=== PATIENT | female | born 1940 | race Caucasian/White ===

== ENCOUNTER 2019-09-26 06:54 | Outpatient (CLI) | payer MEDICARE, SELFPAY ==
[2019-09-26 07:16] LABS: Basophils Absolute Auto 0.1 K/mm3 (0.0-0.1); Basophils Percent Auto 1.9 % (0.2-1.2); Eosinophils Absolute Auto 0.2 K/mm3 (0-0.3); Eosinophils Percent Auto 4.2 % (0-4.4); Hemoglobin 12.6 g/dL (12.0-15.0); Immature Granulocyte Absolute 0.04 K/mm3 (0.00-0.031); Immature Granulocyte Percent A 0.8 % (0-0.5); Lymphocytes Absolute Auto 1.93 K/mm3 (0.9-3.2); Lymphocytes Percent Auto 40.1 % (18.3-44.2); Mean Corpuscular HGB Conc 33.2 g/dl (32-36); Mean Corpuscular Hemoglobin 34.5 pg (26-34); Mean Corpuscular Volume 104.1 fl (80-100); Mean Platelet Volume 9.4 fl (7.4-10.4); Monocytes Absolute Auto 0.4 K/mm3 (0.1-0.6); Monocytes Percent Auto 9.1 % (2.6-8.5); Neutrophils Absolute Auto 2.1 K/mm3 (1.3-6.7); Neutrophils Percent Auto 43.9 % (45.5-73.1); Nucleated Red Blood Cells Perc 0.6 % (0.0-0.2); Platelet Count Result 306 k/mm3 (150-375); Red Blood Count 3.65 M/mm3 (4.2-5.4); Red Cell Distribution Width 13.8 % (11.5-14.5); White Blood Count 4.8 K/mm3 (4.5-10.0)
[2019-09-26 07:20] LABS: Add Urine Microscopic? YES; Appearance Urine Clear (Clear); Bacteria Urine Trace /hpf; Bilirubin Urine Negative (Negative); Blood Urine Negative (Negative); Color Urine Yellow (Yellow); Glucose Urine UA Negative (Negative); Ketones Urine Negative (Negative); Leukocyte Esterase Ur 3+ LEU/UL (NEGATIVE); Mucus Urine Rare /lpf; Nitrate Urine Negative (Negative); Protein Urine Negative (Negative); Specific Grav Ur 1.017 (1.001-1.035); Squamous Epithelial Cell Urine Moderate /hpf (Few); Urobilinogen Urine Negative mg/dL (<2.0)
[2019-09-26 07:33] LABS: Alanine Aminotransferase 28 U/L (4-35); Albumin Level 4.3 g/dL (3.5-5.1); Alkaline Phosphatase 58 U/L (38-126); Aspartate Amino Transferase 27 U/L (14-36); Bilirubin,Total 0.6 mg/dL (0.2-1.3); Blood Urea Nitrogen 13 mg/dL (7-17); Calcium 9.4 mg/dL (8.4-10.2); Carbon Dioxide 28 mmol/L (22-30); Chloride 108 mmol/L (98-107); Cholesterol 175 mg/dL (0-200); Estimated Glomerular Filt Rate > 60; Glucose 109 mg/dL (65-105); HDL Direct 45 mg/dL; Potassium 4.4 mmol/L (3.4-5.0); Sodium 141 mmol/L (137-145); Triglycerides 98 mg/dL (<150)
[2019-09-26 07:44] LABS: LDL Cholesterol Direct 110 mg/dL
[2019-09-26 08:10] LABS: Vitamin D 25 Hydroxy 50.3 ng/mL
== END 2019-09-26 06:55 | disposition home or self-care (01) ==
PROVIDERS: PCP Internal Medicine; Visit Provider Internal Medicine
DX: E78.5 Hyperlipidemia, unspecified (principal); Z79.899 Other long term (current) drug therapy; E55.9 Vitamin D deficiency, unspecified
CPT/HCPCS: 36415; 80053; 80061; 81001; 82306; 84443; 85025

== ENCOUNTER 2019-09-29 07:48 | Outpatient (CLI) | payer MEDICARE, SELFPAY ==
[2019-09-29 09:14] LABS: Hemoglobin A1C 5.8 % (<5.7)
[2019-09-29 09:49] LABS: Folic Acid > 20.0 ng/mL (2.76->20)
== END 2019-09-29 07:49 | disposition home or self-care (01) ==
PROVIDERS: PCP Internal Medicine; Visit Provider Internal Medicine
DX: R73.01 Impaired fasting glucose (principal); D53.1 Other megaloblastic anemias, not elsewhere classified
CPT/HCPCS: 36415; 82607; 82746; 83036

== ENCOUNTER 2019-10-17 16:44 | Emergency (ER) | payer MEDICARE, SELFPAY ==
--- NOTE | ~2019-10-17 | XR_ITS ---
EXAMINATION: XR shoulder RT min 2V INDICATION: Right shoulder pain TECHNIQUE: Four views of the right shoulder are submitted. COMPARISON: None FINDINGS: Normal alignment. No fracture. 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 Soft tissues are unremarkable. IMPRESSION: 1. No acute osseous abnormality. Reviewed, dictated and finalized at location A.
--- NOTE | ~2019-10-17 | XR_ITS ---
EXAMINATION: XR knee RT min 4V DATE: 10/17/2019 18:26 INDICATION: Right knee pain TECHNIQUE: Four views of the right knee were obtained. COMPARISON: 08/10/2018 FINDINGS: There are changes of total knee arthroplasty. There is no evidence of hardware failure or l oosening. Alignment is normal. No fracture or osteochondral lesion. No joint effusion/synovitis. Sof t tissues are unremarkable. IMPRESSION: 1. No acute osseous abnormality. Reviewed, dictated and finalized at location A.
--- NOTE | ~2019-10-17 | XR_ITS ---
EXAMINATION: XR knee LT min 4V DATE: 10/17/2019 18:25 INDICATION: Left knee pain TECHNIQUE: Four views of the left knee were obtained. COMPARISON: 08/10/2018 FINDINGS: There are changes of left knee arthroplasty. There is no evidence of hardware failure or lo osening. Alignment is normal. No fracture or osteochondral lesion. No joint effusion/synovitis. Soft tissues are unremarkable. IMPRESSION: 1. No acute osseous abnormality. Reviewed, dictated and finalized at location A.
[2019-10-17 16:58] VITALS: BP 135/65; PULSE 75; RESP 16; TEMP 37; O2SAT 97
[2019-10-17] MEDS: ACETAMINOPHEN 500 MG TABLET 1000 MG PO (19:03)
--- NOTE | 2019-10-17 19:12 | ED.GENADULT ---
HPI - General Adult General Chief complaint: Fall Stated complaint: fall, lt shoulder and knee pain Time Seen by Provider: 10/17/19 18:26 Source: patient Mode of arrival: ambulatory Limitations: no limitations History of Present Illness HPI narrative: Patient is a 79-year-old female who presents for evaluation of injuries related to a ground-level fall patient notes that she slipped on her [place] on the Right Shoulder and the Bilateral Knees. Patient notes moderate aching pain worse with activity and movement. Patient denies head injury syncope loss of consciousness. Patient on arrival to emergency department is resting comfortably in the room in no distress patient drove herself to the emergency department Related Data Home Medications Medication Instructions Recorded Confirmed acetaminophen 500 mg tablet 500 mg PO Q4H PRN 02/03/19 10/06/19 calcium polycarbophil 625 mg tablet 1,250 mg PO DAILY 02/23/19 vitamin B complex-folic acid 2,000 1 cap PO DAILY 02/23/19 10/06/19 mcg capsule calcium carbonate 600 mg calcium 600 mg PO DAILY 08/17/19 10/06/19 (1,500 mg) tablet Allergies Allergy/AdvReac Type Severity Reaction Status Date / Time meperidine Allergy Unknown Nausea and Verified 08/19/19 08:22 Vomiting General Anesthesia AdvReac Vomiting Uncoded 08/19/19 08:22 Review of Systems Review of Systems: All systems reviewed & are unremarkable except as noted in HPI and below PMFSH Past Medical History Medical History Arthritis of left shoulder region BMI 26.0-26.9,adult Carpal tunnel syndrome Elevated cholesterol Surgical History Surgical History History of section History of hip replacement 2018 History of knee replacement 2017 & 2016 Social History Social History Smoking status: Former smoker Tobacco type: cigarettes Smoking end date: 03/30/81 Alcohol intake: current Gender identity (if verbalized by the patient): Female Exam Narrative: Exam Narrative: GENERAL: Well-appearing, well-nourished, and in no acute distress. HEAD: Normocephalic, atraumatic. EYES: PERRLA and EOMI. ENT: Nares clear, no rhinorrhea or epistaxis. Mucous membranes moist. CHEST: Clear to auscultation. No respiratory distress. No wheezes rales or rhonchi HEART: Regular rate and rhythm. No murmur heard. Normal peripheral pulses. EXTREMITIES: Normal range of motion. No edema. Small contusions to the anterior bilateral knees. Tenderness of the right rotator cuff with minimal swelling noted no cervical spine tenderness to palpation. SKIN: Warm, dry, no rash. NEURO: No focal deficits. Alert and oriented x3. Cranial nerves II through XII grossly intact. Neurovascularly intact PSYCH: Normal mood and affect. Course Course Emergency Course: Patient in the room aware of case findings treatment plan and diagnosis agreeing to follow-up as directed with orthopedic surgeon Vital Signs Vital signs: Vital Signs Temperature 98.6 F 10/17/19 16:58 Pulse Rate 75 10/17/19 16:58 Respiratory Rate 16 10/17/19 16:58 Blood Pressure 135/65 10/17/19 16:58 Pulse Oximetry 97 10/17/19 16:58 Temperature 98.6 F 10/17/19 16:58 Pulse Rate 75 10/17/19 16:58 Respiratory Rate 16 10/17/19 16:58 Blood Pressure 135/65 10/17/19 16:58 Pulse Oximetry 97 10/17/19 16:58 Medical Decision Making MDM Narrative Medical decision making narrative: Patients injury or pain is consistent with musculoskeletal etiology. No signs of neurological or vascular compromise on exam. Compartments and tisues are soft without signs of compartment syndrome. Pain is felt appropriate for further evaluation on an outpatient basis. Vital Signs Vital Signs: Vital Signs Temperature 98.6 F 10/17/19 16:58 Pulse Rate 75 10/17/19 16:58 Respirato
[2019-10-17 19:26] VITALS: BP 128/80; PULSE 80; RESP 18; O2SAT 99
== END 2019-10-17 19:28 | disposition home or self-care (01) ==
PROVIDERS: Emergency Provider Emergency Medicine; PCP Internal Medicine
DX: S40.011A Contusion of right shoulder, initial encounter (principal); S80.01XA Contusion of right knee, initial encounter; S80.02XA Contusion of left knee, initial encounter; W01.0XXA Fall on same level from slipping, tripping and stumbling without subsequent striking against object, initial encounter
CPT/HCPCS: 73030; 73564; 99284; A9270

== ENCOUNTER 2019-11-12 09:04 | Emergency (ER) | payer MEDICARE, SELFPAY ==
[2019-11-12 09:19] VITALS: BP 138/70; PULSE 81; RESP 20; TEMP 36.4; O2SAT 98
--- NOTE | 2019-11-12 09:20 | ED.GENADULT ---
HPI - General Adult General Chief complaint: Skin/Abscess/Foreign Body Stated complaint: Rash Time Seen by Provider: 11/12/19 09:20 Source: patient Mode of arrival: ambulatory History of Present Illness HPI narrative: 79-year-old female patient presents to the [facility] with complaints of a rash to the right leg along with an itchy rash to her toes and foot area. Patient states that the rash on the leg has been there for about a week now and thought it was poison [place]. Patient states it started off slightly itchy with a slight burning pain. Patient states the pain has improved. Patient states she has been treating it like a poison [place] but states that has not dried up and has not improved at all. Patient states that she does walk around barefoot a lot and states that she noticed that she has a rash in between her second and third toe that is very itchy. Patient states she has used calamine lotion, printed, and some hydrocortisone cream. Patient states that she thought it was also possibly poison [place] to the foot area. Patient denies any fevers, nausea, vomiting or diarrhea. Related Data Home Medications Medication Instructions Recorded Confirmed vitamin B complex-folic acid 2,000 1 cap PO DAILY 02/23/19 11/12/19 mcg capsule calcium carbonate 600 mg calcium 600 mg PO DAILY 08/17/19 11/12/19 (1,500 mg) tablet Allergies Allergy/AdvReac Type Severity Reaction Status Date / Time meperidine Allergy Unknown Nausea and Verified 08/19/19 08:22 Vomiting General Anesthesia AdvReac Vomiting Uncoded 08/19/19 08:22 Review of Systems Review of Systems: Narrative: CONSTITUTIONAL: Denies fever, chills, or sweats. EYES: Denies visual changes, redness, or discharge. ENT: Denies rhinorrhea, congestion, sore throat, or otalgia. CARDIOVASCULAR: Denies chest pain, palpitations, or edema. RESPIRATORY: Denies cough or dyspnea. GASTROINTESTINAL: Denies abdominal pain, nausea, vomiting, or diarrhea. GENITOURINARY: Denies dysuria or hematuria. SKIN: Positive rash with itching to right foot. Positive rash to right lower extremity MUSCULOSKELETAL: Denies back pain, joint pain, or myalgia. NEUROLOGIC: Denies headache, numbness, or weakness. PSYCHIATRIC: Denies anxiety or depression. [facility] Past Medical History Medical History Arthritis of left shoulder region BMI 26.0-26.9,adult BMI 27.0-27.9,adult Carpal tunnel syndrome Elevated cholesterol Surgical History Surgical History History of section History of hip replacement 2018 History of knee replacement 2017 & 2016 Family History Family History Mother Acute myocardial infarction, Onset Age: 62 Other Family history of malignant neoplasm of breast Social History Social History Smoking status: Former smoker Tobacco type: cigarettes Smoking end date: 03/30/81 Alcohol intake: current Gender identity (if verbalized by the patient): Female Comments At the time of my signature I agree with nursing past medical history, surgical, social, and family history. There is no relevant family history pertinent to the presenting complaint. Exam Narrative: Exam Narrative: GENERAL: Well-appearing, well-nourished, and in no acute distress. HEAD: Normocephalic, atraumatic. EYES: PERRLA and EOMI. ENT: Nares clear, no rhinorrhea or epistaxis. Mucous membranes moist. NECK: Supple. No lymphadenopathy CHEST: Clear to auscultation. No respiratory distress. HEART: Regular rate and rhythm. No murmur heard. Normal peripheral pulses. ABDOMEN: Soft, nontender, nondistended, normal active bowel sounds. EXTREMITIES: Normal range of motion. No edema. SKIN: Patient has clustered blistery rash noted to the medial aspect of the right lower extremity. There is no open
== END 2019-11-12 09:41 | disposition home or self-care (01) ==
PROVIDERS: Emergency Provider Nurse Practitioner Family; PCP Internal Medicine
DX: B35.3 Tinea pedis (principal); B02.9 Zoster without complications; Z87.891 Personal history of nicotine dependence; E78.00 Pure hypercholesterolemia, unspecified; M19.012 Primary osteoarthritis, left shoulder; Z96.653 Presence of artificial knee joint, bilateral; Z96.641 Presence of right artificial hip joint
CPT/HCPCS: 99213; G0463

== ENCOUNTER 2019-11-24 16:02 | Outpatient (CLI) | payer MEDICARE, SELFPAY ==
[2019-11-24 17:50] LABS: Anion Gap 7 mmol/L (8-16); Blood Urea Nitrogen 22 mg/dL (7-17); Calcium 9.5 mg/dL (8.4-10.2); Carbon Dioxide 24 mmol/L (22-30); Chloride 108 mmol/L (98-107); Estimated Glomerular Filt Rate > 60; Glucose 99 mg/dL (65-105); Potassium 3.9 mmol/L (3.4-5.0); Sodium 139 mmol/L (137-145)
[2019-11-24 18:01] LABS: Parathyroid Intact 54.7 pg/mL (7.5-53.5)
[2019-11-24 18:33] LABS: Hemoglobin A1C 5.4 % (<5.7)
[2019-11-24 19:30] LABS: Vitamin D 25 Hydroxy 41.8 ng/mL
== END 2019-11-24 16:03 | disposition home or self-care (01) ==
PROVIDERS: PCP Internal Medicine; Visit Provider Internal Medicine Endocrinology, Diabetes & Metabolism
DX: M85.80 Other specified disorders of bone density and structure, unspecified site (principal); R73.03 Prediabetes
CPT/HCPCS: 36415; 80048; 82306; 83036; 83970

== ENCOUNTER 2020-01-12 06:43 | Outpatient (CLI) | payer MEDICARE, SELFPAY ==
--- NOTE | ~2020-01-12 | MR_ITS ---
EXAMINATION: MR shoulder RT wo con DATE: 01/12/2020 07:52 INDICATION: Right shoulder pain TECHNIQUE: Magnetic resonance imaging (MRI) of the right shoulder was performed without intravenous c ontrast. Sequences included axial PD-weighted FS FSE, coronal oblique PD-weighted FS FSE, coronal obl ique T2-weighted FS FSE, sagittal PD-weighted FS FSE, and sagittal T1-weighted SE. COMPARISON: None. FINDINGS: Coracoacromial arch: The acromion undersurface is curved in morphology (type II). The coracoacromial ligament is normal. M oderate acromioclavicular osteoarthritis. Rotator cuff: Mild to moderate supraspinatus tendinopathy and severe infraspinatus tendinopathy with complete full- thickness tear along the greater tuberosity footplate of both tendons. The tear margin is retracted a pproximately 4 cm medial to the level of the rim of the glenoid. There is a small amount of residual torn tendon material along the middle facet footplate and minimal amount along the anterior aspect of the supraspinatus footplate. The teres minor tendon is normal. The tear extends anteriorly across th e rotator cuff interval to involve the entire tendinous insertion of the subscapularis tendon to the lesser tuberosity footplate. The bursal sided portion of the tendon remains intact and tethered by th e contiguous fibers extending across the transverse humeral ligament. The more caudal muscular attach ment of the subscapularis along the inferior margin of the lesser tuberosity also appears to remain i ntact. There is a split tear between these 2 intact portions of the subscapularis tendon which is med ially subluxed the long head of the biceps tendon which extends craniocaudally at the level of the gl enohumeral joint line. There is medial retraction and mild fatty muscular atrophy of the supraspinatu s, infraspinatus and subscapularis muscle bellies. There is prominent edema within and surrounding ea ch of these muscle bellies most prominently in the infraspinatus muscle belly. Both findings suggesti ng either subacute or acute on chronic tears. Biceps tendon, glenoid labrum and glenohumeral cartilage: Thickening and increased signal consistent with tendinopathy of the long head biceps tendon, moderate severity at the intra-articular portion of the tendon and mild at the extra-articular portion of the tendon where longitudinal split tear is evident with partial-thickness high signal intensity cleft a long the posterior margin of the tendon below level of the intertubercular groove. Degenerative teari ng of the superior glenoid labrum extending from the 3:00 position anteriorly to the 10:00 position p osteriorly. Chondral swelling and shallow fissuring at the inferior aspect of the glenoid. Partial-th ickness cartilage loss and fissuring along the posterior superior rim of the glenoid. Deeper partial- thickness cartilage loss with chondral surface regularity along the cephalad aspect of the humeral he ad. Small marginal osteophytes along the humeral head. Fluid: Small glenohumeral joint effusion with small amount of debris and/or synovitis in the recesses of the joint space. No discrete loose osteochondral bodies. There is extension of fluid through the full-th ickness rotator cuff tear into the subacromial/subdeltoid and deep subscapular bursae. Bones: Normal marrow signal with no edema, fracture or pathologic marrow replacing process. IMPRESSION: 1. Large rotator cuff tear involving the entire and full-thickness of the supraspinatus and infraspin atus tendons and the entire tendinous lesser tuberosity footplate of the subscapularis tendon. 2. Medial subluxation of the long head biceps tendon across the subscapularis tendon tear defect with moderate tendinopathy and longitudinal split tearing of the long head biceps tendon. 3. Mild glenohumeral osteoarthritis with degenerative tearing of the superior glenoid labrum. 4
== END 2020-01-12 06:44 | disposition home or self-care (01) ==
LOC: ANHIMG 06:48
PROVIDERS: PCP Internal Medicine; Visit Provider Orthopaedic Surgery
DX: M19.011 Primary osteoarthritis, right shoulder (principal); M75.101 Unspecified rotator cuff tear or rupture of right shoulder, not specified as traumatic
CPT/HCPCS: 73221

== ENCOUNTER 2020-01-12 14:00 | Outpatient (RCR) | payer MEDICARE, SELFPAY ==
--- NOTE | 2019-10-18 13:56 | PTOPEVAL ---
Thank you for referring Brenda Maher to [facility]. Please review, sign, date and return this plan of care MOE. Pt referred to therapy due to dario shoulder pain. She requires additional skilled therapy to address UE impairments of limited range, weakness and pain. Cont PT 2x/wk x 5 wk. I agree with and certify that the following plan of care is medically necessary. Referring Physician Date Admitting Provider: Attending Provider: Sidney Alva MD *PT Outpatient Evaluation Start: 10/18/19 12:38 Freq: Status: Active Protocol: Document 10/18/19 12:37 CAP (Rec: 10/18/19 13:15 CAP [email or web address]) Therapy Assessment Status Assessment Status Assessment Status Evaluation Outpatient Past Medical History Past Medical History Source of Past Medical History Patient,Recalled from Previous Visit, Confirmed with Patient /Family Respiratory History Hx Sleep Apnea Yes: CPAP Musculoskeletal History Hx Back Pain Yes Hx Joint Replacement Yes: dario TKR, right THR 2018 Hx Other Musculoskeletal Disorders Yes: ankle fracture ' Reproductive History Hx Post Menopausal Yes Evaluation Information Problem Diagnosis dario shoulder pain Onset 1-2 months ago Cause fall for right, unknown cause on left Additional Evaluation Detail She tries to walk 10,000 steps a day. She performs housework and yardwork, but stops after 30' due to back pain. Subjective Information Reports left shoulder and UE Query Text:As Reported By Patient/ pain that is greater at night. Family She sleeps on her stomach. Reports she had a fall yesterday, when she slipped on a mess on the floor landing on right shoulder. X-rays were taken, nothing broken. She has no pain with dario UE rest, but increased pain with right UE reaching or overhead movement. She reports limitation with right shoulder motion due to pain. Diagnostic Tests X-Rays For This Problem Yes: no fracture of right Gh joint, OA changes of left GH Pain Assessment Timing of Pain Assessment Timing of Pain Assessment Assessment Pain Scale Pain Scale Used Numeric (1 - 10) Self Report Pain Assessment Left Shoulder(s) Reported Pain Level 0 Pain Description
[2019-11-17 08:07] VITALS: BP_SYST 180
--- NOTE | 2019-11-17 09:17 | PTOPEVAL ---
Thank you for referring Brenda Maher to [facility] [place].? The patient is scheduled to be seen for therapy? 2 x/week for 4 weeks. Please review, sign, date and return this plan of care MOE. I agree with and certify that the following plan of care is medically necessary. Referring Physician Date Admitting Provider: Attending Provider: Sidney Alva MD Physical Therapy progress note *PT Outpatient Evaluation Start: 10/18/19 12:38 Freq: Status: Active Protocol: Document 11/17/19 08:07 ELVIN (Rec: 11/17/19 09:04 ELVIN [email or web address]) Therapy Assessment Status Assessment Status Assessment Status Re-evaluation Outpatient Past Medical History Past Medical History Source of Past Medical History Patient,Recalled from Previous Visit, Confirmed with Patient /Family Cardiovascular History Hx Hypercholesterolemia Yes Respiratory History Hx Sleep Apnea Yes: CPAP Musculoskeletal History Hx Back Pain Yes Hx Joint Replacement Yes: dario TKR, right THR 2018 Hx Other Musculoskeletal Disorders Yes: ankle fracture ' Reproductive History Hx Post Menopausal Yes Evaluation Information Problem Diagnosis daroi shoulder pain Onset 1-2 months ago Cause fall for right, unknown cause on left Additional Evaluation Detail She tries to walk 10,000 steps a day. She performs housework and yardwork, but stops after 30' due to back pain. Subjective Information She reports she is able to Query Text:As Reported By Patient/ move the right UE more than Family she was initially. She is able to lift a cup of coffee, but has difficulty. She requires 2 hands to get the plates from the cabinets. She cont to have pain with reaching overhead, ADL's and carrying objects. She reports no problems with her exercise. She continues to favor the right UE with the range exercise. Reports her left shoulder pain is not waking her at night nor is not as painful in the morning. Pain Assessment Timing of Pain Assessment Timing of Pain Assessment Re-assessment Pain Scale Pain Scale Used Numeric (1 - 10) Self Report Pain Assessment Left Shoulder(s) Reported Pain Level
--- NOTE | 2019-12-15 09:17 | PTOPEVAL ---
Thank you for referring Brenda Maher to [facility].? The patient is scheduled to be seen for therapy? 2 x/week for 4 weeks to address shoulder strength. Please review, sign, date and return this plan of care MOE. I agree with and certify that the following plan of care is medically necessary. Referring Physician Date Admitting Provider: Attending Provider: Sidney Alva MD *PT Outpatient Evaluation Start: 10/18/19 12:38 Freq: Status: Active Protocol: Document 12/15/19 08:02 ELVIN (Rec: 12/15/19 08:57 CAP [id number]) Therapy Assessment Status Assessment Status Assessment Status Re-evaluation Evaluation Information Problem Diagnosis dario shoulder pain Onset 1-2 months ago Cause fall for right, unknown cause on left Additional Evaluation Detail She tries to walk 10,000 steps a day. She performs housework and yardwork, but stops after 30' due to back pain. Subjective Information She reports increased soreness Query Text:As Reported By Patient/ and pain after last treatment Family . She is able to reach better with her right UE. She is able to lift a cup of coffee better with the right UE. She cont requires 2 hands to get the plates from the cabinets. She cont to have pain with ADL/IADL's of reaching overhead, donning/doffing clothes and carrying objects. Denies problems with reaching behind her back. She is able to manage the seatbelt and stearing wheel better since therapy. She spent a 1 1/2 hour of cleaning [place] off the garage on Thursday with use of her right UE doing the primary work. Reports her left shoulder pain is not waking her at night nor is not as painful in the morning. Pain Assessment Timing of Pain Assessment Timing of Pain Assessment Re-assessment Pain Scale Pain Scale Used Numeric (1 - 10) Self Report Pain Assessment Left Shoulder(s) Reported Pain Level 0 Pain Frequency Continuous Right Shoulder(s)
[2020-01-12 13:59] VITALS: BP_SYST 175
--- NOTE | 2020-01-12 14:55 | PTOPEVAL ---
Thank you for referring Brenda Maher to [facility].? Pt has received 23 therapy visits to address dario shoulder impairments. She has reached maximal potential with skilled therapy services at this time. DC skilled PT services with pt to cont with her HEP. Please review, sign, date and return this plan of care MOE. I agree with and certify that the following plan of care is medically necessary. Referring Physician Date Attending Provider: Sidney Alva MD *PT Outpatient Evaluation Start: 10/18/19 12:38 Freq: Status: Active Protocol: Document 01/12/20 13:59 CAP (Rec: 01/12/20 14:35 CAP [email or web address]) Therapy Assessment Status Assessment Status Assessment Status Re-evaluation/Discharge Note Outpatient Past Medical History Past Medical History Source of Past Medical History Patient,Recalled from Previous Visit, Confirmed with Patient /Family Cardiovascular History Hx Hypercholesterolemia Yes Respiratory History Hx Sleep Apnea Yes: CPAP Musculoskeletal History Hx Back Pain Yes Hx Joint Replacement Yes: dario TKR, right THR 2017 Hx Other Musculoskeletal Disorders Yes: ankle fracture Reproductive History Hx Post Menopausal Yes Evaluation Information Problem Diagnosis dario shoulder pain Onset 1-2 months ago Cause fall for right, unknown cause on left Additional Evaluation Detail She tries to walk 10,000 steps a day. She performs housework and yardwork, but stops after 30' due to back pain. Subjective Information She reports she had a MRI Query Text:As Reported By Patient/ today. She reports cont Family difficulty lifting objectis with her right UE. States she will have sharp pain when attempting to lift something. She has pain and limitation with reaching and lifting motion of right right. She is limited with ADL's. Reports her left arm is better without any increased pain or limitations. Pain Assessment Timing of Pain Assessment Timing of Pain Assessment Re-assessment Pain Scale Pain Scale Used Numeric (1 - 10) Self Report Pain Assessment Left Shoulder(s) Reported Pain Level 0 Right Shoulder(s) Reported Pain Level 0 Pain Description Sharp Pain Frequency Intermittent G
== END 2020-01-13 10:52 | disposition home or self-care (01) ==
LOC: ANHPT 14:00
PROVIDERS: PCP Internal Medicine; Visit Provider Orthopaedic Surgery
DX: M25.511 Pain in right shoulder (principal); M25.512 Pain in left shoulder
CPT/HCPCS: 97110; 97112; 97140; 97162; 97530

== ENCOUNTER 2020-02-20 11:24 | Outpatient (CLI) | payer MEDICARE, SELFPAY ==
[2020-02-20 12:32] LABS: Hemoglobin A1C 5.1 % (<5.7)
== END 2020-02-20 11:25 | disposition home or self-care (01) ==
PROVIDERS: PCP Internal Medicine; Visit Provider Internal Medicine
DX: R73.01 Impaired fasting glucose (principal)
CPT/HCPCS: 36415; 83036

== ENCOUNTER 2020-04-17 07:32 | Outpatient (CLI) | payer MEDICARE, SELFPAY ==
--- NOTE | ~2020-04-17 | MM_ITS ---
EXAMINATION: MM screening heather BI w yancy HISTORY: Screening mammogram TECHNIQUE: Craniocaudal and mediolateral oblique 3-D tomosynthesis images were obtained and synthetic 2-D images were generated. CAD analysis was submitted and interpreted. COMPARISON: 03/03/2019, 03/16/2017, 02/26/2016 bilateral digital screening mammogram examinations BREAST PARENCHYMAL COMPOSITION: There are scattered areas of fibroglandular density. FINDINGS: There is no evidence of suspicious mass, calcification, or architectural distortion to sugg est malignancy in either breast. There has been no suspicious interval change. IMPRESSION: 1. No mammographic evidence of malignancy. 2. Recommend routine screening mammography in one year. BI-RADS Category 1: Negative Reviewed, dictated and finalized at location A. [employer]
== END 2020-04-17 07:33 | disposition home or self-care (01) ==
LOC: ANHIMG 07:36
PROVIDERS: PCP Internal Medicine; Visit Provider Obstetrics & Gynecology
DX: Z12.31 Encounter for screening mammogram for malignant neoplasm of breast (principal)
CPT/HCPCS: 77063; 77067

== ENCOUNTER 2020-08-14 07:12 | Outpatient (CLI) | payer MEDICARE, SELFPAY ==
[2020-08-14 07:57] LABS: Basophils Absolute Auto 0.1 K/mm3 (0.0-0.1); Basophils Percent Auto 1.7 % (0.2-1.2); Eosinophils Absolute Auto 0.2 K/mm3 (0-0.3); Eosinophils Percent Auto 4.5 % (0-4.4); Hematocrit 35.9 % (37.0-47.0); Hemoglobin 11.8 g/dL (12.0-15.0); Immature Granulocyte Absolute 0.02 K/mm3 (0.00-0.031); Immature Granulocyte Percent A 0.4 % (0-0.5); Lymphocytes Absolute Auto 1.75 K/mm3 (0.9-3.2); Lymphocytes Percent Auto 37.4 % (18.3-44.2); Mean Corpuscular HGB Conc 32.9 g/dl (32-36); Mean Corpuscular Hemoglobin 34.5 pg (26-34); Mean Platelet Volume 9.4 fl (7.4-10.4); Monocytes Absolute Auto 0.4 K/mm3 (0.1-0.6); Monocytes Percent Auto 9.4 % (2.6-8.5); Neutrophils Absolute Auto 2.2 K/mm3 (1.3-6.7); Neutrophils Percent Auto 46.6 % (45.5-73.1); Nucleated Red Blood Cells Perc 0.4 % (0.0-0.2); Platelet Count Result 297 k/mm3 (150-375); Red Blood Count 3.42 M/mm3 (4.2-5.4); Red Cell Distribution Width 15.1 % (11.5-14.5); White Blood Count 4.7 K/mm3 (4.5-10.0)
[2020-08-14 08:09] LABS: Alanine Aminotransferase 30 U/L (4-35); Albumin Level 4.1 g/dL (3.5-5.1); Alkaline Phosphatase 57 U/L (38-126); Anion Gap 2 mmol/L (8-16); Aspartate Amino Transferase 33 U/L (14-36); Bilirubin,Total 0.6 mg/dL (0.2-1.3); Blood Urea Nitrogen 13 mg/dL (7-17); Calcium 9.8 mg/dL (8.4-10.2); Carbon Dioxide 32 mmol/L (22-30); Chloride 107 mmol/L (98-107); Cholesterol 154 mg/dL (0-200); Estimated Glomerular Filt Rate > 60; Glucose 95 mg/dL (65-105); HDL Direct 60 mg/dL; Potassium 4.2 mmol/L (3.4-5.0); Sodium 141 mmol/L (137-145); Triglycerides 59 mg/dL (<150)
[2020-08-14 08:26] LABS: Hemoglobin A1C 5.2 % (<5.7)
[2020-08-14 08:34] LABS: LDL Cholesterol Direct 84 mg/dL
[2020-08-14 09:34] LABS: Creatinine Urine 78.9 mg/dL
[2020-08-14 09:43] LABS: MALB Creatinine Ratio < 7.6 mg/g (0-30); Microalbumin Urine Random < 6.0 mg/L (0-16.7)
[2020-08-14 09:50] LABS: Vitamin D 25 Hydroxy 40.3 ng/mL
== END 2020-08-14 07:13 | disposition home or self-care (01) ==
LOC: ANHLAB 07:19
PROVIDERS: PCP Internal Medicine; Visit Provider Internal Medicine
DX: E55.9 Vitamin D deficiency, unspecified (principal); M85.80 Other specified disorders of bone density and structure, unspecified site; R73.01 Impaired fasting glucose; Z79.899 Other long term (current) drug therapy; E78.2 Mixed hyperlipidemia
CPT/HCPCS: 36415; 80053; 80061; 82043; 82306; 83036; 84443; 85025

== ENCOUNTER 2020-08-25 06:52 | Outpatient (CLI) | payer MEDICARE, SELFPAY ==
[2020-08-25 07:17] LABS: Hematocrit 35.3 % (37.0-47.0); Hemoglobin 11.7 g/dL (12.0-15.0); Mean Corpuscular HGB Conc 33.1 g/dl (32-36); Mean Corpuscular Hemoglobin 34.3 pg (26-34); Mean Corpuscular Volume 103.5 fl (80-100); Mean Platelet Volume 9.4 fl (7.4-10.4); Platelet Count Result 293 k/mm3 (150-375); Red Blood Count 3.41 M/mm3 (4.2-5.4); Red Cell Distribution Width 14.7 % (11.5-14.5); White Blood Count 5.2 K/mm3 (4.5-10.0)
== END 2020-08-25 06:53 | disposition home or self-care (01) ==
PROVIDERS: PCP Internal Medicine; Visit Provider Internal Medicine
DX: D53.1 Other megaloblastic anemias, not elsewhere classified (principal)
CPT/HCPCS: 36415; 85027

== ENCOUNTER 2020-08-29 15:17 | Outpatient (CLI) | payer MEDICARE, SELFPAY ==
--- NOTE | ~2020-08-29 | CT_ITS ---
EXAMINATION: CT brain wo con DATE: 08/29/2020 15:44 INDICATION: Unsteady gait. TECHNIQUE: Computed tomography (CT) of the head was performed without intravenous contrast. The mA wa s adjusted according to patient size. Iterative reconstruction technique was employed. The dose-lengt h product was 605.33 mGy-cm. COMPARISON: None FINDINGS: There is no intracranial hemorrhage, acute infarction, or abnormal intracranial mass lesion . The ventricles are normal in size. There are likely changes of ocular lens replacement surgeries. T he paranasal sinuses are clear. The mastoid air cells are normal. IMPRESSION: 1. Normal brain. Reviewed, dictated and finalized at location A. IMPRESSION: 1. Normal brain.
== END 2020-08-29 15:18 | disposition home or self-care (01) ==
PROVIDERS: PCP Internal Medicine; Visit Provider Internal Medicine
DX: R26.81 Unsteadiness on feet (principal)
CPT/HCPCS: 70450

== ENCOUNTER 2020-09-26 08:00 | Outpatient (RCR) | payer MEDICARE, SELFPAY ==
--- NOTE | 2020-07-13 10:08 | PTOPEVAL ---
PHYSICAL THERAPY EVALUATION AND PLAN OF CARE 07-13-20 Thank you for referring Brenda Maher to [facility], for the diagnosis of s/p R reverse total shoulder replacement.? She is scheduled to be seen for therapy? 2 x/week for 3 weeks. Please review, sign, date and return this plan of care MOE. I agree with and certify that the following plan of care is medically necessary. Referring Physician Date Referring Provider: Scout Lea MD *PT Outpatient Evaluation Document 07/13/20 09:00 SOHEILA (Rec: 07/13/20 09:57 SOHEILA [id number]) Outpatient Past Medical History Past Medical History Source of Past Medical History Recalled from Previous Visit, Confirmed with Patient/Family Neurological History Hx Neurological Disorders No Significant History Cardiovascular History Hx Hypercholesterolemia Yes Respiratory History Hx Sleep Apnea Yes: use oral appliance Musculoskeletal History Hx Arthritis Yes: arthritis all over body Hx Back Pain Yes: chronic, arthritis; scoliosis Hx Joint Replacement Yes: B TKR, R THR 2018 Hx Other Musculoskeletal Disorders Yes: R ankle fracture- casted ' Endocrine History Hx Endocrine Disorders No Significant History Reproductive History Hx Post Menopausal Yes Evaluation Information Problem Diagnosis R reverse total shoulder replacement Onset June 19, 2020 Subjective Information since surgery, wearing sling Query Text:As Reported By Patient/ all time; per pt- dr said to Family use the sling for one more week, to for PT and did not have any other [facility] get some exercises for arm, but only really using sqeeze ball and using R arm to brush teeth and few light tasks Prior Level of Function Activity Level (Last 3 Months) Occupation retired Hand Dominance Right Activity of Daily Living Ability Independent Indoor/Home Mobility Independent Community Mobility Independent Stairs Ability Independent Functional Cognition (Planning, Shopping Independent , Taking Medications) Cooking Yes Cleaning Yes Laundry Yes Shopping Yes Driving Yes Home Setting Home Type House Living Situation Alone Mobility Assistive Devices (Used Last 3 None
--- NOTE | 2020-08-01 09:53 | PTOPEVAL ---
PHYSICAL THERAPY RE-EVALUATION AND UPDATED PLAN OF CARE 08-01-20 Refer to the clinical summary below, for her status with today's reeval to the initial evaluation. Thank you for referring Brenda Maher to [facility].? She is scheduled to continue therapy? 2 x/week for 3 weeks. Please review, sign, date and return this updated plan of care MOE. I agree with and certify that the following plan of care is medically necessary. Referring Physician Date Referring Provider: Scout Lea MD Document 08/01/20 09:10 SOHEILA (Rec: 08/01/20 09:53 SOHEILA [id number]) Assessment Status Re-evaluation Subjective Information Brenda reports: shoulder is Query Text:As Reported By Patient/ better- moving it more and not Family hurt as much; with sleeping, awaken due to shoulder pain 2x/week; have trouble reaching back for things; last used sling about one week ago- had spasms in shoulder; doing more at home- able to mop the kitchen floor; problems getting food out of microwave due to it is higher on cabinet; Pain Assessment Timing of Pain Assessment Timing of Pain Assessment Assessment Pain Scale Pain Scale Used Numeric (1 - 10) Self Report Pain Assessment Right Shoulder(s) Reported Pain Level 0 Pain Description Aching,Dull Pain Frequency Chronic Other Pain Description lateral and anterior humerus Lowest Pain Intensity 0 Greatest Pain Intensity 2 Pain Aggravating Factors Exercise/Activity Other Pain Aggravating Factors reaching out to the side and behind body Pain Score Pain Score 0: Self Report Additional Pain Score Comments when walking for fitness, about 45 minutes, shoulder feels better when tuck thumb into shirt with button for support; Quick DASH score of 30% limitation Interventions Used Interventions Used By Clinicians Exercise Pain Relief Interventions Used By Ice,Inactivity/Rest Patient Other Alleviating Interventions use ice after exercises; Upper Extremity Range of Motion Scapular/ Shoulder Range of Motion Right Shoulder Flexion - Active 120 Shoulder Flexion - Passive 145 Shoulder Lateral Rotation - Active reach palm to back of head Query Text:Reach Behind the Head Scapular/Shoulder Range of Motion scaption 105'active/ 115' Comments passive ; no pain with R
--- NOTE | 2020-08-22 08:37 | PTOPEVAL ---
PHYSICAL THERAPY RE-EVALUATION AND UPDATED PLAN OF CARE 08-22-20 Refer to the clinical summary below, for her status with today's reevaluation with the last reeval. She has made improvements and additional PT is indicated to continue 1-2 x/wk for 4 weeks, to increase R shoulder strength with progression of her home exercises. Thank you for referring Brenda Maher to [facility].? Please review, sign, date and return this plan of care MOE. I agree with and certify that the following plan of care is medically necessary. Referring Physician Date Referring Provider: Scout Lea MD Document 08/22/20 08:00 SOHEILA (Rec: 08/22/20 08:37 SOHEILA [id number]) Assessment Status Re-evaluation Subjective Information Brenda reports: still having Query Text:As Reported By Patient/ problems reaching behind back Family to hook bra; reaching out to the side and lifting still hurts; can reach out and turn on radio beside her bed without hurting now; Pain Assessment Timing of Pain Assessment Timing of Pain Assessment Assessment Pain Scale Pain Scale Used Numeric (1 - 10) Self Report Pain Assessment Right Shoulder(s) Reported Pain Level 0 Pain Description Sharp Pain Frequency Chronic,Intermittent Other Pain Description sharp pain in anterior shoulder and anterior-upper humerus Lowest Pain Intensity 0 Greatest Pain Intensity 3 Pain Aggravating Factors Exercise/Activity,Lifting Other Pain Aggravating Factors cutting food, hooking bra, hang up clothes in closet Pain Behaviors Grimacing,Guarding Pain Score Pain Score 0: Self Report Additional Pain Score Comments reports is not waking up from sleeping due to her shoulder pain Interventions Used Interventions Used By Clinicians Exercise Pain Relief Interventions Used By Inactivity/Rest Patient Other Alleviating Interventions not using ice very much- reminded PRN use; hot shower feels good; Upper Extremity Range of Motion Scapular/ Shoulder Range of Motion Right Shoulder Flexion - Active 130 Shoulder Abduction - Active 130 Shoulder Medial Rotation - Active fingers to bra strap Query Text:Reach Behind the Back Shoulder Lateral Rotation - Active palm to back of head Query Text:Reach Behind the Head Scapular/Shoulder Range of Motion - warm up on pullys- shoulder Comments flexion and scaption Upper Extremity Muscle Strength Testing General Upper Extremity Strength Gross U
--- NOTE | 2020-08-30 11:03 | PTOPEVAL ---
PHYSICAL THERAPY EVALUATION AND PLAN OF CARE 08-30-20 Thank you for referring Brenda Maher to [facility], for the diagnosis of gait issues/imbalance.? Mrs. Maher is currently receiving PT here s/p R shoulder surgery, with orders from Dr. Lea. The gait imbalance was added to her shoulder plan of care. She is scheduled to be seen for therapy? for her balance/gait, 1-2 x/wk, for 3 weeks. Please review, sign, date and return this plan of care MOE. I agree with and certify that the following plan of care is medically necessary. Referring Physician Date Referring Provider: Dr. Alva *PT Outpatient Evaluation Document 08/30/20 10:05 SOHEILA (Rec: 08/30/20 11:03 SOHEILA [id number]) Past Medical History Source of Past Medical History Recalled from Previous Visit, Confirmed with Patient/Family Neurological History Hx Neurological Disorders No Significant History Cardiovascular History Hx Hypercholesterolemia Yes Respiratory History Hx Sleep Apnea Yes: use oral appliance Musculoskeletal History Hx Arthritis Yes: arthritis all over body Hx Back Pain Yes: chronic, arthritis; scoliosis Hx Joint Replacement Yes: B TKR, R THR 2017 Hx Other Musculoskeletal Disorders Yes: R ankle fracture- casted ' Endocrine History Hx Endocrine Disorders No Significant History Reproductive History Hx Post Menopausal Yes Evaluation Information Problem Diagnosis balance issues/ gait abnormalities, core and LE strengthening Onset Mar 2020 Subjective Information about 6 months ago, some Query Text:As Reported By Patient/ balance problems noticed; did Family have few times of R knee buckling when going down stairs; has not had any falls; when first get up in the morning or after sitting too long, walk with wobble- not able to walk a straight line; Previous Treatments Previous Treatments For This Problem no PT treatment for balance or gait Prior Level of Function Comments Additional Prior Level of Function activity level: 10,000 steps Comments per day; is not doing any leg exercises at home, other than walking; active with home tasks, yard work for about 30 minutes, then have back pain and need to stop and rest, use heat, then can return to
--- NOTE | 2020-09-26 08:57 | PTOPEVAL ---
PHYSICAL THERAPY DISCHARGE 09-26-20 Refer to the clinical summary for her status at today's discharge, compared to the last reevaluation. The goals were achieved for her LE strength and balance. And partially achieved for her R shoulder. She will be discharged from PT services at this time, and to continue with her home exercises and activity level progression as tolerataed. Thank you for referring Brenda Maher to [facility].? Please review, sign, date and return this Discharge MOE. I agree with and certify that the following plan of care is medically necessary. Referring Physician Date Referring Provider: Dr. Scout Lea-- for R shoulder Referring Provider: Dr. Sidney Alva-- for gait/balance and leg strengthening Document 09/26/20 08:00 SOHEILA (Rec: 09/26/20 08:57 SOHEILA [id number]) Assessment Status Discharge Subjective Information Brenda reports: shoulder hurts Query Text:As Reported By Patient/ when reaching forward and to Family the side some, point where it grabs and then is OK; still have annoying pain in shoulder during sleeping; able to use R arm for more--reach up into microwave to get something out , cooking; cannot reach bra in back yet and clicking seat belt hurts; have not crashed into anything when walking lately; after sitting too long and go to stand and start walking, cannot walk a straight line; going to see neurologist in about 3 weeks; Pain Assessment Timing of Pain Assessment Timing of Pain Assessment Assessment Pain Scale Pain Scale Used Numeric (1 - 10) Self Report Pain Assessment Right Shoulder(s) Reported Pain Level 0 Pain Frequency Chronic,Intermittent Other Pain Description annoying pain; lateral upper humerus; Lowest Pain Intensity 0 Greatest Pain Intensity 2 Pain Aggravating Factors Exercise/Activity Other Pain Aggravating Factors end of day, when sleeping; Pain Score Pain Score 0: Self Report Interventions Used Interventions Used By Clinicians Education Pain Relief Interventions Used By Ice,Inactivity/Rest Patient Other Alleviating Interventions hand massager Upper Extremity Range of Motion Scapular/ Shoulder Range of Motion Right Shoulder Flexion - Active 125 Shoulder Abduction - Active 110 Lower Extremity Muscle Strength Testing General Lower Extremity Strength Gross Lower Extremity Strength supine SLR with 4# ankle wt:
--- NOTE | 2020-09-26 09:30 | PCPTNOTE ---
pt requested that her PT eval and d/c note about her gait/balance be forwarded to the neurologist that she will be seeing for consult. She signed consent for this and will call with the neurologist name and fax #-- did not have at the time of her PT appt today;
== END 2020-09-28 07:57 | disposition home or self-care (01) ==
LOC: ANHPT 08:00
PROVIDERS: PCP Internal Medicine
DX: Z47.1 Aftercare following joint replacement surgery (principal); Z96.611 Presence of right artificial shoulder joint
CPT/HCPCS: 97014; 97110; 97140; 97161; G0283

== ENCOUNTER 2021-03-07 06:59 | Outpatient (CLI) | payer MEDICARE, SELFPAY ==
[2021-03-07 07:27] LABS: Basophils Absolute Auto 0.1 K/mm3 (0.0-0.1); Eosinophils Absolute Auto 0.3 K/mm3 (0-0.3); Eosinophils Percent Auto 5.4 % (0-4.4); Hematocrit 33.8 % (37.0-47.0); Hemoglobin 11.3 g/dL (12.0-15.0); Immature Granulocyte Absolute 0.04 K/mm3 (0.00-0.031); Immature Granulocyte Percent A 0.7 % (0-0.5); Lymphocytes Absolute Auto 2.63 K/mm3 (0.9-3.2); Mean Corpuscular HGB Conc 33.4 g/dl (32-36); Mean Corpuscular Hemoglobin 36.2 pg (26-34); Mean Corpuscular Volume 108.3 fl (80-100); Mean Platelet Volume 9.5 fl (7.4-10.4); Monocytes Absolute Auto 0.6 K/mm3 (0.1-0.6); Monocytes Percent Auto 9.8 % (2.6-8.5); Neutrophils Percent Auto 35.1 % (45.5-73.1); Nucleated Red Blood Cells Absolute Auto 0.1 K/mm3 (0.0-0.012); Nucleated Red Blood Cells Perc 0.9 % (0.0-0.2); Platelet Count Result 266 k/mm3 (150-375); Red Blood Count 3.12 M/mm3 (4.2-5.4); Red Cell Distribution Width 13.9 % (11.5-14.5); White Blood Count 5.6 K/mm3 (4.5-10.0)
== END 2021-03-07 07:00 | disposition home or self-care (01) ==
PROVIDERS: PCP Internal Medicine; Visit Provider Internal Medicine
DX: D61.818 Other pancytopenia (principal); D53.1 Other megaloblastic anemias, not elsewhere classified
CPT/HCPCS: 36415; 85025

== ENCOUNTER 2021-03-13 07:06 | Outpatient (CLI) | payer MEDICARE, SELFPAY ==
[2021-03-13 10:14] LABS: Iron 178 ug/dL (37-170)
[2021-03-13 10:27] LABS: Percent Iron Saturation 55 % (20-50)
== END 2021-03-13 07:07 | disposition home or self-care (01) ==
PROVIDERS: PCP Internal Medicine; Visit Provider Internal Medicine
DX: D64.9 Anemia, unspecified (principal)
CPT/HCPCS: 36415; 82728; 83540; 83550

== ENCOUNTER 2021-03-20 06:52 | Outpatient (CLI) | payer MEDICARE, SELFPAY ==
[2021-03-20 08:52] LABS: Folic Acid > 20.0 ng/mL (2.76->20); Vitamin B12 > 1000.0 pg/mL (239-931)
== END 2021-03-20 06:53 | disposition home or self-care (01) ==
PROVIDERS: PCP Internal Medicine; Visit Provider Internal Medicine
DX: D64.9 Anemia, unspecified (principal)
CPT/HCPCS: 36415; 82607; 82746

== ENCOUNTER 2021-04-12 12:33 | Outpatient (CLI) | payer MEDICARE, SELFPAY ==
[2021-04-12 13:00] LABS: Basophils Absolute Auto 0.1 K/mm3 (0.0-0.1); Basophils Percent Auto 1.3 % (0.2-1.2); Eosinophils Absolute Auto 0.3 K/mm3 (0-0.3); Eosinophils Percent Auto 3.5 % (0-4.4); Hematocrit 34.8 % (37.0-47.0); Hemoglobin 11.6 g/dL (12.0-15.0); Immature Granulocyte Absolute 0.03 K/mm3 (0.00-0.031); Immature Granulocyte Percent A 0.4 % (0-0.5); Lymphocytes Absolute Auto 2.67 K/mm3 (0.9-3.2); Lymphocytes Percent Auto 37.6 % (18.3-44.2); Mean Corpuscular HGB Conc 33.3 g/dl (32-36); Mean Corpuscular Hemoglobin 35.2 pg (26-34); Mean Corpuscular Volume 105.5 fl (80-100); Mean Platelet Volume 8.9 fl (7.4-10.4); Monocytes Absolute Auto 0.6 K/mm3 (0.1-0.6); Neutrophils Absolute Auto 3.5 K/mm3 (1.3-6.7); Neutrophils Percent Auto 49.2 % (45.5-73.1); Nucleated Red Blood Cells Absolute Auto 0.1 K/mm3 (0.0-0.012); Nucleated Red Blood Cells Perc 0.8 % (0.0-0.2); Platelet Count Result 321 k/mm3 (150-375); Red Cell Distribution Width 13.4 % (11.5-14.5); White Blood Count 7.1 K/mm3 (4.5-10.0)
[2021-04-12 13:09] LABS: Alanine Aminotransferase 22 U/L (4-35); Albumin Level 4.3 g/dL (3.5-5.1); Alkaline Phosphatase 61 U/L (38-126); Anion Gap 6 mmol/L (8-16); Aspartate Amino Transferase 27 U/L (14-36); Bilirubin,Total 0.3 mg/dL (0.2-1.3); Blood Urea Nitrogen 15 mg/dL (7-17); Calcium 9.6 mg/dL (8.4-10.2); Carbon Dioxide 30 mmol/L (22-30); Chloride 105 mmol/L (98-107); Estimated Glomerular Filt Rate > 60; Glucose 128 mg/dL (65-110); Sodium 141 mmol/L (137-145)
[2021-04-12 13:21] LABS: Transferrin 233 mg/dL (206-381)
[2021-04-12 13:33] LABS: Iron 91 ug/dL (37-170)
[2021-04-12 13:44] LABS: Percent Iron Saturation 28 % (20-50)
[2021-04-12 15:05] LABS: Folic Acid > 20.0 ng/mL (2.76->20); Vitamin B12 > 1000.0 pg/mL (239-931)
== END 2021-04-12 12:34 | disposition home or self-care (01) ==
PROVIDERS: PCP Internal Medicine; Visit Provider Internal Medicine Hematology & Oncology
DX: D53.9 Nutritional anemia, unspecified (principal)
CPT/HCPCS: 36415; 80053; 82607; 82728; 82746; 83540; 83550; 84443; 84466; 85025

== ENCOUNTER 2021-06-06 08:54 | Outpatient (CLI) | payer MEDICARE, SELFPAY ==
--- NOTE | ~2021-06-06 | MM_ITS ---
EXAMINATION: MM screening [facility] BI w yancy HISTORY: Screening TECHNIQUE: Craniocaudal and mediolateral oblique 3-D tomosynthesis images were obtained and synthetic 2-D images were generated. CAD analysis was submitted and interpreted. COMPARISON: Comparison to multiple prior studies sequentially, with oldest reviewed study dated 12/28. BREAST PARENCHYMAL COMPOSITION: There are scattered areas of fibroglandular density. FINDINGS: There is no evidence of suspicious mass, calcification, or architectural distortion to sugg est malignancy in either breast. There has been no suspicious interval change. IMPRESSION: 1. No mammographic evidence of malignancy. 2. Recommend routine screening mammography in one year. BI-RADS Category 1: Negative Reviewed, dictated and finalized at location A. E OPENER
== END 2021-06-06 08:55 | disposition home or self-care (01) ==
PROVIDERS: PCP Internal Medicine; Visit Provider Obstetrics & Gynecology
DX: Z12.31 Encounter for screening mammogram for malignant neoplasm of breast (principal)
CPT/HCPCS: 77063; 77067

== ENCOUNTER 2021-08-19 12:55 | Outpatient (CLI) | payer MEDICARE, SELFPAY ==
--- NOTE | ~2021-08-19 | DEXA_ITS ---
Bone Density Report Name: KWAME FUNEZ Age: 81 Sex: Female Ethnicity: White Date of : 1940 Indication: osteopenia; height loss; postmenopausal Referring Provider: MONIE ADAMSON Study: Bone densitometry was performed. 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 These spine BMD and T score and Z score measurements are not reflective of the patient's true general bone mineral density. Bone Density: Region BMD T-score Z-score Classification AP Spine(L1, L3) 1.346 3.0 5.6 Normal Femoral Neck (Left) 0.621 -2.1 0.2 Osteopenia Total Hip (Left) 0.756 -1.5 0.5 Osteopenia World Health Organization criteria for BMD impression classify patients as: Normal (T-score at or above -1.0), Osteopenia (T-score between -1.0 and -2.5), or Osteoporosis (T-score at or below -2.5). 10-year Fracture Risk(1): Major Osteoporotic Fracture 16% Hip Fracture 4.5% Reported Risk Factors: [place] (), Neck BMD=0.621, BMI=28.2 (1) FRAX(R) Version 3.08. Fracture probability calculated for an untreated patient. Fracture probability may be lower if the patient has received treatment. Previous Exams: Region Exam Age BMD T-score BMD Change BMD Change Date g/cm2 vs Baseline vs Previous Total Hip(Left) 08/19/2021 81 0.756 -1.5 -0.116 (-13.3% -0.039 (-4.9%) 03/03/2019 79 0.795 -1.2 -0.078 (-8.9%) -0.078 (-8.9%) 03/16/2017 77 0.873 -0.6 *Denotes significance at 95% confidence level, LSC for Total Hip = 0.027 g/cm2 Clinical Information Provided by Patient: Patient maximum height was 62 Drinks caffeinated beverages Onset of menses at age 15 Number of children 1 Impression: The patient has low bone mass, based on the Left Femoral Neck T-score. The patient has an estimated ten-year risk of hip fracture of 4.5% and an estimated ten-year risk of major fracture of 16%, based on the WHO FRAX algorithm. The BMD for the Total Hip(Left) decreased, changing by -4.9% since the last DXA exam. 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 These spine BMD and T score and Z score measurements are not reflective of the patient's true general bone mineral density. Discussion: BONE DENSITY IS LOW AT ONE OR MORE SKELETAL SITES. THE PATIENT'S BMD AND CLINICAL RISK FACTORS CONTRIBUTE TO THIS PATIENT'S INCREASED RISK OF FRACTURE. This patient's
== END 2021-08-19 12:56 | disposition home or self-care (01) ==
PROVIDERS: PCP Internal Medicine; Visit Provider Obstetrics & Gynecology
DX: Z78.0 Asymptomatic menopausal state (principal); M85.852 Other specified disorders of bone density and structure, left thigh
CPT/HCPCS: 77080

== ENCOUNTER 2021-09-03 07:04 | Outpatient (CLI) | payer MEDICARE, SELFPAY ==
[2021-09-03 07:50] LABS: Basophils Absolute Auto 0.1 K/mm3 (0.0-0.1); Basophils Percent Auto 1.7 % (0.2-1.2); Eosinophils Absolute Auto 0.2 K/mm3 (0-0.3); Eosinophils Percent Auto 3.4 % (0-4.4); Hematocrit 34.9 % (37.0-47.0); Hemoglobin 11.8 g/dL (12.0-15.0); Immature Granulocyte Absolute 0.03 K/mm3 (0.00-0.031); Immature Granulocyte Percent A 0.5 % (0-0.5); Lymphocytes Absolute Auto 2.28 K/mm3 (0.9-3.2); Lymphocytes Percent Auto 38.9 % (18.3-44.2); Mean Corpuscular HGB Conc 33.8 g/dl (32-36); Mean Corpuscular Hemoglobin 35.1 pg (26-34); Mean Corpuscular Volume 103.9 fl (80-100); Mean Platelet Volume 9.6 fl (7.4-10.4); Monocytes Absolute Auto 0.7 K/mm3 (0.1-0.6); Monocytes Percent Auto 11.4 % (2.6-8.5); Neutrophils Absolute Auto 2.6 K/mm3 (1.3-6.7); Neutrophils Percent Auto 44.1 % (45.5-73.1); Nucleated Red Blood Cells Perc 0.7 % (0.0-0.2); Platelet Count Result 299 k/mm3 (150-375); Red Blood Count 3.36 M/mm3 (4.2-5.4); Red Cell Distribution Width 14.7 % (11.5-14.5); White Blood Count 5.9 K/mm3 (4.5-10.0)
[2021-09-03 08:05] LABS: Anion Gap 3 mmol/L (8-16); Blood Urea Nitrogen 12 mg/dL (7-17); Calcium 9.3 mg/dL (8.4-10.2); Carbon Dioxide 30 mmol/L (22-30); Chloride 107 mmol/L (98-107); Cholesterol 162 mg/dL (0-200); Estimated Glomerular Filt Rate > 60; Glucose 88 mg/dL (65-110); HDL Direct 55 mg/dL; Potassium 4.1 mmol/L (3.4-5.0); Sodium 140 mmol/L (137-145); Triglycerides 73 mg/dL (<150)
[2021-09-03 08:06] LABS: Hemoglobin A1C 5.5 % (<5.7)
[2021-09-03 08:15] LABS: LDL Cholesterol Direct 80 mg/dL
[2021-09-03 09:18] LABS: Creatinine Urine 42.2 mg/dL
[2021-09-03 09:45] LABS: MALB Creatinine Ratio < 14.2 mg/g (0-30); Microalbumin Urine Random < 6.0 mg/L (0-16.7)
== END 2021-09-03 07:05 | disposition home or self-care (01) ==
LOC: ANHLAB 07:06
PROVIDERS: PCP Internal Medicine; Visit Provider Internal Medicine
DX: D64.9 Anemia, unspecified (principal); E55.9 Vitamin D deficiency, unspecified; R73.01 Impaired fasting glucose; E78.2 Mixed hyperlipidemia
CPT/HCPCS: 36415; 80048; 80061; 82043; 82306; 83036; 85025

== ENCOUNTER 2022-03-12 06:54 | Outpatient (CLI) | payer MEDICARE, SELFPAY ==
[2022-03-12 07:34] LABS: Basophils Absolute Auto 0.1 K/mm3 (0.0-0.1); Basophils Percent Auto 1.7 % (0.2-1.2); Eosinophils Absolute Auto 0.2 K/mm3 (0-0.3); Eosinophils Percent Auto 3.6 % (0-4.4); Hematocrit 36.3 % (37.0-47.0); Hemoglobin 12.1 g/dL (12.0-15.0); Immature Granulocyte Absolute 0.04 K/mm3 (0.00-0.031); Immature Granulocyte Percent A 0.7 % (0-0.5); Lymphocytes Percent Auto 39.8 % (18.3-44.2); Mean Corpuscular HGB Conc 33.3 g/dl (32-36); Mean Corpuscular Hemoglobin 35.2 pg (26-34); Mean Corpuscular Volume 105.5 fl (80-100); Mean Platelet Volume 9.5 fl (7.4-10.4); Monocytes Absolute Auto 0.6 K/mm3 (0.1-0.6); Neutrophils Absolute Auto 2.7 K/mm3 (1.3-6.7); Neutrophils Percent Auto 44.2 % (45.5-73.1); Nucleated Red Blood Cells Absolute Auto 0.1 K/mm3 (0.0-0.012); Nucleated Red Blood Cells Perc 0.8 % (0.0-0.2); Platelet Count Result 329 k/mm3 (150-375); Red Blood Count 3.44 M/mm3 (4.2-5.4); Red Cell Distribution Width 14.6 % (11.5-14.5)
[2022-03-12 07:43] LABS: Alanine Aminotransferase 27 U/L (6-35); Albumin Level 4.4 g/dL (3.5-5.1); Alkaline Phosphatase 64 U/L (38-126); Anion Gap 6 mmol/L (8-16); Aspartate Amino Transferase 28 U/L (14-36); Bilirubin,Total 0.7 mg/dL (0.2-1.3); Blood Urea Nitrogen 17 mg/dL (7-17); Calcium 9.3 mg/dL (8.4-10.2); Carbon Dioxide 28 mmol/L (22-30); Chloride 107 mmol/L (98-107); Cholesterol 174 mg/dL (0-200); Estimated Glomerular Filt Rate > 60; Glucose 104 mg/dL (65-110); HDL Direct 56 mg/dL; Potassium 4.1 mmol/L (3.4-5.0); Sodium 141 mmol/L (137-145); Triglycerides 64 mg/dL (<150)
[2022-03-12 07:54] LABS: LDL Cholesterol Direct 87 mg/dL
[2022-03-12 08:18] LABS: Hemoglobin A1C 5.7 % (<5.7)
[2022-03-12 08:50] LABS: Folic Acid > 20.0 ng/mL (2.76->20)
[2022-03-12 08:58] LABS: Iron 180 ug/dL (37-170)
[2022-03-12 09:08] LABS: Percent Iron Saturation 51 % (20-50)
[2022-03-16] LABS: Vitamin D 1,25 (OH)2 Total 55 pg/mL (18-72); Vitamin D2 1,25 (OH)2 <8 pg/mL; Vitamin D3 1,25 (OH)2 55 pg/mL
== END 2022-03-12 06:55 | disposition home or self-care (01) ==
LOC: ANHLAB 06:57
PROVIDERS: PCP Family Medicine; Visit Provider Family Medicine
DX: D64.9 Anemia, unspecified (principal); E78.2 Mixed hyperlipidemia; E55.9 Vitamin D deficiency, unspecified; R73.01 Impaired fasting glucose
CPT/HCPCS: 36415; 80048; 80061; 80076; 82607; 82652; 82728; 82746; 83036; 83540; 83550; 84443; 85025

== ENCOUNTER 2022-04-18 06:50 | Outpatient (CLI) | payer MEDICARE, SELFPAY ==
[2022-04-18 07:47] LABS: Basophils Absolute Auto 0.1 K/mm3 (0.0-0.1); Basophils Percent Auto 1.5 % (0.2-1.2); Eosinophils Absolute Auto 0.2 K/mm3 (0-0.3); Eosinophils Percent Auto 3.3 % (0-4.4); Hematocrit 36.1 % (37.0-47.0); Hemoglobin 11.9 g/dL (12.0-15.0); Immature Granulocyte Absolute 0.03 K/mm3 (0.00-0.031); Immature Granulocyte Percent A 0.5 % (0-0.5); Lymphocytes Absolute Auto 2.39 K/mm3 (0.9-3.2); Lymphocytes Percent Auto 43.4 % (18.3-44.2); Mean Corpuscular Hemoglobin 35.4 pg (26-34); Mean Corpuscular Volume 107.4 fl (80-100); Mean Platelet Volume 9.4 fl (7.4-10.4); Monocytes Absolute Auto 0.6 K/mm3 (0.1-0.6); Monocytes Percent Auto 11.1 % (2.6-8.5); Neutrophils Absolute Auto 2.2 K/mm3 (1.3-6.7); Neutrophils Percent Auto 40.2 % (45.5-73.1); Nucleated Red Blood Cells Perc 0.5 % (0.0-0.2); Platelet Count Result 316 k/mm3 (150-375); Red Blood Count 3.36 M/mm3 (4.2-5.4); Red Cell Distribution Width 14.6 % (11.5-14.5); White Blood Count 5.5 K/mm3 (4.5-10.0)
[2022-04-18 08:00] LABS: Alanine Aminotransferase 23 U/L (6-35); Albumin Level 4.2 g/dL (3.5-5.1); Alkaline Phosphatase 55 U/L (38-126); Anion Gap 3 mmol/L (8-16); Aspartate Amino Transferase 26 U/L (14-36); Bilirubin,Total 0.6 mg/dL (0.2-1.3); Blood Urea Nitrogen 14 mg/dL (7-17); Calcium 9.2 mg/dL (8.4-10.2); Carbon Dioxide 30 mmol/L (22-30); Chloride 104 mmol/L (98-107); Estimated Glomerular Filt Rate > 60; Glucose 103 mg/dL (65-110); Potassium 4.1 mmol/L (3.4-5.0); Sodium 137 mmol/L (137-145)
== END 2022-04-18 06:51 | disposition home or self-care (01) ==
PROVIDERS: PCP Family Medicine; Visit Provider Internal Medicine Hematology & Oncology
DX: D53.9 Nutritional anemia, unspecified (principal)
CPT/HCPCS: 36415; 80053; 85025

== ENCOUNTER 2022-08-11 09:50 | Outpatient (CLI) | payer MEDICARE, SELFPAY ==
--- NOTE | ~2022-08-11 | MM_ITS ---
EXAMINATION: MM screening [facility] BI w yancy HISTORY: Screening mammogram TECHNIQUE: Craniocaudal and mediolateral oblique 3-D tomosynthesis images were obtained and synthetic 2-D images were generated. CAD analysis was submitted and interpreted. COMPARISON: 06/06/2021, 04/17/2020, 03/03/2019 BREAST PARENCHYMAL COMPOSITION: There are scattered areas of fibroglandular density. FINDINGS: No suspicious mass, calcification, or architectural distortion are identified in either josselin ast to suggest malignancy. There has been no suspicious interval change. IMPRESSION: 1. No mammographic evidence of malignancy. 2. Recommend routine screening mammography while the patient remains in good health. BI-RADS Category 1: Negative Reviewed, dictated and finalized at location A. IMPRESSION: 1. No mammographic evidence of malignancy. 2. Recommend routine screening mammography while the patient remains in good he alth. BI-RADS Category 1: Negative
== END 2022-08-11 09:51 | disposition home or self-care (01) ==
LOC: ANHIMG 09:53
PROVIDERS: PCP Family Medicine; Visit Provider Obstetrics & Gynecology
DX: Z12.31 Encounter for screening mammogram for malignant neoplasm of breast (principal)
CPT/HCPCS: 77063; 77067

== ENCOUNTER 2022-09-05 06:40 | Outpatient (CLI) | payer MEDICARE, SELFPAY ==
[2022-09-05 07:23] LABS: Basophils Absolute Auto 0.1 K/mm3 (0.0-0.1); Basophils Percent Auto 2.2 % (0.2-1.2); Eosinophils Absolute Auto 0.2 K/mm3 (0-0.3); Hemoglobin 11.4 g/dL (12.0-15.0); Immature Granulocyte Absolute 0.03 K/mm3 (0.00-0.031); Immature Granulocyte Percent A 0.6 % (0-0.5); Lymphocytes Percent Auto 34.3 % (18.3-44.2); Mean Corpuscular HGB Conc 32.6 g/dl (32-36); Mean Corpuscular Hemoglobin 34.8 pg (26-34); Mean Corpuscular Volume 106.7 fl (80-100); Mean Platelet Volume 9.6 fl (7.4-10.4); Monocytes Absolute Auto 0.5 K/mm3 (0.1-0.6); Monocytes Percent Auto 10.3 % (2.6-8.5); Neutrophils Absolute Auto 2.5 K/mm3 (1.3-6.7); Neutrophils Percent Auto 49.6 % (45.5-73.1); Nucleated Red Blood Cells Absolute Auto 0.1 K/mm3 (0.0-0.012); Platelet Count Result 323 k/mm3 (150-375); Red Blood Count 3.28 M/mm3 (4.2-5.4); Red Cell Distribution Width 14.9 % (11.5-14.5)
[2022-09-05 07:38] LABS: Alanine Aminotransferase 23 U/L (6-35); Albumin Level 4.3 g/dL (3.5-5.1); Alkaline Phosphatase 60 U/L (38-126); Anion Gap 5 mmol/L (8-16); Aspartate Amino Transferase 27 U/L (14-36); Bilirubin,Total 0.8 mg/dL (0.2-1.3); Blood Urea Nitrogen 12 mg/dL (7-17); Carbon Dioxide 30 mmol/L (22-30); Chloride 103 mmol/L (98-107); Cholesterol 146 mg/dL (0-200); Estimated Glomerular Filt Rate > 60; Glucose 99 mg/dL (65-110); HDL Direct 51 mg/dL; Sodium 138 mmol/L (137-145); Triglycerides 68 mg/dL (<150)
[2022-09-05 07:45] LABS: Iron 159 ug/dL (37-170)
[2022-09-05 07:49] LABS: LDL Cholesterol Direct 77 mg/dL
[2022-09-05 07:55] LABS: Percent Iron Saturation 50 % (20-50)
[2022-09-05 08:52] LABS: Folic Acid > 20.0 ng/mL (2.76->20)
== END 2022-09-05 06:41 | disposition home or self-care (01) ==
PROVIDERS: PCP Family Medicine; Visit Provider Nurse Practitioner Family
DX: D64.9 Anemia, unspecified (principal); E78.2 Mixed hyperlipidemia; R73.01 Impaired fasting glucose
CPT/HCPCS: 36415; 80048; 80061; 80076; 82607; 82728; 82746; 83540; 83550; 85025

== ENCOUNTER 2023-03-04 11:32 | Outpatient (CLI) | payer MEDICARE, SELFPAY ==
--- NOTE | ~2023-03-04 | XR_ITS ---
AP view of the pelvis and AP and lateral views of the left hip Clinical history: Pain Findings: No acute fracture or dislocation is seen. Osseous alignment is anatomic. Right hip arthropl asty in place. There is mild degenerative change of the left hip joint. 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 Soft tissues are unremarkable. Impression: Mild degenerative change of the left hip joint. Right hip arthroplasty. Reviewed, dictated and finalized at location M. AT ENGINEER Impression: Mild degenerative change of the left hip joint. Right hip arthroplasty.
== END 2023-03-04 11:33 | disposition home or self-care (01) ==
PROVIDERS: PCP Family Medicine; Visit Provider Orthopaedic Surgery
DX: M25.552 Pain in left hip (principal)
CPT/HCPCS: 73502

== ENCOUNTER 2023-03-12 14:19 | Outpatient (CLI) | payer MEDICARE, SELFPAY ==
[2023-03-12 15:00] LABS: Appearance Urine Cloudy (Clear); Bilirubin Urine Negative (Negative); Blood Urine 1+ (Negative); Color Urine Yellow (Yellow); Glucose Urine UA Negative (Negative); Ketones Urine Negative (Negative); Leukocyte Esterase Ur 2+ LEU/UL (Negative); Nitrate Urine Negative (Negative); Protein Urine Trace mg/dL (Negative); Specific Grav Ur 1.021 (1.001-1.035); Squamous Epithelial Cell Urine None seen /hpf (Few); WBC Urine >100 /hpf
[2023-03-12 15:01] LABS: Bacteria Urine 4+ /hpf; Non Pathogenic Casts 0-2
[2023-03-12 15:21] LABS: Add Urine Microscopic? YES
== END 2023-03-12 14:20 | disposition home or self-care (01) ==
LOC: ANHLAB 14:22
PROVIDERS: PCP Family Medicine; Visit Provider Nurse Practitioner Family
DX: R30.0 Dysuria (principal)
CPT/HCPCS: 81001; 87077; 87086; 87186

== ENCOUNTER 2023-04-15 07:43 | Outpatient (CLI) | payer MEDICARE, SELFPAY ==
[2023-04-15 08:09] LABS: Basophils Absolute Auto 0.1 K/mm3 (0.0-0.1); Basophils Percent Auto 1.7 % (0.2-1.2); Eosinophils Absolute Auto 0.2 K/mm3 (0-0.3); Eosinophils Percent Auto 3.3 % (0-4.4); Hematocrit 35.3 % (37.0-47.0); Hemoglobin 11.3 g/dL (12.0-15.0); Immature Granulocyte Absolute 0.06 K/mm3 (0.00-0.031); Lymphocytes Absolute Auto 2.22 K/mm3 (0.9-3.2); Lymphocytes Percent Auto 38.2 % (18.3-44.2); Mean Corpuscular Hemoglobin 34.2 pg (26-34); Monocytes Absolute Auto 0.6 K/mm3 (0.1-0.6); Monocytes Percent Auto 10.7 % (2.6-8.5); Neutrophils Absolute Auto 2.6 K/mm3 (1.3-6.7); Neutrophils Percent Auto 45.1 % (45.5-73.1); Nucleated Red Blood Cells Absolute Auto 0.1 K/mm3 (0.0-0.012); Nucleated Red Blood Cells Perc 1.9 % (0.0-0.2); Platelet Count Result 410 k/mm3 (150-375); Red Cell Distribution Width 14.4 % (11.5-14.5); White Blood Count 5.8 K/mm3 (4.5-10.0)
[2023-04-15 08:26] LABS: Alanine Aminotransferase 29 U/L (6-35); Albumin Level 3.9 g/dL (3.5-5.1); Alkaline Phosphatase 56 U/L (38-126); Anion Gap 8 mmol/L (8-16); Aspartate Amino Transferase 32 U/L (14-36); Bilirubin,Total 0.4 mg/dL (0.2-1.3); Blood Urea Nitrogen 15 mg/dL (7-17); Calcium 9.6 mg/dL (8.4-10.2); Carbon Dioxide 28 mmol/L (22-30); Chloride 103 mmol/L (98-107); Estimated Glomerular Filt Rate > 60; Glucose 103 mg/dL (65-110); Potassium 4.5 mmol/L (3.4-5.0); Sodium 139 mmol/L (137-145)
[2023-04-15 08:32] LABS: Macrocytosis 1+ (NORMAL); Platelet Estimate Adequate (Adequate); Schistocytes None Seen (NORMAL)
== END 2023-04-15 07:44 | disposition home or self-care (01) ==
LOC: ANHLAB 07:46
PROVIDERS: PCP Family Medicine; Visit Provider Internal Medicine Hematology & Oncology
DX: D53.9 Nutritional anemia, unspecified (principal)
CPT/HCPCS: 36415; 80053; 85025

== ENCOUNTER 2023-06-03 12:55 | Outpatient (CLI) | payer MEDICARE, SELFPAY | END 2023-06-03 12:56 | disposition home or self-care (01) | LOC: ANHAUDASC 12:57 | PROVIDERS: PCP Family Medicine; Visit Provider Otolaryngology | DX: H90.3 Sensorineural hearing loss, bilateral (principal) | CPT/HCPCS: 92557; 92567 ==

== ENCOUNTER 2023-07-13 15:00 | Outpatient (RCR) | payer MEDICARE, SELFPAY | END 2023-09-13 23:59 | disposition home or self-care (01) | LOC: ANHAUDASC 15:00 | PROVIDERS: PCP Family Medicine; Visit Provider Otolaryngology | DX: Z46.1 Encounter for fitting and adjustment of hearing aid (principal) | CPT/HCPCS: 99199; V5261 ==

== ENCOUNTER 2023-08-12 13:55 | Outpatient (CLI) | payer MEDICARE, SELFPAY ==
[2023-08-12 15:42] LABS: Basophils Absolute Auto 0.1 K/mm3 (0.0-0.1); Basophils Percent Auto 1.4 % (0.2-1.2); Eosinophils Absolute Auto 0.3 K/mm3 (0-0.3); Eosinophils Percent Auto 3.8 % (0-4.4); Hematocrit 33.9 % (37.0-47.0); Hemoglobin 11.1 g/dL (12.0-15.0); Immature Granulocyte Absolute 0.04 K/mm3 (0.00-0.031); Immature Granulocyte Percent A 0.5 % (0-0.5); Lymphocytes Absolute Auto 3.06 K/mm3 (0.9-3.2); Lymphocytes Percent Auto 39.7 % (18.3-44.2); Mean Corpuscular HGB Conc 32.7 g/dl (32-36); Mean Corpuscular Hemoglobin 35.5 pg (26-34); Mean Corpuscular Volume 108.3 fl (80-100); Mean Platelet Volume 9.4 fl (7.4-10.4); Monocytes Absolute Auto 0.7 K/mm3 (0.1-0.6); Monocytes Percent Auto 9.5 % (2.6-8.5); Neutrophils Absolute Auto 3.5 K/mm3 (1.3-6.7); Neutrophils Percent Auto 45.1 % (45.5-73.1); Platelet Count Result 330 k/mm3 (150-375); Red Blood Count 3.13 M/mm3 (4.2-5.4); Red Cell Distribution Width 15.3 % (11.5-14.5); White Blood Count 7.7 K/mm3 (4.5-10.0)
[2023-08-12 15:54] LABS: Albumin Level 4.2 g/dL (3.5-5.1); Anion Gap 4 mmol/L (4-12); Blood Urea Nitrogen 19 mg/dL (7-17); Calcium 9.8 mg/dL (8.4-10.2); Carbon Dioxide 29 mmol/L (22-30); Chloride 107 mmol/L (98-107); Estimated Glomerular Filt Rate > 60; Glucose 106 mg/dL (65-110); Potassium 3.7 mmol/L (3.4-5.0); Sodium 140 mmol/L (137-145)
[2023-08-12 16:08] LABS: Anisocytosis 1+; Macrocytosis 1+ (NORMAL); Platelet Estimate Adequate (Adequate); Schistocytes None Seen
[2023-08-12 17:47] LABS: Urine Cotinine NEGATIVE
[2023-08-12 18:17] LABS: Hemoglobin A1C 5.5 % (<5.7)
== END 2023-08-12 13:56 | disposition home or self-care (01) ==
LOC: ANHSURGERY 14:01
PROVIDERS: PCP Family Medicine; Visit Provider Orthopaedic Surgery
DX: M16.12 Unilateral primary osteoarthritis, left hip (principal); Z01.818 Encounter for other preprocedural examination
CPT/HCPCS: 80048; 80307; 82040; 83036; 85025; 87081

== ENCOUNTER 2023-08-27 15:22 | Outpatient (CLI) | payer MEDICARE, SELFPAY ==
--- NOTE | ~2023-08-27 | MM_ITS ---
EXAMINATION: MM screening [facility] BI w yancy HISTORY: Screening TECHNIQUE: Craniocaudal and mediolateral oblique 3-D tomosynthesis images were obtained and synthetic 2-D images were generated. CAD analysis was submitted and interpreted. COMPARISON: Comparison to multiple prior studies sequentially, with oldest reviewed study dated 01/29. BREAST PARENCHYMAL COMPOSITION: Not dense: There are scattered areas of fibroglandular density. FINDINGS: There is no evidence of suspicious mass, calcification, or architectural distortion to sugg est malignancy in either breast. There has been no suspicious interval change. IMPRESSION: 1. No mammographic evidence of malignancy. 2. Recommend routine screening mammography in one year. BI-RADS Category 1: Negative Reviewed, dictated and finalized at location B.
== END 2023-08-27 15:23 | disposition home or self-care (01) ==
PROVIDERS: PCP Family Medicine; Visit Provider Obstetrics & Gynecology
DX: Z12.31 Encounter for screening mammogram for malignant neoplasm of breast (principal)
CPT/HCPCS: 77063; 77067

== ENCOUNTER 2023-08-28 10:29 | Outpatient (CLI) | payer MEDICARE, SELFPAY ==
[2023-08-28 10:47] LABS: Hematocrit 31.7 % (37.0-47.0); Hemoglobin 10.4 g/dL (12.0-15.0); Mean Corpuscular HGB Conc 32.8 g/dl (32-36); Mean Corpuscular Hemoglobin 35.1 pg (26-34); Mean Corpuscular Volume 107.1 fl (80-100); Mean Platelet Volume 9.1 fl (7.4-10.4); Platelet Count Result 335 k/mm3 (150-375); Red Blood Count 2.96 M/mm3 (4.2-5.4); White Blood Count 6.8 K/mm3 (4.5-10.0)
[2023-08-28 10:57] LABS: Band Neutrophils Percent 9 % (0-6); Eosinophils Absolute Manual 0.06 K/mm3 (0.02-0.50); Eosinophils Percent Manual 1 % (0-4); Lymphocytes Absolute Manual 3.12 K/mm3 (1.1-4.5); Monocytes Absolute Manual 0.74 K/mm3 (0.1-0.90); Monocytes Percent Manual 11 % (3-9); Neutrophils Absolute Manual 2.85 K/mm3 (1.7-7.2); Neutrophils Percent Manual 33 % (46-73); Nucleated Red Blood Cells 2 %; Total Cells Counted 100
[2023-08-28 10:58] LABS: Anisocytosis 1+; Giant Platelets Present; Macrocytosis 1+ (NORMAL); Platelet Estimate Adequate (Adequate); Schistocytes None Seen
== END 2023-08-28 10:30 | disposition home or self-care (01) ==
PROVIDERS: PCP Family Medicine; Visit Provider Internal Medicine Hematology & Oncology
DX: D64.9 Anemia, unspecified (principal)
CPT/HCPCS: 36415; 85025

== ENCOUNTER 2023-09-01 08:30 | Outpatient (CLI) | payer MEDICARE, SELFPAY ==
[2023-09-01 09:15] LABS: Basophils Absolute Auto 0.1 K/mm3 (0.0-0.1); Basophils Percent Auto 1.8 % (0.2-1.2); Eosinophils Absolute Auto 0.2 K/mm3 (0-0.3); Eosinophils Percent Auto 3.3 % (0-4.4); Hematocrit 31.9 % (37.0-47.0); Hemoglobin 10.8 g/dL (12.0-15.0); Immature Granulocyte Absolute 0.03 K/mm3 (0.00-0.031); Immature Granulocyte Percent A 0.5 % (0-0.5); Lymphocytes Absolute Auto 2.28 K/mm3 (0.9-3.2); Lymphocytes Percent Auto 41.4 % (18.3-44.2); Mean Corpuscular HGB Conc 33.9 g/dl (32-36); Mean Corpuscular Hemoglobin 35.9 pg (26-34); Mean Platelet Volume 9.6 fl (7.4-10.4); Monocytes Absolute Auto 0.7 K/mm3 (0.1-0.6); Monocytes Percent Auto 12.3 % (2.6-8.5); Neutrophils Absolute Auto 2.2 K/mm3 (1.3-6.7); Neutrophils Percent Auto 40.7 % (45.5-73.1); Nucleated Red Blood Cells Perc 1.3 % (0.0-0.2); Platelet Count Result 338 k/mm3 (150-375); Red Blood Count 3.01 M/mm3 (4.2-5.4); Red Cell Distribution Width 15.1 % (11.5-14.5); White Blood Count 5.5 K/mm3 (4.5-10.0)
== END 2023-09-01 08:31 | disposition home or self-care (01) ==
LOC: ANHLAB 08:32
PROVIDERS: PCP Family Medicine; Visit Provider Internal Medicine Hematology & Oncology
DX: D64.9 Anemia, unspecified (principal)
CPT/HCPCS: 36415; 85025

== ENCOUNTER 2023-09-04 01:49 | Day surgery (SDC) | payer MEDICARE, SELFPAY ==
[2023-08-12 14:06] VITALS: BMI 28.3
[2023-08-12 14:34] VITALS: BP 123/57; PULSE 80; RESP 18; TEMP 37; O2SAT 97
--- NOTE | 2023-08-12 14:36 | PC.NURSE ---
Report to the Outpatient Waiting Room, entrance under the green pavilion located off [facility], at time __6:00 AM on date __09/01/23 . Planned Procedure Time: __7:30 AM . Time changes happen often and if your time is changed the preop area will call you the afternoon before. - You and your visitor will be asked to self-screen and do not enter if you have any COVID symptoms. - A mask is optional within the hospital at this time. Patients may have clear liquids (water, carbonated beverages, clear teas, apple juice) until 3 hours prior to surgery( 4:30 AM) with a maximum of 20 ounces. - No food from midnight until time of surgery - Infants may have breast milk until 4 hours before surgery, infant formula 6 hours prior to surgery. - Children will be allowed to drink immediately following surgery. If applicable, please bring a bottle or sippy cup to assist with drinking. Juice, water, soda, and popsicles are readily available. For infants on formula, please bring formula the day of surgery. Pacifiers are allowed. Take the following medications with a SIP of water the morning of surgery: ___NONE DO NOT STOP ANY OF YOUR OTHER PRESCRIPTION MEDICATIONS PRIOR TO SURGERY ?EXCEPT THE FOLLOWING Medications to discontinue per physician ___HOLD VITAMINS AND SUPPLEMENTS 3 DAYS PRE OP .LAST DOSE 08/28/23 Please no make-up, nail kazakh, hairspray, perfume, deodorant, or body powder the day of surgery. No jewelry (including any body piercings) or valuables the day of surgery, leave them at home. Please take a shower or bath the night before, or the morning of, surgery with an antibacterial soap. Wear comfortable, loose fitting clothing. Children are encouraged to wear pajamas. - Jewelry must be removed prior to entering the operating room. Rings and piercings that are not removed may be cut off. - The hospital will not accept responsibility for valuables. - Please leave all valuables, including medications, at home the day of surgery. If you are going home after surgery, a licensed dump truck driver must drive you home. - NO public transportation without another adult if you receive anesthesia. - We recommend that an adult stay with you for 24 hours following discharge. - We also recommend that you do not drive, make important decision, drink alcoholic beverages, or take any drugs that were not prescribed by your health care provider for at least 24 hours after your discharge time. Follow any additional instructions given to you from your surgeon. If you or anyone in your household have experienced Covid symptoms in the past week, please notify your surgeon or the nurse liaison at the phone number below for possible testing. VERBAL AND WRITTEN instructions given to __PATIENT and asked if any additional questions and then verbalized understanding. Patient advised to call surgeon office or pre surgery nurse liaison [phone] if any additional questions.
--- NOTE | 2023-09-01 12:47 | PC.NURSE ---
Report to the Outpatient Waiting Room, entrance under the green pavilion located off [facility], at time ____1000___ on date __09/04/23 . Planned Procedure Time: ___1200 . Time changes happen often and if your time is changed the preop area will call you the afternoon before. - You and your visitor will be asked to self-screen and do not enter if you have any COVID symptoms. - A mask is optional within the hospital at this time. Patients may have clear liquids (water, carbonated beverages, clear teas, apple juice) until 3 hours prior to surgery (0900 AM) with a maximum of 20 ounces. - No food from midnight until time of surgery - Infants may have breast milk until 4 hours before surgery, infant formula 6 hours prior to surgery. - Children will be allowed to drink immediately following surgery. If applicable, please bring a bottle or sippy cup to assist with drinking. Juice, water, soda, and popsicles are readily available. For infants on formula, please bring formula the day of surgery. Pacifiers are allowed. Take the following medications with a SIP of water the morning of surgery: NONE DO NOT STOP ANY OF YOUR OTHER PRESCRIPTION MEDICATIONS PRIOR TO SURGERY ?EXCEPT THE FOLLOWING Medications to discontinue per ANESTHESIA - _VITAMINS/SUPPLEMENTS - PT STATES LAST DOSE 08/28/23 & HAS NOT STARTED THEM BACK UP Date to take last dose Please no make-up, nail namibian, hairspray, perfume, deodorant, or body powder the day of surgery. No jewelry (including any body piercings) or valuables the day of surgery, leave them at home. Please take a shower or bath the night before, or the morning of, surgery with an antibacterial soap. Wear comfortable, loose fitting clothing. Children are encouraged to wear pajamas. - Jewelry must be removed prior to entering the operating room. Rings and piercings that are not removed may be cut off. - The hospital will not accept responsibility for valuables. - Please leave all valuables, including medications, at home the day of surgery. If you are going home after surgery, a licensed rear load truck driver must drive you home. - NO public transportation without another adult if you receive anesthesia. - We recommend that an adult stay with you for 24 hours following discharge. - We also recommend that you do not drive, make important decision, drink alcoholic beverages, or take any drugs that were not prescribed by your health care provider for at least 24 hours after your discharge time. For Pediatric surgeries, we recommend two adults accompany the child home. Follow any additional instructions given to you from your surgeon. If you or anyone in your household have experienced Covid symptoms in the past week, please notify your surgeon or the nurse liaison at the phone number below for possible testing. Telephone instructions given to __PT and asked if any additional questions and then verbalized understanding. Patient advised to call surgeon office or pre surgery nurse liaison [phone] if any additional questions.
--- NOTE | 2023-09-01 12:49 | PC.NURSE ---
PT CONTACTED STATES NO CHANGE IN HEALTH HX/MEDICATIONS - NEW DATE/TIME OF SURGERY GIVEN, UNDERSTANDING VOICED
--- NOTE | 2023-09-02 08:53 | PM.IMHP ---
H&P: HPI History of Present Illness Date/Time: 09/02/23 08:53 Chief Complaint: Left hip DJD Narrative: 83-year-old female presents a for left anterior total hip arthroplasty. She has been having progressively worsening symptoms in her left hip. 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 She is having symptoms on a regular basis. She has been using a cane full-time for over 6 months due to the pain in the hip. She avoids anti-inflammatories because she states she is any easy bleeder. She has had her right hip replaced in the past and it is doing well she has also had both of her knees replaced in the past. She is a very active 83-year-old and feels that she would like to proceed with total hip arthroplasty on the left at this point. Review of Systems Review of Systems: All systems reviewed & are unremarkable except as noted in HPI and below PMFSH Past Medical History Medical History (Updated 08/27/23 @ 17:24 by Gordo Huntley MD) Acquired hallux valgus of left foot Anemia Arthritis of left hip Arthritis of left shoulder region Arthritis of right shoulder region Arthritis, lumbar spine At moderate risk for fall BMI 26.0-26.9,adult BMI 27.0-27.9,adult Carpal tunnel syndrome Cataract Chronic low back pain with right-sided sciatica Colon cancer screening colonoscopy with Dr. Perez on 05/29/2016 unremarkable except for diverticulosis. Cyst of ear canal Dyslipidemia Dysuria Ear canal mass Ear itching Ear itching Elevated cholesterol Elevated fasting glucose glucose 99 with hemoglobin A1c 5.7. Fasting glucose 103 on 04/15/2023. nonfasting glucose 106 with hemoglobin A1c 5.5 on 08/12/2023. GERD (gastroesophageal reflux disease) Hallux valgus (acquired), right foot Headache, migraine Hearing loss Lower back pain Lymphocytosis Mixed hyperlipidemia Total cholesterol 174, triglycerides 64, HDL 56, LDL 87 on 03/12/2022. VINICIUS (obstructive sleep apnea) Osteopenia after menopause DEXA bone density study on 08/19/2021 with T-score normal at the spine at 1.346 with -2.1 at the left hip with osteopenia Osteoporosis Other specified personal risk factors, not elsewhere classified Overweight (BMI 25.0-29.9) (~02/09/23) Peripheral neuropathy history of peripheral neuropathy in the feet causing problems with balance Post-menopause Prediabetes Primary osteoarthritis involving multiple joints Right hip pain Screening mammogram, encounter for normal mammogram 08/11/2022. normal mammogram 08/27/2023. Sleep apnea Trigger finger, right ring finger UTI (urinary tract infection) Vaccine counseling Surgical History Surgical History H/O arthroscopy of knee H/O carpal tunnel repair H/O cataract extraction H/O lumpectomy History of section History of hip replacement Right hip 2018 History of knee replacement 2017 & 2016 History of shoulder replacement reverse right shoulder 2020 Dr. Lea Family History Family History Mother Acute myocardial infarction, Onset Age: 62 Cancer Other Alcoholism Arthritis CHF (congestive heart failure), NYHA class I Family history of malignant neoplasm of breast Hearing loss Heart disease Hypertension Ulcer Social History Social History (Updated 07/01/23 @ 14:42 by Brit Devlin [facility]) Smoking packs per day: 1 Smoking cigarettes per day: 20.0 Years smoked: 18 Smoking pack-years: 18.00 Smoking status: Former smoker Tobacco type: cigarettes Second hand tobacco smoke exposure: No Smoking end date: 03/30/81 Additional smoking assessment comments: DENIES ANY FORM OF TOBACCO USE Alcohol intake: current Drinks per week: 2 Alcohol use details: rarely- beer, gin, bengali whiskey Substance use: never Substance use type: does not use Current Housing: Decline to Answer Concerned About Future Housing: De
[2023-09-04] VITALS (12 sets, daily range): BP systolic 93–140; BP diastolic 34–59; PULSE 73–91; RESP 10–20; TEMP 36–37.1; O2SAT 0–100
--- NOTE | ~2023-09-04 | XR_ITS ---
EXAMINATION: XR hip LT 1V w AP pelvis DATE: 09/04/2023 15:00 INDICATION: Left hip arthroplasty TECHNIQUE: Portable view of the left hip FINDINGS: There is a left total hip arthroplasty in expected position. Subcutaneous gas with soft ti ssue swelling are consistent with recent surgery. IMPRESSION: 1. Recent total hip arthroplasty. Reviewed, dictated and finalized at location B.
--- NOTE | ~2023-09-04 | XR_ITS ---
EXAMINATION: XR surgery orthopedic DATE: 09/04/2023 14:47 INDICATION: Total left hip arthroplasty, anterior approach. TECHNIQUE: 2 intraoperative fluoroscopic views of left hip were obtained. I was not present. Fluorosc opy exposure time was 46 seconds. COMPARISON: Left hip radiographs 04/24/2023 FINDINGS: The first image demonstrates resection of head of left femur. The second image demonstrates a total left hip arthroplasty in near-anatomic alignment. IMPRESSION: 1. Total left hip arthroplasty in near-anatomic alignment. Reviewed, dictated and finalized at location E.
[2023-09-04] MEDS: ceFAZolin SODIUM 1 GM VIAL 3 GM (08:52)
[2023-09-04] MEDS: TRANEXAMIC ACID 1,000MG/ISO100 1,000 MG/100 ML BAG 200 MG IVPB (11:00)
[2023-09-04] MEDS: ACETAMINOPHEN 500 MG TABLET 1000 MG PO (11:00)
[2023-09-04] MEDS: VANCOMYCIN 1,000 MG/NS 250 ML 1,000 MG/250 ML BAG 250 MG IVPB ×2 (11:00→22:31)
--- NOTE | 2023-09-04 11:32 | WPDANESEPPF ---
Anes - Initial Pre Proc Eval Procedure: Operation Date: 09/04/23 12:00 Proposed Procedures p Left Total Hip Arthroplasty, Anterior Approach - Deuce Minaya MD Date/Time: 09/04/23 11:32 Surgeon: Deuce Minaya MD Pre Op Diagnosis: OA left hip Patient Data Age: 83 Gender: F Height: 1.52 m Weight: 64.5 kg Last Vital Signs Temp 36.3 C L 09/04/23 11:15 Pulse 73 09/04/23 11:15 Resp 14 09/04/23 11:15 BP 140/59 L 09/04/23 11:15 Pulse Ox 0 L 09/04/23 11:15 O2 Del Method Room Air 08/12/23 14:34 Allergies Allergy/AdvReac Type Severity Reaction Status Date / Time diphenhydramine Allergy Intermediate Hallucinati Verified 09/04/23 11:31 [From Shani] ng Inhaled Anesthetics (Halogen AdvReac Severe Nausea and Verified 09/04/23 11:31 Based) Vomiting meperidine AdvReac Intermediate Nausea and Verified 09/04/23 11:31 Vomiting Home Medications Medication Instructions Recorded Confirmed Type AlgaeCal 1 tab-cap BYMOUTH DAILY 08/01/20 08/12/23 History acetaminophen 650 mg 650 mg PO Q8H PRN pain 03/06/22 08/12/23 History tablet,extended release (Tylenol Arthritis Pain) famotidine-Ca carb-mag hydrox 10 1 tablet PO BID PRN indigestion 03/06/22 08/12/23 History mg-800 mg-165 mg chewable tablet (Pepcid Complete) fluocinolone acetonide oil 0.01 % 5 drp EACH EAR .COMPLEX #20 mL 05/18/23 08/12/23 Rx ear drops mecobalamin (vitamin B12) 500 mcg 500 mcg PO DAILY 05/18/23 08/12/23 History chewable tablet atorvastatin 10 mg tablet 10 mg PO . q.h.s. #90 tabs 08/14/23 Rx Patient hx anesthesia problems: post op nausea/vomiting Family hx anesthesia problems: none Results Review: All pre-operative results and documents have been reviewed as part of the pre-operative evaluation. [facility] Past Medical History Medical History Acquired hallux valgus of left foot Anemia Arthritis of left hip Arthritis of left shoulder region Arthritis of right shoulder region Arthritis, lumbar spine At moderate risk for fall BMI 26.0-26.9,adult BMI 27.0-27.9,adult Carpal tunnel syndrome Cataract Chronic low back pain with right-sided sciatica Colon cancer screening colonoscopy with Dr. Perez on 05/29/2016 unremarkable except for diverticulosis. Cyst of ear canal Dyslipidemia Dysuria Ear canal mass Ear itching Ear itching Elevated cholesterol Elevated fasting glucose glucose 99 with hemoglobin A1c 5.7. Fasting glucose 103 on 04/15/2023. nonfasting glucose 106 with hemoglobin A1c 5.5 on 08/12/2023. GERD (gastroesophageal reflux disease) Hallux valgus (acquired), right foot Headache, migraine Hearing loss Lower back pain Lymphocytosis Mixed hyperlipidemia Total cholesterol 174, triglycerides 64, HDL 56, LDL 87 on 03/12/2022. VINICIUS (obstructive sleep apnea) Osteopenia after menopause DEXA bone density study on 08/19/2021 with T-score normal at the spine at 1.346 with -2.1 at the left hip with osteopenia Osteoporosis Other specified personal risk factors, not elsewhere classified Overweight (BMI 25.0-29.9) (~02/09/23) Peripheral neuropathy history of peripheral neuropathy in the feet causing problems with balance Post-menopause Prediabetes Primary osteoarthritis involving multiple joints Right hip pain Screening mammogram, encounter for normal mammogram 08/11/2022. normal mammogram 08/27/2023. Sleep apnea Trigger finger, right ring finger UTI (urinary tract infection) Vaccine counseling Surgical History Surgical History H/O arthroscopy of knee H/O carpal tunnel repair H/O cataract extraction H/O lumpectomy History of section History of hip replacement Right hip 2018 History of knee replacement 2017 & 2016 History of shoulder replacement reverse right shoulder 2020 Dr. Lea Family History Family History (Reviewed 09/04/23 @ 11:33 by Kyrie
--- NOTE | 2023-09-04 11:34 | WPDHPUPDATE1 ---
History and Physical Update Update Date/Time: 09/04/23 11:34 History and Physical has been reviewed, including an updated exam of the patient. There are NO changes in the patient's condition. Risks, benefits, and alternatives have been discussed and questions answered. Patient agrees to proceed with procedure.
--- NOTE | 2023-09-04 11:38 | WPDHPUPDATE1 ---
History and Physical Update Update Date/Time: 09/04/23 11:38 History and Physical has been reviewed, including an updated exam of the patient. There are NO changes in the patient's condition. Risks, benefits, and alternatives have been discussed and questions answered. Patient agrees to proceed with procedure.
[2023-09-04] MEDS: ceFAZolin 2 GM/D5W 50 ML 2 GM/50 ML BAG IVPB (11:45)
[2023-09-04] MEDS: SODIUM CHLORIDE 0.9% IV 37.7 ML, MORPHINE SULFATE INJ (*CRX) 2 MG, ROPivacaine HCL 1% 2... INFILTRATE (12:18)
[2023-09-04] MEDS: ceFAZolin SODIUM 1 GM VIAL 2 GM IV PUSH (14:26)
[2023-09-04] MEDS: TRANEXAMIC ACID 1,000 MG/10 ML AMPUL 1000 MG IV PUSH (14:26)
--- NOTE | 2023-09-04 14:47 | W.PM.PROC2 ---
Procedure Note - Detailed Date of Procedure 09/04/23 Pre-op Diagnosis OA left hip Post-op Diagnosis Same Procedure Performed Left total hip replacement direct anterior approach Surgeon Deuce Minaya MD Durable Medical Equipment Repairer Dayana MIRANDA Anesthesia General Description of Procedure Patient was brought to the operating room and general anesthesia was administered. She received 2 g of Ancef weight based vancomycin 1 g of TXA preoperatively. The feet were padded boots applied and the patient transferred to the OSI [place] table and left hip prepped draped usual fashion. A 10 cm longitudinal incision was made starting about 2.5 cm lateral to the ASIS. Fascia over the tensor fascia alexsandra was exposed and longitudinally incised and elevated off the anterior 50% of the tensor fascia alexsandra muscle. The main trunk of vessels from the ascending lateral femoral circumflex vessels were isolated and ligated with suture divided. A retractor placed anteromedial to the capsule and the gluteus minimus elevated off the lateral capsule and inverted T capsulotomy was performed. Femoral neck osteotomy was made according to preoperative template. Femoral head was removed without difficulty measured 42 mm in diameter. Labrum was excised. The proximal femur continue to bleed significantly more than average from the intramedullary canal. She was hypertensive and required hydralazine to control her blood pressure satisfactorily and even with this there was more bleeding than desirable therefore we packed the proximal end of the femur with 1 package of sterile bone wax which did a nice job of stopping blood loss completely. The the acetabulum was exposed and a markedly degenerative bulky the labrum excised. Of note she had a large effusion of clear fluid. The leg was externally rotated and elevated and interval between conjoined tendon and piriformis tendon was incised. This gave us adequate exposure of the femur. Leg was brought back in the horizontal position acetabulum prepared medialized to the medial wall with a 42 Reamer and we reamed up to the 45 which is almost to the very periphery and 46 Reamer was fully seated and the 46 trial and a tight fit. We chose the 46 emphasis cup which was impacted at 40? of anteversion the anterior edge of the shell just under the anterior rim of the acetabulum which left posterior rim flush with the posterior edge of the acetabulum. An excellent Press-Fit was achieved as her bone was quite dense. The single screw was placed in the ilium. Some of to the femur, acetabular bone bleeding was still significant until we impacted the 32 inner diameter liner which. The acetabular bleeding per nicely. The leg was then externally rotated and extended with the table hook in place and the previously placed bone wax in the femoral canal was completely removed. We broached up to a size 4 which gave complete torsional stability and trialed and we found that the standard neck +5 gave equal leg lengths under fluoro equal offset and appropriate soft tissue tension with excellent stability. The femoral neck calcar planing was completed. We confirmed torsional stability the broach and placed the size 4 Actis standard offset stem which seated fully. Her femoral neck cortical bone was surprisingly thick and mtz. There were no cracks. We trialed 1 more time with the +5 and appropriate soft tissue tension was again noted. The real +5 stainless steel head was impacted on the clean and dried trunnion. The wound was irrigated with antibiotic solution and hip reduced stability reconfirmed. Final intraoperative x-ray obtained. Superior capsular incision repaired with 2. Vicryl. Local anesthetic cocktail injected into the periarticular soft tissues. Fascia was repaired with running 1. Vicryl a drain placed deep in the subcu skin closed with 2 subcutaneous Vicryl and glue. EBL was estimated at 350 cc. At time of wound closure the wound was quite dry. 2 g of Ancef were given time
[2023-09-04] MEDS: LACTATED RINGERS 1,000 ML 30 ML IV CONT ×2 (15:02)
[2023-09-04] MEDS: fentaNYL CITRATE INJ (*CRX) 100 MCG/2 ML VIAL 25 MCG IV PUSH ×3 (15:35→16:14)
--- NOTE | 2023-09-04 16:32 | ADMGEN ---
This patient, Brenda Maher, was admitted to Medical Room 243-01. Patient/family oriented to hospital policies and general routines including ID bracelet, bed and alarms, visiting hours, pain management, procedures, bathroom and other care routines, personal items, smoking policy, room service/diet, and visiting hours. Information on how to activate the Rapid Response Team has been discussed. Patient/Family are encouraged to report perceived risks to care and to ask questions if they do not understand what they are told or what they should do.
[2023-09-04] MEDS: SODIUM CHLORIDE 0.9% IV 1,000 ML 125 ML IV CONT (16:46)
[2023-09-04] MEDS: ONDANSETRON INJ 4 MG/2 ML VIAL IV PUSH (16:46)
[2023-09-04] MEDS: ACETAMINOPHEN 500 MG TABLET PO ×2 (18:18→22:32)
--- NOTE | 2023-09-04 18:19 | PC.NURSE ---
pt having some slight nausea post-op, does not want 1700 dose of oxy, agreed to tylenol
[2023-09-04 19:04] LABS: Hematocrit 28.5 % (37.0-47.0); Hemoglobin 9.3 g/dL (12.0-15.0)
[2023-09-04] MEDS: FAMOTIDINE 20 MG TABLET PO (21:20)
--- NOTE | 2023-09-04 23:18 | PM.IMCN ---
Assessment and Plan Assessment and plan (1) Osteoarthritis of left hip: Qualifiers: Osteoarthritis type: primary Qualified Code(s): M16.12 - Unilateral primary osteoarthritis, left hip Code(s): M16.12 - Unilateral primary osteoarthritis, left hip Status: Acute (2) Peripheral neuropathy: Qualifiers: Peripheral neuropathy type: polyneuropathy, unspecified Qualified Code(s): G62.9 - Polyneuropathy, unspecified Code(s): G62.9 - Polyneuropathy, unspecified Status: Acute (3) Ear itching: Code(s): L29.9 - Pruritus, unspecified Status: Acute (4) Hearing loss, bilateral: Qualifiers: Hearing loss type: unspecified Qualified Code(s): H91.93 - Unspecified hearing loss, bilateral Code(s): H91.93 - Unspecified hearing loss, bilateral Status: Acute (5) Arthritis of left hip: Code(s): M16.12 - Unilateral primary osteoarthritis, left hip Status: Chronic (6) Arthritis, lumbar spine: Code(s): M47.816 - Spondylosis without myelopathy or radiculopathy, lumbar region Status: Acute (7) Lumbar radicular pain: Code(s): M54.16 - Radiculopathy, lumbar region Status: Acute (8) Osteopenia after menopause: Code(s): M85.80 - Other specified disorders of bone density and structure, unspecified site; Z78.0 - Asymptomatic menopausal state Status: Acute (9) Chronic low back pain with right-sided sciatica: Qualifiers: Back pain laterality: bilateral Qualified Code(s): M54.41 - Lumbago with sciatica, right side; G89.29 - Other chronic pain Code(s): M54.41 - Lumbago with sciatica, right side; G89.29 - Other chronic pain Status: Acute (10) GERD (gastroesophageal reflux disease): Qualifiers: Esophagitis presence: without esophagitis Qualified Code(s): K21.9 - Gastro-esophageal reflux disease without esophagitis Code(s): K21.9 - Gastro-esophageal reflux disease without esophagitis Status: Acute (11) Mixed hyperlipidemia: Code(s): E78.2 - Mixed hyperlipidemia Status: Acute (12) Overweight (BMI 25.0-29.9): Onset Date: ~02/09/23 Code(s): E66.3 - Overweight Status: Acute (13) History of hip replacement: Qualifiers: Laterality: right Qualified Code(s): Z96.641 - Presence of right artificial hip joint Code(s): Z96.649 - Presence of unspecified artificial hip joint Status: Resolved (14) Megaloblastic anemia: Code(s): D53.1 - Other megaloblastic anemias, not elsewhere classified Status: Acute (15) Hypovitaminosis D: Code(s): E55.9 - Vitamin D deficiency, unspecified Status: Acute (16) VINICIUS (obstructive sleep apnea): Code(s): G47.33 - Obstructive sleep apnea (adult) (pediatric) Status: Acute (17) Actinic keratosis: Code(s): L57.0 - Actinic keratosis Status: Acute Plan Patient admitted in [facility] under Orthopedics service Patient successfully underwent total hip replacement on 09/04/2023 Postop patient is doing well and her pain is under control Postop ordered by Orthopedic as Eliquis 2.5 mg p.o. q.12 hours for 35 days Postop antibiotics as per Orthopedics Gentle IV hydration ordered with normal saline at 75 cc/hour for 1000cc Strict input and output monitoring Monitor renal functions closely Anemia workup ordered with vitamin B12, folic acid, iron profile and ferritin levels Patient's hemoglobin A1c is 5.5 % from 3 weeks ago which is within normal limits Ordered fasting lipid profile in am Home meds reviewed and started in the hospital Thank you, Dr. Minaya, for involving us in the care of this wonderful patient. We will follow up closely with you while the patient is admitted on the floor. Please feel free to contact [facility] Hospitalist Team if you have any questions. ? Patient seen and examined at bedside during my morning rounds ? Collaborated with payton
[2023-09-05] MEDS: SODIUM CHLORIDE 0.9% IV 1,000 ML 75 ML IV CONT (01:04)
[2023-09-05 02:00] VITALS: BP 105/38; PULSE 74; RESP 14; TEMP 36.6; O2SAT 97
[2023-09-05 05:30] LABS: Basophils Percent Auto 0.3 % (0.2-1.2); Hematocrit 27.1 % (37.0-47.0); Hemoglobin 8.7 g/dL (12.0-15.0); Immature Granulocyte Absolute 0.12 K/mm3 (0.00-0.031); Lymphocytes Absolute Auto 0.97 K/mm3 (0.9-3.2); Lymphocytes Percent Auto 7.7 % (18.3-44.2); Mean Corpuscular HGB Conc 32.1 g/dl (32-36); Mean Corpuscular Hemoglobin 35.4 pg (26-34); Mean Corpuscular Volume 110.2 fl (80-100); Mean Platelet Volume 9.7 fl (7.4-10.4); Monocytes Absolute Auto 1.1 K/mm3 (0.1-0.6); Monocytes Percent Auto 8.4 % (2.6-8.5); Neutrophils Absolute Auto 10.4 K/mm3 (1.3-6.7); Neutrophils Percent Auto 82.6 % (45.5-73.1); Nucleated Red Blood Cells Perc 0.6 % (0.0-0.2); Platelet Count Result 279 k/mm3 (150-375); Red Blood Count 2.46 M/mm3 (4.2-5.4); Red Cell Distribution Width 15.2 % (11.5-14.5); White Blood Count 12.6 K/mm3 (4.5-10.0)
[2023-09-05] MEDS: ACETAMINOPHEN 500 MG TABLET PO ×2 (05:31→11:38)
[2023-09-05] MEDS: oxyCODONE HCL (*CRX) 2.5 MG TAB IR PO (05:32)
[2023-09-05 05:41] LABS: Iron 38 ug/dL (37-170)
[2023-09-05 05:42] LABS: Anion Gap 4 mmol/L (4-12); Blood Urea Nitrogen 13 mg/dL (7-17); Calcium 8.7 mg/dL (8.4-10.2); Carbon Dioxide 22 mmol/L (22-30); Chloride 111 mmol/L (98-107); Estimated CRCL calculation 62 ml/min; Estimated Glomerular Filt Rate > 60; Glucose 106 mg/dL (65-110); Magnesium 1.9 mg/dL (1.6-2.3); Phosphorus 3.6 mg/dL (2.5-4.5); Potassium 3.8 mmol/L (3.4-5.0); Sodium 137 mmol/L (137-145)
[2023-09-05 05:50] LABS: Percent Iron Saturation 14 % (20-50)
[2023-09-05 05:51] LABS: Anisocytosis 1+; Macrocytosis 1+ (NORMAL); Platelet Estimate Adequate (Adequate)
[2023-09-05 05:52] LABS: Ovalocytes 1+; Schistocytes None Seen
[2023-09-05 05:59] LABS: Vitamin D 25 Hydroxy 44.4 ng/mL
[2023-09-05 06:00] VITALS: BP 109/44; PULSE 81; RESP 14; TEMP 36.4; O2SAT 95
[2023-09-05 06:49] LABS: Folic Acid 18.7 ng/mL (2.76->20); Vitamin B12 > 1000.0 pg/mL (239-931)
--- NOTE | 2023-09-05 08:24 | WPDANESPN ---
Anes - Prog Note Post-Op Date/Time: 09/05/23 08:24 Cardiovascular status: normal Respiratory status: normal Airway patency: baseline Mental status: baseline Post-Op hydration status: normal Vital Signs: Last Vital Signs Temp 36.4 C L 09/05/23 06:00 Pulse 81 09/05/23 06:00 Resp 14 09/05/23 06:00 BP 109/44 L 09/05/23 06:00 Pulse Ox 95 09/05/23 06:00 O2 Del Method Room Air 09/04/23 21:00 O2 Flow Rate 2 09/04/23 17:42 Pain Score (VAS): 07/07 I/O: Intake & Output 09/04/23 09/05/23 09/05/23 23:59 07:59 15:59 Intake Total 1749.2 470 Output Total 20 Balance 1749.2 450 Laboratory Tests 09/05/23 04:45 09/05/23 04:45 09/04/23 09/04/23 09/05/23 10:47 18:58 04:45 WBC 12.6 H RBC 2.46 L Hgb 9.3 L 8.7 L Hct 28.5 L 27.1 L MCV 110.2 H MCH 35.4 H MCHC 32.1 RDW 15.2 H Plt Count 279 MPV 9.7 Immature Gran % (Auto) 1.0 H Neut % (Auto) 82.6 H Lymph % (Auto) 7.7 L Runnels % (Auto) 8.4 Eos % (Auto) 0.0 Baso % (Auto) 0.3 Lymph # (Auto) 0.97 Runnels # (Auto) 1.1 H Eos # (Auto) 0.0 Baso # (Auto) 0.0 Abs Immat Gran (auto) 0.12 H Absolute Neuts (auto) 10.4 H Absolute Nucleated RBC 0.080 H Nucleated RBC % 0.6 H Platelet Estimate Adequate Anisocytosis 1+ Macrocytosis 1+ Ovalocytes 1+ Schistocytes None seen Sodium 137 Potassium 3.8 Chloride 111 H Carbon Dioxide 22 Anion Gap 4 BUN 13 D Creatinine 0.50 L Estim Creat Clear Calc 62 Estimated GFR > 60 Glucose 106 Calcium 8.7 Phosphorus 3.6 Magnesium 1.9 Iron 38 TIBC 271 % Saturation 14 L Ferritin 616.00 H Vitamin B12 > 1000.0 H Vitamin D 25-Hydroxy 44.4 Folate 18.7 Blood Type A Positive Antibody Screen Negative Post-procedural complaints: nausea (patient reports PONV with every procedure. resolved) Patient Feedback: Patient satisfied with anesthetic care.
[2023-09-05 08:30] VITALS: BP 118/45; PULSE 79
[2023-09-05] MEDS: APIXABAN 2.5 MG TABLET PO (08:35)
[2023-09-05] MEDS: CYANOCOBALAMIN 500 MCG TABLET PO (08:35)
[2023-09-05] MEDS: polyethylene glycoL 3350 17 GM POWD.PACK PO (08:36)
[2023-09-05] MEDS: CELECOXIB 100 MG CAPSULE PO (08:36)
[2023-09-05] MEDS: SENNA/DOCUSATE SODIUM TABLET 2 TAB PO (08:36)
[2023-09-05] MEDS: FAMOTIDINE 20 MG TABLET PO (08:36)
--- NOTE | 2023-09-05 11:09 | PM.IMPN ---
Subjective Date/time seen: 09/05/23 11:09 Objective Data Vital Signs Vital Signs: Vital Signs - 24 hr 09/04/23 11:15 09/04/23 15:02 09/04/23 15:15 Temperature 36.3 C L 37.1 C Pulse Rate 73 91 82 Respiratory Rate 14 10 L 14 Blood Pressure 140/59 L 119/49 L 114/50 L Pulse Oximetry 0 L 100 100 Oxygen Delivery Simple Face Mask Simple Face Mask Oxygen Flow Rate 8 8 09/04/23 15:30 09/04/23 15:45 09/04/23 16:00 Temperature Pulse Rate 82 82 80 Respiratory Rate 14 12 12 Blood Pressure 112/51 L 103/44 L 95/50 L Pulse Oximetry 100 98 98 Oxygen Delivery Simple Face Mask Nasal Cannula Nasal Cannula Oxygen Flow Rate 8 2 2 09/04/23 16:08 09/04/23 16:35 09/04/23 17:00 Temperature 36.0 C L 36.6 C Pulse Rate 79 76 76 Respiratory Rate 12 16 14 Blood Pressure 99/45 L 93/36 L 94/34 L Pulse Oximetry 98 96 96 Oxygen Delivery Nasal Cannula Oxygen Flow Rate 2 09/04/23 17:00 09/04/23 17:42 09/04/23 18:00 Temperature 36.7 C Pulse Rate 76 78 73 Respiratory Rate 16 20 18 Blood Pressure 99/39 L Pulse Oximetry 96 97 100 Oxygen Delivery Nasal Cannula Nasal Cannula Oxygen Flow Rate 2 2 09/04/23 22:00 09/05/23 02:00 09/04/23 21:00 Temperature 36.6 C 36.6 C Pulse Rate 81 74 Respiratory Rate 14 14 Blood Pressure 103/40 L 105/38 L Pulse Oximetry 97 97 Oxygen Delivery Room Air Oxygen Flow Rate 09/05/23 06:00 09/05/23 08:30 09/05/23 09:21 Temperature 36.4 C L Pulse Rate 81 79 Respiratory Rate 14 Blood Pressure 109/44 L 118/45 L Pulse Oximetry 95 Oxygen Delivery Room Air Oxygen Flow Rate 09/05/23 08:41 09/05/23 08:35 Temperature Pulse Rate Respiratory Rate Blood Pressure Pulse Oximetry Oxygen Delivery Room Air Room Air Oxygen Flow Rate Intake/Output Intake/Output: Intake & Output 09/02/23 09/03/23 09/04/23 09/05/23 23:59 23:59 23:59 23:59 Intake Total 1799.2 470 Output Total 20 Balance 1799.2 450 Meds/Results Medications: Active Medications Generic Name Dose Route Start Last Admin Trade Name Mehran PRN Reason Stop Dose Admin Acetaminophen 500 mg 09/04/23 17:00 09/05/23 05:31 Acetaminophen 500 Mg Tablet PO 500 mg Q6H MAGGIE Administration Acetaminophen 650 mg 09/04/23 23:20 Acetaminophen 325 Mg Tablet PO Q8H PRN pain 1-3 Apixaban 2.5 mg 09/05/23 09:00 09/05/23 08:35 Apixaban 2.5 Mg Tablet PO 10/09/23 21:01 2.5 mg Q12HR MAGGIE Administration Atorvastatin Calcium 10 mg 09/05/23 21:00 Atorvastatin 10 Mg Tablet PO HS MAGGIE Cefdinir 300 mg 09/05/23 21:00 Cefdinir 300 Mg Capsule PO Q12HR MAGGIE Celecoxib 100 mg 09/05/23 09:00 09/05/23 08:36 Celecoxib 100 Mg Capsule PO 100 mg DAILY MAGGIE Administration Cyanocobalamin 500 mcg 09/05/23 09:00 09/05/23 08:35 Cyanocobalamin 500 Mcg Tablet PO 10/05/23 08:59 500 mcg DAILY MAGGIE Administration Famotidine 20 mg 09/04/23 21:00 09/05/23 08:36 Famotidine 20 Mg Tablet PO 20 mg Q12HR MAGGIE Administration Sodium Chloride 1,000 mls @ 75 mls/hr 09/04/23 16:15 09/05/23 01:04 Normal Saline Iv IV CONT 75 mls/hr .[id number] MAGGIE Administration Vancomycin HCl 1,000 mg in 250 mls @ 250 mls/hr 09/04/23 23:00 09/04/23 23:31 Vancomycin 1,000 Mg/Ns 250 Ml IVPB 09/05/23 11:59 Infused Q12H MAGGIE Infusion Miscellaneous Information 0 each 09/04/23 00:01 Fluocinolone Solution Nonform Can Pt Bring From Home? Or Hold While Here XX 10/04/23 00:00 CLARIFY MAGGIE Naloxone HCl 0.1 mg 09/04/23 16:15 Naloxone Hcl 0.4 Mg/Ml Vial IV PUSH Q2M PRN Opiate Reversal Non-Formulary Medication 1 tab-cap 09/05/23 09:00 Algaecal PO 10/05/23 08:59 DAILY MAGGIE Non-Formulary Medication 5 drop 09/04/23 23:30 Fluocinolone Acetonide Oil EACH EAR 10/04/23 23:29 .COMPLEX MAGGIE Ondansetron HCl 4 mg 09/04/23 16:15 09/04/23 16:46 Ondansetron Inj 4 Mg/2 Ml Vial IV PUSH 4 mg Q4H PRN Ad
--- NOTE | 2023-09-05 11:22 | PM.DS ---
DS: Admitting Diagnosis Discharge Date 09/05/2023 Admitting Diagnosis Osteoarthritis left hip DS: Discharge Diagnosis Discharge Diagnosis (1) Status post left hip replacement: Code(s): Z96.642 - Presence of left artificial hip joint Status: Acute DS: Summary Hospital Course Hospital Course: Patient came into the hospital on 09/04/2023 for total hip arthroplasty. She has done well without postoperative complication. Her hemoglobin this morning is 8.7 and her vital signs are stable. Her hemoglobin last week was 10.4 and 10.8 on 2 different checks. She has long-standing megaloblastic anemia. She has been asymptomatic with her anemia. Today she walked 150 ft down the halls this morning and she has very little discomfort on the Tylenol and 2.5 mg oxycodone pain regimen. Her wound looks fine and she is neurologically intact in left leg. She would like to go home this afternoon. Her son will be with her over the weekend and then she will have friends stain with her next week. I would like to check CBC on Thursday in 2 days and we will ask the palliative care nurse to arrange a home health nurse to go to her house and check her vitals and check a CBC on that day and call that to me. If she has any problems or difficulty she will call. Time Spent with Patient Time attestation: Total time spent providing and/or coordinating discharge services: DS: Data Data Completed and Pending Labs on day of discharge: Labs from last 24 hours 09/05/23 09/04/23 09/04/23 04:45 18:58 10:47 WBC 12.6 H RBC 2.46 L Hgb 8.7 L 9.3 L Hct 27.1 L 28.5 L MCV 110.2 H MCH 35.4 H MCHC 32.1 RDW 15.2 H Plt Count 279 MPV 9.7 Immature Gran % (Auto) 1.0 H Neut % (Auto) 82.6 H Lymph % (Auto) 7.7 L [place] % (Auto) 8.4 Eos % (Auto) 0.0 Baso % (Auto) 0.3 Lymph # (Auto) 0.97 [place] # (Auto) 1.1 H Eos # (Auto) 0.0 Baso # (Auto) 0.0 Abs Immat Gran (auto) 0.12 H Absolute Neuts (auto) 10.4 H Absolute Nucleated RBC 0.080 H Nucleated RBC % 0.6 H Platelet Estimate Adequate Anisocytosis 1+ Macrocytosis 1+ Ovalocytes 1+ Schistocytes None seen Sodium 137 Potassium 3.8 Chloride 111 H Carbon Dioxide 22 Anion Gap 4 BUN 13 D Creatinine 0.50 L Estim Creat Clear Calc 62 Estimated GFR > 60 Glucose 106 Calcium 8.7 Phosphorus 3.6 Magnesium 1.9 Iron 38 TIBC 271 % Saturation 14 L Ferritin 616.00 H Vitamin B12 > 1000.0 H Vitamin D 25-Hydroxy 44.4 Folate 18.7 Blood Type A Positive Antibody Screen Negative Discharge Plan Discharge Patient Disposition: Home, Self-Care Discharge Instructions: SOWMYA LANGFORD M.D [facility] [address] [address] [address] [place] [address] POST-OPERATIVE DISCHARGE INSTRUCTIONS ANTERIOR TOTAL HIP ARTHROPLASTY 1. Move toes/feet up and down every hour while awake. 2. Be up walking every hour while awake. 3. Use walker pipelines manager if instructed to use walker pipelines manager.When you are allowed to use the cane, use the cane in the opposite hand. 4. When resting, do not rest in the chair. Rather, lie on your back, with back flat, and the leg elevated above heart to minimize swelling. You may put a pillow under your head. Do not rest in a chair. Resting in the chair results in swelling in the leg. Significant swelling could indicate a blood clot and if this occurs, call the office (or go to the ER) to have a venous ultrasound performed. Its ok to sit in the chair to eat and use the toilet and to receive a guest but sitting in a chair will cause your leg to swell. so try to minimize sitting in a chair. 5. Wound Care: Apply a folded 4x4 sponge to incision and hold with crossing strips of 1 inch Transpore tape. 6. Follow weight bearing status as instructed: 7. May shower. Remove dressing before shower and reapply dressing after s
[2023-09-05] MEDS: VANCOMYCIN 1,000 MG/NS 250 ML 1,000 MG/250 ML BAG 250 MG IVPB (11:38)
== END 2023-09-05 14:40 | disposition home or self-care (01) ==
LOC: ANHSURGERY 10:01 → ANH2MED 16:18
PROVIDERS: Family Medicine; Physician Assistant Surgical; PCP Family Medicine; Visit Provider Orthopaedic Surgery
PROC: (CPT 27130; principal; 2023-09-04 12:00)
DX: M16.12 Unilateral primary osteoarthritis, left hip (principal); E78.00 Pure hypercholesterolemia, unspecified; G47.33 Obstructive sleep apnea (adult) (pediatric); M81.0 Age-related osteoporosis without current pathological fracture; G62.9 Polyneuropathy, unspecified; K21.9 Gastro-esophageal reflux disease without esophagitis; D53.1 Other megaloblastic anemias, not elsewhere classified; L29.9 Pruritus, unspecified; H91.93 Unspecified hearing loss, bilateral; M47.816 Spondylosis without myelopathy or radiculopathy, lumbar region; M85.80 Other specified disorders of bone density and structure, unspecified site; Z78.0 Asymptomatic menopausal state; M54.41 Lumbago with sciatica, right side; G89.29 Other chronic pain; L57.0 Actinic keratosis; E55.9 Vitamin D deficiency, unspecified; Z87.891 Personal history of nicotine dependence
CPT/HCPCS: 27130; 36415; 73501; 80048; 80307; 82040; 82306; 82607; 82728; 82746; 83036; 83540; 83550; 83735; 84100; 85014; 85018; 85025; 86850; 86900; 86901; 87081; 97110; 97116; 97161; 97165; 97530; 97535; 99199; A9270; C1776; J0171; J0360; J0690; J1100; J1170; J1885; J2270; J2371; J2405; J2704; J2795; J3010; J3370; J7030; J7120

== ENCOUNTER 2023-09-06 06:54 | Emergency (ER) | payer MEDICARE, SELFPAY ==
[2023-09-06] VITALS (14 sets, daily range): BP systolic 140–162; BP diastolic 58–72; PULSE 81–98; RESP 12–17; TEMP 37.2; O2SAT 94–100
[2023-09-06 07:35] LABS: Basophils Absolute Auto 0.1 K/mm3 (0.0-0.1); Basophils Percent Auto 0.9 % (0.2-1.2); Eosinophils Absolute Auto 0.1 K/mm3 (0-0.3); Eosinophils Percent Auto 0.9 % (0-4.4); Hematocrit 24.7 % (37.0-47.0); Hemoglobin 8.1 g/dL (12.0-15.0); Lymphocytes Absolute Auto 1.34 K/mm3 (0.9-3.2); Mean Corpuscular HGB Conc 32.8 g/dl (32-36); Mean Corpuscular Volume 109.8 fl (80-100); Mean Platelet Volume 9.6 fl (7.4-10.4); Monocytes Percent Auto 10.4 % (2.6-8.5); Neutrophils Percent Auto 72.8 % (45.5-73.1); Nucleated Red Blood Cells Perc 0.6 % (0.0-0.2); Platelet Count Result 229 k/mm3 (150-375); Red Blood Count 2.25 M/mm3 (4.2-5.4); Red Cell Distribution Width 15.7 % (11.5-14.5); White Blood Count 9.6 K/mm3 (4.5-10.0)
[2023-09-06 07:46] LABS: INR 1.2; Prothrombin Time 15.7 Seconds (11.1-14.7)
[2023-09-06 07:47] LABS: Partial Thromboplastin Time 33.8 Seconds (22.3-36.8)
[2023-09-06 07:48] LABS: Alanine Aminotransferase 25 U/L (6-35); Albumin Level 3.2 g/dL (3.5-5.1); Alkaline Phosphatase 49 U/L (38-126); Anion Gap 3 mmol/L (4-12); Aspartate Amino Transferase 47 U/L (14-36); Blood Urea Nitrogen 11 mg/dL (7-17); Calcium 8.8 mg/dL (8.4-10.2); Carbon Dioxide 26 mmol/L (22-30); Chloride 109 mmol/L (98-107); Estimated CRCL calculation 58 ml/min; Estimated Glomerular Filt Rate > 60; Glucose 120 mg/dL (65-110); Potassium 3.7 mmol/L (3.4-5.0); Sodium 138 mmol/L (137-145)
[2023-09-06 07:55] LABS: Anisocytosis 1+; Hypochromasia 1+; Platelet Estimate Adequate (Adequate); Schistocytes None Seen
--- NOTE | 2023-09-06 08:15 | ED.EXTPRO ---
HPI - Extremity Problem General Chief complaint: Extremity Problem,Nontraumatic Stated complaint: left hip pain, replacement 2 days ago, warm Time Seen by Provider: 09/06/23 06:58 History of Present Illness HPI Narrative: Patient is an 83-year-old female who presents ER with concerns for infection to her left hip. Patient recently underwent left total hip arthroplasty by Dr. Minaya. She was discharged from the hospital yesterday. She reports increased warmth to the incision area and has had to take her oxycodone which is atypical for her. No fevers or chills or sweats. No wound dehiscence. No drainage. She is supposed to have an outpatient CBC performed tomorrow. Related Data Home Medications Medication Instructions Recorded Confirmed AlgaeCal 1 tab-cap BYMOUTH DAILY 08/01/20 08/12/23 famotidine-Ca carb-mag hydrox 10 1 tablet PO BID PRN indigestion 03/06/22 08/12/23 mg-800 mg-165 mg chewable tablet (Pepcid Complete) mecobalamin (vitamin B12) 500 mcg 500 mcg PO DAILY 05/18/23 08/12/23 chewable tablet atorvastatin 10 mg tablet 10 mg PO HS 09/04/23 09/04/23 Allergies Allergy/AdvReac Type Severity Reaction Status Date / Time diphenhydramine Allergy Intermediate Hallucinati Verified 09/04/23 18:07 [From Benadryl] ng Inhaled Anesthetics (Halogen AdvReac Severe Nausea and Verified 09/04/23 18:07 Based) Vomiting meperidine AdvReac Intermediate Nausea and Verified 09/04/23 18:07 Vomiting Review of Systems Review of Systems: All systems reviewed & are unremarkable except as noted in HPI and below Constitutional: Constitutional: Reports no additional constitutional complaints Cardiovascular: Cardiovascular: Reports no additional cardiovascular complaints Respiratory: Respiratory: Reports no additional respiratory complaints Musculoskeletal: Musculoskeletal: Reports no additional musculoskeletal complaints Integumentary/Breasts: Skin/Breast: Denies erythema and Denies rash Comments: Warmth of incision site PMFSH Past Medical History Medical History Acquired hallux valgus of left foot Anemia Arthritis of left hip Arthritis of left shoulder region Arthritis of right shoulder region Arthritis, lumbar spine At moderate risk for fall BMI 26.0-26.9,adult BMI 27.0-27.9,adult Carpal tunnel syndrome Cataract Chronic low back pain with right-sided sciatica Colon cancer screening colonoscopy with Dr. Perez on 05/29/2016 unremarkable except for diverticulosis. Cyst of ear canal Dyslipidemia Dysuria Ear canal mass Ear itching Ear itching Elevated cholesterol Elevated fasting glucose glucose 99 with hemoglobin A1c 5.7. Fasting glucose 103 on 04/15/2023. nonfasting glucose 106 with hemoglobin A1c 5.5 on 08/12/2023. GERD (gastroesophageal reflux disease) Hallux valgus (acquired), right foot Headache, migraine Hearing loss Lower back pain Lymphocytosis Mixed hyperlipidemia Total cholesterol 174, triglycerides 64, HDL 56, LDL 87 on 03/12/2022. VINICIUS (obstructive sleep apnea) Osteopenia after menopause DEXA bone density study on 08/19/2021 with T-score normal at the spine at 1.346 with -2.1 at the left hip with osteopenia Osteoporosis Other specified personal risk factors, not elsewhere classified Overweight (BMI 25.0-29.9) (~02/09/23) Peripheral neuropathy history of peripheral neuropathy in the feet causing problems with balance Post-menopause Prediabetes Primary osteoarthritis involving multiple joints Right hip pain Screening mammogram, encounter for normal mammogram 08/11/2022. normal mammogram 08/27/2023. Sleep apnea Trigger finger, right ring finger UTI (urinary tract infection) Vaccine counseling Surgical History Surgical History H/O arthroscopy of knee H/O carpal tunnel repair H/O cataract extraction H/O lumpectomy History of section History of hip replacement Kevin
== END 2023-09-06 10:22 | disposition home or self-care (01) ==
PROVIDERS: Emergency Provider Emergency Medicine; PCP Family Medicine
DX: Z47.1 Aftercare following joint replacement surgery (principal); E78.2 Mixed hyperlipidemia; D64.9 Anemia, unspecified; K21.9 Gastro-esophageal reflux disease without esophagitis; G47.30 Sleep apnea, unspecified; G62.9 Polyneuropathy, unspecified; M16.12 Unilateral primary osteoarthritis, left hip; M19.012 Primary osteoarthritis, left shoulder; M19.011 Primary osteoarthritis, right shoulder; M81.0 Age-related osteoporosis without current pathological fracture; E66.3 Overweight; Z68.26 Body mass index [BMI] 26.0-26.9, adult; R73.03 Prediabetes; Z96.643 Presence of artificial hip joint, bilateral; Z96.659 Presence of unspecified artificial knee joint; Z96.611 Presence of right artificial shoulder joint; Z87.440 Personal history of urinary (tract) infections; Z87.891 Personal history of nicotine dependence; Z98.49 Cataract extraction status, unspecified eye; Z79.01 Long term (current) use of anticoagulants; Z79.899 Other long term (current) drug therapy
CPT/HCPCS: 36415; 80053; 85025; 85610; 85730; 99283

== ENCOUNTER 2023-10-16 08:31 | Outpatient (CLI) | payer MEDICARE, SELFPAY ==
[2023-10-16 09:28] LABS: Basophils Absolute Auto 0.1 K/mm3 (0.0-0.1); Basophils Percent Auto 1.4 % (0.2-1.2); Eosinophils Absolute Auto 0.2 K/mm3 (0-0.3); Eosinophils Percent Auto 4.1 % (0-4.4); Hematocrit 33.8 % (37.0-47.0); Hemoglobin 10.9 g/dL (12.0-15.0); Immature Granulocyte Absolute 0.02 K/mm3 (0.00-0.031); Immature Granulocyte Percent A 0.4 % (0-0.5); Lymphocytes Absolute Auto 1.91 K/mm3 (0.9-3.2); Lymphocytes Percent Auto 39.1 % (18.3-44.2); Mean Corpuscular HGB Conc 32.2 g/dl (32-36); Mean Corpuscular Hemoglobin 35.2 pg (26-34); Mean Platelet Volume 9.4 fl (7.4-10.4); Monocytes Absolute Auto 0.4 K/mm3 (0.1-0.6); Monocytes Percent Auto 8.6 % (2.6-8.5); Neutrophils Absolute Auto 2.3 K/mm3 (1.3-6.7); Neutrophils Percent Auto 46.4 % (45.5-73.1); Platelet Count Result 358 k/mm3 (150-375); White Blood Count 4.9 K/mm3 (4.5-10.0)
[2023-10-16 13:30] LABS: Iron 168 ug/dL (37-170)
[2023-10-16 13:31] LABS: Anion Gap 9 mmol/L (4-12); Blood Urea Nitrogen 10 mg/dL (7-17); Calcium 9.7 mg/dL (8.4-10.2); Carbon Dioxide 28 mmol/L (22-30); Chloride 102 mmol/L (98-107); Estimated Glomerular Filt Rate > 60; Glucose 97 mg/dL (65-110); Potassium 4.2 mmol/L (3.4-5.0); Sodium 139 mmol/L (137-145)
[2023-10-16 13:40] LABS: Percent Iron Saturation 52 % (20-50)
[2023-10-16 14:39] LABS: Folic Acid 15.9 ng/mL (2.76->20); Vitamin B12 > 1000.0 pg/mL (239-931)
[2023-10-20 08:09] LABS: Methylmalonic Acid 89 nmol/L (85-423)
[2023-10-24 16:38] LABS: Soluble Transferrin Receptor 1.97 mg/L (0.76-1.76)
== END 2023-10-16 08:32 | disposition home or self-care (01) ==
PROVIDERS: PCP Family Medicine; Visit Provider Internal Medicine Hematology & Oncology
DX: D64.9 Anemia, unspecified (principal)
CPT/HCPCS: 36415; 80048; 82607; 82728; 82746; 83540; 83550; 83921; 84238; 85025

== ENCOUNTER 2024-02-18 07:04 | Outpatient (CLI) | payer MEDICARE, SELFPAY ==
[2024-02-18 07:59] LABS: Basophils Absolute Auto 0.1 K/mm3 (0.0-0.1); Basophils Percent Auto 1.6 % (0.2-1.2); Eosinophils Absolute Auto 0.2 K/mm3 (0-0.3); Eosinophils Percent Auto 3.4 % (0-4.4); Hematocrit 33.1 % (37.0-47.0); Hemoglobin 10.8 g/dL (12.0-15.0); Immature Granulocyte Absolute 0.03 K/mm3 (0.00-0.031); Immature Granulocyte Percent A 0.5 % (0-0.5); Lymphocytes Absolute Auto 2.25 K/mm3 (0.9-3.2); Lymphocytes Percent Auto 40.5 % (18.3-44.2); Mean Corpuscular HGB Conc 32.6 g/dl (32-36); Mean Corpuscular Hemoglobin 35.3 pg (26-34); Mean Corpuscular Volume 108.2 fl (80-100); Mean Platelet Volume 9.6 fl (7.4-10.4); Monocytes Absolute Auto 0.5 K/mm3 (0.1-0.6); Monocytes Percent Auto 9.7 % (2.6-8.5); Neutrophils Absolute Auto 2.5 K/mm3 (1.3-6.7); Neutrophils Percent Auto 44.3 % (45.5-73.1); Platelet Count Result 355 k/mm3 (150-375); Red Blood Count 3.06 M/mm3 (4.2-5.4); Red Cell Distribution Width 16.2 % (11.5-14.5); White Blood Count 5.6 K/mm3 (4.5-10.0)
[2024-02-18 08:34] LABS: Platelet Estimate Adequate (Adequate)
[2024-02-18 08:35] LABS: Ovalocytes 1+
[2024-02-18 08:39] LABS: Macrocytosis 1+ (NORMAL); Schistocytes None Seen
[2024-02-18 09:53] LABS: Anion Gap 5 mmol/L (4-12); Blood Urea Nitrogen 12 mg/dL (7-17); Calcium 9.6 mg/dL (8.4-10.2); Carbon Dioxide 29 mmol/L (22-30); Chloride 104 mmol/L (98-107); Estimated Glomerular Filt Rate > 60; Glucose 96 mg/dL (65-110); Potassium 4.1 mmol/L (3.4-5.0); Sodium 138 mmol/L (137-145)
[2024-02-18 10:52] LABS: Iron 169 ug/dL (37-170)
[2024-02-18 10:58] LABS: Folic Acid 17.7 ng/mL (2.76->20); Vitamin B12 > 1000.0 pg/mL (239-931)
[2024-02-18 11:02] LABS: Percent Iron Saturation 53 % (20-50)
== END 2024-02-18 07:05 | disposition home or self-care (01) ==
PROVIDERS: PCP Family Medicine; Visit Provider Internal Medicine Hematology & Oncology
DX: D64.9 Anemia, unspecified (principal)
CPT/HCPCS: 36415; 80048; 82607; 82746; 83540; 83550; 85025

== ENCOUNTER 2024-03-11 08:20 | Emergency (ER) | payer MEDICARE, SELFPAY ==
--- NOTE | ~2024-03-11 | XR_ITS ---
EXAMINATION: XR chest 2V 03/11/2024 09:01 INDICATION: Cough PROCEDURE: 2 view chest COMPARISON: 04/14/2018 FINDINGS: Bibasilar subsegmental atelectasis. No focal pneumonia, edema, significant effusion or pneu mothorax. The cardiomediastinal silhouette is within normal limits. There are no pleural effusions. There is no pneumothorax suspected. There is a right shoulder arthroplasty. There is scoliosis of t he lumbar spine partially visualized with severe lumbar spondylosis. IMPRESSION: 1: Bibasilar atelectasis. Reviewed, dictated and finalized at location B. BALLER IMPRESSION: 1: Bibasilar atelectasis.
[2024-03-11 08:33] VITALS: BP 119/71; PULSE 89; RESP 18; TEMP 36.3; O2SAT 100
--- NOTE | 2024-03-11 08:45 | ED_ITS ---
HPI - URI/Sore Throat General Chief Complaint: Upper Respiratory Infection Stated Complaint: Cough Time Seen by Provider: 03/11/24 08:45 Source: patient Mode of arrival: ambulatory Limitations: no limitations History of Present Illness HPI Narrative: 84 y/o female presented for c/o cough x3 days, last night it became 'deep.' Cough is nonproductive. Denies nasal congestion, sob, wheezing, n/v/d/f/c. Taking robitussin. Related Data Home Medications ?Medication ?Instructions ?Recorded ?Confirmed ?Last Taken ?Type famotidine-Ca carb-mag hydrox 10 1 tablet PO BID PRN indigestion 03/06/22 12/30/23 Unknown History mg-800 mg-165 mg chewable tablet (Pepcid Complete) atorvastatin 10 mg tablet 10 mg PO HS 09/04/23 12/30/23 Unknown History mecobalamin (vitamin B12) 500 mcg 500 mcg PO . every other day 12/30/23 12/30/23 Unknown History chewable tablet Allergies Allergy/AdvReac Type Severity Reaction Status Date / Time diphenhydramine (From Allergy Intermediate Hallucinati Verified 03/11/24 08:41 Benadryl) ng Inhaled Anesthetics (Halogen AdvReac Severe Nausea and Verified 03/11/24 08:41 Based) Vomiting meperidine AdvReac Intermediate Nausea and Verified 03/11/24 08:41 Vomiting Review of Systems Review of Systems: CONSTITUTIONAL: Denies body aches, fever, chills, or sweats. EYES: Denies visual changes, redness, or discharge. ENT: Denies rhinorrhea, congestion, sore throat, or otalgia. CARDIOVASCULAR: Denies chest pain, palpitations, or edema. RESPIRATORY: Reports cough, denies sob, wheezing. GASTROINTESTINAL: Denies abdominal pain, nausea, vomiting, or diarrhea. NEUROLOGIC: reports headache All systems reviewed & are unremarkable except as noted in HPI and below PMFSH Past Medical History Medical History Osteoarthritis of left hip Elevated fasting glucose Fasting glucose 104 with hemoglobin A1c 5.7 on 03/12/2022. glucose 99 with hemoglobin A1c 5.7. Fasting glucose 103 on 04/15/2023. nonfasting glucose 106 with hemoglobin A1c 5.5 on 08/12/2023. Glucose 97 on 10/16/2023. Peripheral neuropathy history of peripheral neuropathy in the feet causing problems with balance Colon cancer screening colonoscopy with Dr. Perez on 05/29/2016 unremarkable except for diverticulosis. Ear itching Arthritis of left hip UTI (urinary tract infection) Dysuria Trigger finger, right ring finger Arthritis, lumbar spine At moderate risk for fall Osteopenia after menopause DEXA bone density study on 08/19/2021 with T-score normal at the spine at 1.346 with -2.1 at the left hip with osteopenia Chronic low back pain with right-sided sciatica GERD (gastroesophageal reflux disease) Mixed hyperlipidemia Total cholesterol 174, triglycerides 64, HDL 56, LDL 87 on 03/12/2022. Overweight (BMI 25.0-29.9) (~02/09/23) Hallux valgus (acquired), right foot Acquired hallux valgus of left foot VINICIUS (obstructive sleep apnea) Osteoporosis Lower back pain Screening mammogram, encounter for normal mammogram 08/11/2022. normal mammogram 08/27/2023. Primary osteoarthritis involving multiple joints Post-menopause Dyslipidemia Anemia Lymphocytosis Cyst of ear canal Ear canal mass Vaccine counseling Other specified personal risk factors, not elsewhere classified COVID-19 vaccine series completed Unsteady gait IFG (impaired fasting glucose) Fasting glucose 104 with hemoglobin A1c 5.7 on 03/12/2022. Arthritis of right shoulder region Prediabetes Right hip pain Sleep apnea Headache, migraine Hearing loss Cataract BMI 27.0-27.9,adult Arthritis of left shoulder region BMI 26.0-26.9,adult Elevated cholesterol Carpal tunnel syndrome Surgical History Surgical History History of left hip replacement 09/01/23 History of shoulder replacement reverse right shoulder 2020 Dr. Lea H/O cataract extraction H/O arthroscopy of knee H/O lumpectomy H/O carpal tunnel repair History of section History of hip replacement Right hip 2018 History of knee replacement 2017 & 2016 Family History Family History Mother Acute myocardial infarction, Onset Age: 62 Cancer Father , 42 Bleeding ulcer No problems noted. Other Alcoholism Arthritis CHF (congestive heart failure), NYHA class I Family history of malignant neoplasm of breast Hearing loss Heart disease Hypertension Ulcer Social History Social History Smoking packs per day: 1 Smoking cigarettes per day: 20.0 Years smoked: 18 Smoking pack-years: 18.00 Smoking status: Former smoker Tobacco type: cigarettes Second hand tobacco smoke exposure: No Smoking end date: 03/30/81 Additional smoking assessment comments: DENIES ANY FORM OF TOBACCO USE Alcohol intake: current Drinks per week: 1 Alcohol use details: rarely- beer, gin, divehi whiskey Substance use: never Substance use type: does not use Do You Feel Safe in your Home?: Yes Lack of Transportation: No Lack of Food: Never True Current Housing: I Have Housing Concerned About Future Housing: No Difficulty Paying Gas/Electric Bills: No Difficulty Paying for Meds: No Currently Unemployed: No Education: Master's Degree or Higher Difficulty w/ Childcare or Family Care: No Living arrangements: alone Occupation/Education: retired 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 Please see nursing chart for further information. There is no relevant family history pertinent to the presenting complaint Exam Narrative: GENERAL: Well-appearing, in no acute distress. EYES: EOMI. No redness or drainage. Conjunctivae normal. ENT: Mucous membranes pink and moist. No rhinorrhea. TMs normal bilaterally. Throat normal. Uvula midline. NECK: Normal AROM. Supple. CHEST: No respiratory distress. Lungs clear to all lewis. HEART: Regular rate and rhythm. No murmur appreciated. ABDOMEN: Soft, nontender, nondistended, normal active bowel sounds. EXTREMITIES: Normal range of motion. No edema. SKIN: Warm, dry, no rash. Capillary refill normal. Normal skin turgor. NEURO: Alert and oriented x3. Gait steady. Course Course Emergency Course: Patient is aware of diagnosis, understands and agrees to treatment plan. Anticipatory guidance given. Patient agrees to follow-up as directed and is aware of reasons to seek care at the emergency department. Portions of this record may have been created with voice recognition software Level of Care: Express Care Visit Vital Signs Vital signs: Vital Signs Temperature 97.3 F L 03/11/24 08:33 Pulse Rate 89 03/11/24 08:33 Respiratory Rate 18 03/11/24 08:33 Blood Pressure 119/71 03/11/24 08:33 Pulse Oximetry 100 03/11/24 08:33 Oxygen Delivery Room Air 03/11/24 08:33 Temperature 97.3 F L 03/11/24 08:33 Pulse Rate 89 03/11/24 08:33 Respiratory Rate 18 03/11/24 08:33 Blood Pressure 119/71 03/11/24 08:33 Pulse Oximetry 100 03/11/24 08:33 Oxygen Delivery Room Air 03/11/24 08:33 MDM - URI/Sore Throat MDM Narrative Medical decision making narrative: Discussed physical exam findings and CXR, reviewed Rx. Advised supportive measures and signs/symptoms to go to the ER. Pt is appropriate for outpt treatment and f/u. Differential Diagnosis Differential diagnosis: Likely upper respiratory infection, sinusitis, viral infection, bronchitis and influenza Imaging Data Radiologist's impression: Patient: Brenda Maher : 1940 MR#: [id number] Age: 84 Acct:[id number] Loc: [id number] ADM Date: 03/11/24Attending Dr: Ordering Physician: Laura Castanon APRN Date of Service: 03/11/24 Procedure(s): XR chest 2V Accession Number(s): [id number] cc: Laura Castanon APRN; Gordo Huntley MD~ EXAMINATION: XR chest 2V 03/11/2024 09:01 INDICATION: Cough PROCEDURE: 2 view chest COMPARISON: 04/14/2018 FINDINGS: Bibasilar subsegmental atelectasis. No focal pneumonia, edema, significant effusion or pneumothorax. The cardiomediastinal silhouette is within normal limits. There are no pleural effusions. There is no pneumothorax suspected. There is a right shoulder arthroplasty. There is scoliosis of the lumbar spine partially visualized with severe lumbar spondylosis. IMPRESSION: 1: Bibasilar atelectasis Discharge Plan Discharge Clinical Impression: Acute lower respiratory infection Patient Disposition: Home, Self-Care Condition: Stable Instructions: Antibiotic Form, Pneumonia (ED), Atelectasis (ED) Additional Instructions: Pneumonia is a lung infection that can cause a fever, cough, and trouble breathing. How it spreads: When someone with bacterial pneumonia coughs, sneezes, or talks, they release respiratory droplets into the air that can be inhaled by others.?You can also get pneumonia by touching a contaminated surface or object and then touching your mouth or nose. You're generally contagious for around 48 hours after starting antibiotics and your fever goes away.? To prevent the spread of pneumonia, you can:? ? Get vaccinated? ? Wash your hands often with soap and water for 20 seconds? ? Cover your mouth with a tissue when you cough or sneeze? ? Avoid people who are already sick with pneumonia? ? Stay home when you have pneumonia Take antibiotics as directed until complete. eat small frequent meals. Get lots of rest and drink fluids. Alternate Tylenol and ibuprofen for pain/fever [id number] cough medication can cause drowsiness, take according to package directions If you have nasal congestion, you can take Zyrtec, Claritin along with Flonase spray Call your Primary Care Doctor and make a follow-up appointment in 3 days. Go to the ER for worsening symptoms or concerns Patient Language: Czech Prescriptions: New codeine-guaifenesin [Guaifenesin AC] 10-100 mg/5 mL liquid 10 ml PO Q8H PRN (Reason: cough) Qty: 120 0RF azithromycin [Zithromax Z-Joaquin] 250 mg tablet See Rx Instructions .ROUTE .COMPLEX Qty: 6 0RF Rx Instructions: For 250 mg dose pack: take 500 mg today (day 1), then 250 mg for 4 days (days 2-5) No Action Pepcid Complete 10-800-165 mg tablet,chewable 1 tablet PO BID PRN (Reason: indigestion) mecobalamin (vitamin B12) 500 mcg tablet,chewable 500 mcg PO . every other day atorvastatin 10 mg Tablet 10 mg PO HS acetaminophen [Tylenol Extra Strength] 500 mg tablet 500 mg PO Q4H Qty: 100 0RF Follow-up/Referrals: Gordo Huntley MD [Primary Care Provider] -
== END 2024-03-11 09:37 | disposition home or self-care (01) ==
PROVIDERS: Emergency Provider Nurse Practitioner Family; PCP Family Medicine
DX: R05.9 Cough, unspecified (principal); J22 Unspecified acute lower respiratory infection; Z87.891 Personal history of nicotine dependence; M16.12 Unilateral primary osteoarthritis, left hip; G62.9 Polyneuropathy, unspecified; M47.816 Spondylosis without myelopathy or radiculopathy, lumbar region; M85.80 Other specified disorders of bone density and structure, unspecified site; K21.9 Gastro-esophageal reflux disease without esophagitis; E78.2 Mixed hyperlipidemia; Z81.0 Family history of intellectual disabilities; E78.5 Hyperlipidemia, unspecified; R73.01 Impaired fasting glucose; M19.012 Primary osteoarthritis, left shoulder; E78.00 Pure hypercholesterolemia, unspecified; Z96.643 Presence of artificial hip joint, bilateral
CPT/HCPCS: 71046; 99213; G0463

== ENCOUNTER 2024-07-22 07:17 | Outpatient (CLI) | payer MEDICARE, SELFPAY ==
--- OUTSIDE RECORDS SUMMARY | 2024-07-22 07:20 | XMS_ITS | Continuity of Care Document ---
Author Organization [facility] Address [address] [place] [address] Phone Care Team Providers Care Tank Builder Name Role Phone Scout Lea MD Unavailable Unavailable Allergies, Adverse Reactions, Alerts Substance Reaction Status Criticality No Known Allergies Active No Inform ation Medications Medication Instructions Dosage Effective Dates (start - stop) Status Comments amoxicillin 500 mg tablet - Active methylprednisolone 4 mg tablets in a dose pack - Active Shingrix (PF) 50 mcg/0.5 mL intramuscular suspension, kit - Active cyanocobalamin (vit B-12) 1,000 mcg tablet - Active atorvastatin 10 mg tablet take 1 tablet by oral route every day 10 MG - Active diclofenac sodium 75 mg tablet,delayed release take 1 tablet by oral route 2 times every day 75 MG - Active Procedures Procedure Date X-ray exam shoulder complete, minimum 2 views Office/outpatient visit,est low 2021 Office/outpatient visit,est, mod 2020 Global/Postop followup visit X-ray exam shoulder complete, minimum 2 views Global/Postop followup visit X-ray exam shoulder minimum 2 views Office/outpatient visit,new, mod 2020 Advance Directives Directive Yes / No Effective Date File Name No Information Encounters Encounter Description Practice Location Reason(s) For Visit Diagnoses Date Provider Providers Copied on Encounter Office/outpa tient visit,est, low [facility], [address] [address], [place], [place], [id number], [place] tel:[phone] [facility] Right shoulder (chief complaint) Presence of right artificial shoulder joint 2 Leonora Butterfield. [address] [facility] [address], [place], [place], [id number] , [place]. tel: [phone] Referring Provider: Scout Reilly, [address] [facility] [address] [facility], [place], [address] . tel:[phone] [facility], [address] [address], [place], [place], [id number], [place] [phone] [facility] Presence of right artificial shoulder joint 1 Leonora Butterfield. [address] [facility], [address] [address], [place], [place], [id number] , [place]. tel: [phone] [facility], [address] [address], [place], [place], [id number], [place] tel:[phone] [facility] Presence of right artificial shoulder joint 1 Leonora Butterfield. [address], [address] [address], [place], [place], [id number] , [place]. tel: [phone] Office/outpa tient visit,est, mod [facility], [address] [address], [place], [place], [id number], [place] [phone] [facility] Right shoulder (chief complaint) Presence of right artificial shoulder joint 1 Leonora Butterfield. [address] [facility], [facility] [address], [place], [place], [id number] , [place]. tel: [phone] Referring Provider: Scout Reilly, [address] [facility] [address] [facility], [place], [address] . tel:[phone] [facility], [address] [address], [place], [place], [id number], [place] [phone] [facility] Right shoulder (chief complaint) Presence of right artificial shoulder joint May-0 7-202 1 Leonora Butterfield. [address], [address] [address], [place], [place], [id number] , . tel:[phone] Referring Provider: Scout Reilly, [address] [place] [address], [place], [address] . tel:[phone] [facility], [address] [place] [address], [id number], tel:[phone] [facility] Right shoulder (chief complaint) Presence of right artificial shoulder joint 1 Leonora Butterfield. [address] [place] [address], [place], [place], [id number] , [place]. tel:[phone] Referring Provider: Scout Reilly, [address] [place] [address], [place], [address] . tel:[phone] Office/outpa tient visit,[facility], [facility], [address] [place] [address], [id number], tel:[phone] [facility] right shoulder (chief complaint) Pain in right shoulderPrimary osteoarthritis, right shoulderComplete rotatr-cuff tear/ruptr of r shoulder, not trauma 1 Leonora Butterfield. [address] [place] [address], [id number] , . tel:[phone] Referring Provider: Scout Reilly, [address] [place] [address], [place], [address] . tel:[phone] Family History Family Member Type Diagnosis Age At Onset Mother Problem (finding) Osteoarthritis Mother Problem (finding) Heart Disease Father Problem (finding) Heart Disease Payers Payer name Insurance type Covered republican ID Cathy akbar(s) [facility] Medicare Solutions CI [id number] Social History Type Description Quantity Date Captured Comments Alcohol Use Details Unknown Caffeine Use Details Unknown Tobacco Use Status Ex-smoker Smoking Status Former smoker Non-Smoking Tobacco Use Details : No Details Available : No Details Available Sex Female Vital Signs Date / Time: Height Weight BMI Pulse Rate Blood Pressure Temperature Respiratory Rate Body Surface Area Head Circumference Head Circ. Percentile Wt./Hemanth. Percentile BMI percentile Pulse Ox Inhaled Ox 2:35 PM 61.00 in 61.689 kg (136.00 lbs) 25.7 0 kg/m eter (2) Chief Complaint And Reason For Visit From encounter dated '11/13/2021 14:00'. Right shoulder (chief complaint). Description: Patient comes in today for her yearly follow up of her right reverse total shoulder arthroplasty Reason For Referral Reason For Referral No Information Plan Of Treatment Date Type Action Status Referral Ordered: X-ray exam shoulder complete, minimum 2 views RT ordered Referral Ordered: X-ray exam shoulder minimum 2 views RT ordered History Of Present Illness Encounter Date Complaint History Of Prese nt Illness Right shoulder Patient comes in today for her yearly follow up of her right reverse total shoulder arthroplasty Right shoulder Patient comes in today for follow up of her right reverse total shoulder arthroplasty Right shoulder Patient comes in today for follow up of her right reverse total shoulder arthroplasty Right shoulder Patient comes in today for follow up of her right reverse total shoulder arthroplasty right shoulder Fredna comes in the office today for her right shoulder. Functional Status Date Functional Assessmen t No Information Instructions Date Instruction Additional Infor mation No Information Assessments Type Assessment Date assessment Presence of right artificial daryn ulder joint Patient Care Teams Name Effective Dates (start - stop) Status Members No Information
--- OUTSIDE RECORDS SUMMARY | 2024-07-22 07:20 | XMS_ITS | Data Portability ---
Author Organization [place] [facility], Main Office Address [address] [place] [address] Care Team Providers Care Claim Clinician Name Role Phone PAULINE MAURICIO Primary Care Provider [phone] MIC HAIRSTON Referring Provider Assessment Encounter Date Assessment Date Assessment LastModified by Organization Details LastModified Time 04/24/2023 04/24/2023 Impression: 1. 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 She would like to undergo total hip replacement as she is seeing her symptoms progressively worsened since July of 2022. I recommended that she try using a cane in the right hand for now. I have given her the Ortho info handout on total hip arthroplasty as well as the direct anterior approach pamphlet. She is going to be seeing her manager creative in the next couple of weeks and will need his report. I advised her that since she is 83, I would also recommend that she be seen by a supervisor sewer maintenance before surgery. This would be for cardiac risk assessment. I have discussed with her that the risks of cardiac problems and mortality are higher in Octogenarians. She is going to start working on that now. I explained that I am not scheduling surgeries at the moment because I am going to be finishing my employment at [employer] and starting employment at [employer] June 28. I discussed with her that if she would like to have her hip replacement done more quickly she may wish to see 1 of the other orthopedic surgeons at 2 hip replacement surgery. She would like to wait. She was very happy with a direct anterior approach on the right side. The I explained that she could see me in the weeks of June if she would like. 2. Patient has severe lumbar spondylosis. I explained that unfortunately they hip replacement is not going to address her back pain or what seems to be radicular pain perhaps that radiates down the left leg occasion. If that symptom becomes worse she may need further evaluation. 45 minutes were spent total care this patient with more than half the time spent in [id number] care. Not available 04/26/2023 13:01:10 Plan of Treatment Reminders Order Date Submit Date Provider Last Modified By Organization Details Last Modified Time Details Appointments None recorded. Lab None recorded. Referral None recorded. Procedures None recorded. Surgeries None recorded. Imaging XR, hip, unilateral 2023 [id number] [email or web address] [facility] [place], [address], [place], [address], 11:37:43 XR, lumbar spine 2023 024 [email or web address] [facility] [place], [address], [place], [address], 11:37:43 Medication Orders None recorded. Patient TargetsNo targets recorded. Patient InstructionsNo instructions recorded. Reason for Referral None Reported. Results Created Date Observation Date Name Description Value Unit Range Abnormal Flag Note LastModifiedBy Organization Detail LastModifiedTime 04/24/19 24 XR, hip, unila teral No observ ation record ed. [facility] [place] [address], [place], [address], 04/26/2023 12:54:26 04/24/19 24 XR, lumba r spine No observ ation record ed. [facility] [place] [address], [place], [address], 04/26/2023 12:56:59 Result Notes None recorded. Problems Name Problem SNOMED Code Status Onset Date Resolution Date Notes Provider Name and Address Organization Details Recorded Time Pain of left hip joint 5057214418534 00 Active 2023 RENAY Cruz, [place] [employer] [facility] 09:36:32 Preoperativ e cardiovascu lar examination Active 2023 Manisha Lay, CONDENSER TESTER null, [facility] 11:36:04 Problem Notes None recorded. Procedures Surgical History Date Name Laterality Status Provider Name and Address Organization Details Recorded Time Carpal tunnel surgery completed Nimishaavni Morris [facility] 04/24/2023 09:35:03 Knee Surgery completed Nimishaavni Morris [facility] 04/24/2023 09:35:10 Hip surgery completed Nimisha Green [facility] 04/24/2023 09:35:18 Imaging Results Imaging Date Name Status LastModified by Organiz ation Details LastModified Time 04/24/2023 XR, hip, unilateral completed [facility] [place] [address], [place], [address], 04/26/2023 12:54:26 04/24/2023 XR, lumbar spine completed [facility] [place] [address], [place], [address], 04/26/2023 12:56:59 Procedure Notes None recorded. Medical Equipment None Reported. Medications Name Sig Start Date Stop Date Status Note LastModified by Organization Details LastModified Time amoxicillin 500 mg capsule 04/24 completed Not Available Not Available Not Available atorvastati n 20 mg tablet 04/24 completed Not Available Not Available Not Available atorvastati n 10 mg tablet 04/24 completed Not Available Not Available Not Available azithromyci n 250 mg tablet 04/24 completed Not Available Not Available Not Available benzonatate 200 mg capsule 04/24 completed Not Available Not Available Not Available hydrocodone 5 mg-acetamin ophen 325 mg tablet 04/24 completed Not Available Not Available Not Available atovaquone 250 mg-proguani l 100 mg tablet 04/24 completed Not Available Not Available Not Available prednisone 20 mg tablet 04/24 completed Not Available Not Available Not Available Zomig 2.5 mg tablet 04/24 completed Not Available Not Available Not Available ciprofloxac in 500 mg tablet 04/24 completed Not Available Not Available Not Available omeprazole 40 mg capsule,del ayed release 04/24 completed Not Available Not Available Not Available tramadol 50 mg tablet 04/24 completed Not Available Not Available Not Available meloxicam 7.5 mg tablet 04/24 completed Not Available Not Available Not Available oxycodone-a cetaminophe n 5 mg-325 mg tablet 04/24 completed Not Available Not Available Not Available amoxicillin 875 mg tablet 04/24 completed Not Available Not Available Not Available famotidine 20 mg tablet 04/24 completed Not Available Not Available Not Available diclofenac potassium 50 mg tablet 04/24 completed Not Available Not Available Not Available diclofenac sodium 75 mg tablet,osmel yed release 04/24 completed Not Available Not Available Not Available polyethylen e glycol 3350 17 gram/dose oral powder 04/24 completed Not Available Not Available Not Available levofloxaci n 500 mg tablet 04/24 completed Not Available Not Available Not Available levofloxaci n 750 mg tablet 04/24 completed Not Available Not Available Not Available zolpidem 10 mg tablet TK 1 T PO QD HS 04/24 completed Not Available Not Available Not Available methylpredn isolone 4 mg tablets in a dose pack FOLLOW PACKAGE DIRECTION S 04/24 completed Not Available Not Available Not Available hydrocodone 10 mg-chlorphe niramine 8 mg/5 mL oral susp extend.rel 12hr 04/24 completed Not Available Not Available Not Available ipratropium bromide 42 mcg (0.06 %) nasal spray 04/24 completed Not Available Not Available Not Available cefdinir 300 mg capsule 04/24 completed Not Available Not Available Not Available amoxicillin 875 mg-potassiu m clavulanate 125 mg tablet 04/24 completed Not Available Not Available Not Available amoxicillin 500 mg-potassiu m clavulanate 125 mg tablet TAKE 1 TABLET BY MOUTH EVERY 12 HOURS 04/24 completed Not Available Not Available Not Available Lexapro 10 mg tablet 04/24 completed Not Available Not Available Not Available nitrofurant oin monohydrate /macrocryst als 100 mg capsule TAKE 1 CAPSULE BY MOUTH EVERY 12 HOURS FOR 5 DAYS 04/24 completed Not Available Not Available Not Available ProAir HFA 90 mcg/actuati on aerosol inhaler 2 PUFFS INHALED PO Q 4 TO 6 H PRF SOB 04/24 completed Not Available Not Available Not Available Xarelto 10 mg tablet TK 1 T PO QD FOR 12 DAYS 04/24 completed Not Available Not Available Not Available PONY ROUGHER-GSTN 27 mg-20 mg-200 unit capsule TK 1 C PO Q 12 H 04/24 completed Not Available Not Available Not Available Virt-Onesimo 2.5 mg-25 mg-1 mg tablet 04/24 completed Not Available Not Available Not Available Fluzone High-Dose 5358-7343 (PF) 180 mcg/0.5 mL intramuscul ar syringe 04/24 completed Not Available Not Available Not Available Virtussin AC 10 mg-100 mg/5 mL oral liquid 04/24 completed Not Available Not Available Not Available Fluzone High-Dose 2014- (PF) 180 mcg/0.5 mL intramuscul ar syringe 04/24 completed Not Available Not Available Not Available Vivotif 2 billion unit capsule,del ayed release 04/24 completed Not Available Not Available Not Available Fluzone High-Dose 0844-5879 (PF) 180 mcg/0.5 mL intramuscul ar syringe ADM 0.5ML IM UTD 04/24 completed Not Available Not Available Not Available Yuvafem 10 mcg vaginal tablet 04/24 completed Not Available Not Available Not Available Fluzone High-Dose 7898-4069 (PF) 180 mcg/0.5 mL intramuscul ar syringe ADM 0.5ML IM UTD 04/24 completed Not Available Not Available Not Available BinaxNOW COVID-19 Ag Self Test kit TEST DIRECTED TODAY 04/24 completed Not Available Not Available Not Available Vitals Date Recorded Body height Body mass index (BMI) Body weight Provider Name and Address Organization Details Last Updated DateTime 04/24/2023 153.67 cm 27.7 kg/m2 11272.3 g RENAY Cruz [place] [facility] 04/24/2023 09:40:37 Social History None recorded. Functional Status None recorded. Mental Status None recorded. Family History Relationship Description Onset Age of this Age Resolved Age Notes LastModified by Organization Details LastModified Time Father Heart disease Not available 2023 09:34:22 Mother Heart disease [email or web address] Not available 2023 09:34:22 Medical History Condition Response ARTHRITIS Y ANEMIA/BLOOD DISORDER Y Gynecological HistoryNo gynecological history recorded. Obstetrics History GPAL:G 0 P 0 0 0 0 Past Encounters Encounter ID Performer Location Encounter Start Date Encounter Closed Date Diagnosis/Indication Diagnosis SNOMED-CT Code Diagnosis ICD10 Code Diagnosis Note [id number] Deuce Minaya MD [facility] [place] [address] [place] [address] 04/24/2023 08:59:38 04/27/2023 11:37:43 Pain of left hip joint 5003168428 93646 M25.552 Health Concerns Section Related Observation LastModified by Organization Detai ls LastModified Time None Recorded Concern Status LastModified by Organization Details LastModified Time None Recorded Advance Directives Directive None Recorded Payers Encounter Date Sequence Insurance Name Policy Number Policy Srivastava Covered Member ID Srivastava Member ID Guarantor Name 04/24/2023 1 [employer] (MEDICARE REPLACEMENT PPO) [id number] 1 Fredna C Gunnar [id number] Brenda C Gunnar Notes Date Note Type Note Provider Name and Address Organization Details Recorded Time 04/24/2023 text/html Patient is a 83-year-old female who was a patient of Dr. Wangus was referred by Dr. Hairston for management of her left hip arthritis. She has had significant pain left hip since July last year. It developed spontaneously. She has to use a sock aid to apply a sock and shoe. She limbs sometimes. She remains very active. She works as a volunteer at the hospital. She uses Tylenol Arthritis occasion. She tries to avoid taking much medication. She has had physical therapy for hip. She has tried using a cane. She uses it in her left hand mainly so that she leaves her right hand free since she is right handed. I have shown her how to use the cane in the right hand today and I think that will give her better relief for the time being. She has lower back pain off and on. Sometimes she feels pain from the left buttock that travels down to the mid anterior fonseca. Worst pain and most prevalent pain is pain in the medial proximal thigh. 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 She has seen a neurologist about her balance difficulties and had a CT scan the brain and it was felt that her balance difficulties are primarily due to the neuropathy In her feet. Her past history is significant for right total hip arthroplasty with a direct anterior approach with Dr. Hairston in 2017. She would like to be considered for total hip replacement on the left side now She underwent reverse right shoulder arthroplasty by Dr. Calderon in 2020 and did well with that. She has had both of her knees replaced in [address] Hairston Her past history is significant for anemia a propensity for easy bleeding she has been advised to avoid aspirin and aspirin type medications because of bleeding problems. After total knee replacement she had acute GI bleeding from the rectum and was hospitalized for 1 day told that the bleeding was from her stomach and to avoid nonsteroidal anti-inflammatory medications. She also has a history of megaloblastic anemia. She sees Dr. Disla for that and has an appointment coming up Deuce Minaya MD [address] [place] [address], [address] [address], [place], [address], [facility] 04/26/2023 13:01:27 OBGyn Episode No OBEpisode recorded.
--- OUTSIDE RECORDS SUMMARY | 2024-07-22 07:20 | XMS_ITS | Clinical Summary ---
Author Organization [facility] Address [address] [place] [address] Phone Care Team Providers Care Defensive Fire Control Systems Operator Name Role Phone Gordo Huntley MD Primary Care Provider [phone] Allergies Active Allergy Reactions Criticality Noted Date Comments Diphenhydramine Hallucination Medium 06/05/2020 Medications cyanocobalamin 1,000 mcg Tablet Active atorvastatin (LIPITOR) 10 mg tablet Take 10 mg by mouth daily. Active OTHER Algae KEVIN - calcium sea weed supplement Active Active Problems Problem Noted Date Diagnosed Date Macrocytic anemia 04/11/2021 Encounters Date Type Department Care Team Description 05/17/2024 External Device Data ST[facility] ABSTRACTION Provider, Abstract 04/26/2024 External Device Data [facility] ABSTRACTION Provider, Abstract from Last 3 Months Family History Medical History Relation Name Comments Heart Disease Father Heart Disease Mother Relation Name Status Comments Father Mother Son Alive Social History Tobacco Use Types Packs/Day Years Used Date Smoking Tobacco: Never Smokeless Tobacco: Never Tobacco Cessation:Counseling Given: Not Answered Alcohol Use Standard Drinks/Week Comments Yes 0 (1 standard drink = 0.6 oz pur e alcohol) Comments Unknown Sex and Gender Information Value Date Recorded Sex Assigned at Not on file Legal Sex Female 11:32 AM PLANNING ASSISTANT Gender Identity Not on file Sexual Orientation Not on file Last Filed Vital Signs Vital Sign Reading Time Taken Comments Blood Pressure 103/69 03/02/2024 11:40 AM PLANNING ASSISTANT Pulse 86 03/02/2024 11:40 AM PLANNING ASSISTANT Temperature 36.3 C (97.3 F) 03/02/2024 11:40 AM PLANNING ASSISTANT Respiratory Rate 18 03/02/2024 11:40 AM PLANNING ASSISTANT Oxygen Saturation 95% 03/02/2024 11:40 AM PLANNING ASSISTANT Inhaled Oxygen Concentration - - Weight 65.8 kg (145 lb) 03/02/2024 11:40 AM PLANNING ASSISTANT Height 152.4 cm (5') 04/25/2021 11:26 AM PLANNING ASSISTANT Body Mass Index 28.32 04/25/2021 11:26 AM PLANNING ASSISTANT Plan of Treatment Upcoming Encounters Date Type Department Care Team (Late st Contact Info) Description 09/01/2024 10:15 AM CDT Office Visit [facility] [place] [address] [facility] [address] [place] [address] Raul Disla MD [address] [facility] [address] [place] [address] Health Maintenance Due Date Last Done Comments DTAP/TDAP/TD VACCINES (1 - Tdap) 1959 PNEUMOCOCCAL VACCINE 50+ YEA RS (1 of 1 - PCV) 01/06/1992 ZOSTER VACCINE (1 of 2) 01/06/1992 OSTEOPOROSIS SCREENING 2007 RSV VACCINE (60+ or ) (1 - 1-dose 75+ series) 2017 INFLUENZA VACCINE (#1) 2023 COVID-19 Vaccine (2023- season) 11/29/202304/2020, 04/26/2020 Insurance [employer] PPO MCR Care Teams Defensive Fire Control Systems Operator Relationship Specialty Start Date End Date Gordo Huntley MD [address] [place] [id number] PCP - General Family Practice 04/23/23
--- OUTSIDE RECORDS SUMMARY | 2024-07-22 07:20 | XMS_ITS | Clinical Summary ---
Author Organization [facility] Address [address], [facility] [address] [place] [address] Phone Care Team Providers Care Hr Director Name Role Phone Eloy Colby MD Primary Care Provider [phone] Calixto Perez DO Unavailable [phone] Allergies No known active allergies Medications polyethylene glycol (MIRALAX) Powder Use entire 255g bottle with 64oz of clear liquid as directed for colonoscopy prep. 255 g 0 6 Active Genistein-Zn Chelate-Vit D (INSURANCE SALES SUPERVISOR-GSTN) 27-20-200 MG-MG-UNIT Capsule Take 1 Cap by mouth 2 times daily. 12 7 Active ESTRADIOL VA by Vaginal route. Active atorvastatin (LIPITOR) 10 MG Tablet Take 10 mg by mouth daily. Active diclofenac (VOLTAREN) 75 MG Tablet Delayed Response Take 75 mg by mouth 2 times daily. Active Calcium Carb-Cholecalci ferol (CALCIUM 600 + D PO) Take 1 Tab by mouth daily. Active B Complex-C (SUPER B COMPLEX PO) Take 1 Tab by mouth daily. Active Famotidine (PEPCID PO) Take 1 Tab by mouth as needed. Active acetaminophen (TYLENOL) 325 MG Tablet Take 325 mg by mouth every 4 hours as needed. Active Immunizations Immunization Administration Dates Next Due Covid-19, Mrna, Lnp-s, PF, 1 00 mcg/0.5 mL Dose (Moderna) 05/29/2020,04/26/2020 Family History Medical History Relation Name Comments Heart Attack Father Heart Attack Mother Cancer Paternal Aunt Breast Relation Name Status Comments Father (Age 44) Mother (Age 62) Paternal Aunt Social History Tobacco Use Types Packs/Day Years Used Date Smoking Tobacco: Former Cigarettes Q uit: 03/30/1980 Alcohol Use Standard Drinks/Week Comments Yes 2 (1 standard drink = 0.6 oz pur e alcohol) Wine Comments Unknown Sex and Gender Information Value Date Recorded Sex Assigned at Not on file Legal Sex Female 11:41 PM CDT Gender Identity Not on file Sexual Orientation Not on file Plan of Treatment Health Maintenance Due Date Last Done Comments DEXA Bone Density 1940 Hepatitis C Virus (HCV) Screening 1940 TdaP Immunization 1940 Pneumococcal Immunization (50+ years) (1 of 1 - PCV) 01/06/1992 Zoster Immunization (1 of 2) 01/06/1992 Respiratory Syncytial Virus (RSV) Immunization (Adult) (1 - 1-dose 75+ series) 2017 Influenza Immunization (#1) 11/29/202303/2019, 12/15/2016, 01/06/2016, Additional history exists SARS-COV-2 Immunization ( season) 2023 07/01/2021, 01/22/2021, 05/29/2020, Additional history exists Hepatitis B Immunization Aged Out No longer eligible based on patient's age to complete this topic Meningococcal Immunization (ACWY) Aged Out No longer eligible based on patient's age to complete this topic Rotavirus Immunization Aged Out No lo nger eligible based on patient's age to complete this topic Insurance [facility] Care Teams Hr Director Relationship Specialty Start Date End Date Eloy Colby MD [address] [place] [address] PCP - General Digester Operator 09/11/15 Calixto Perez DO [address] [place] [address] Gastroenterology 09/11/15
--- OUTSIDE RECORDS SUMMARY | 2024-07-22 07:21 | XMS_ITS | Referral Summary ---
Author Organization [facility] Address [address] [place] [address] Care Team Providers Care Import Coordination And Production Head Name Role Phone Scout Lea MD Unavailable [phone] Gordo Huntley MD Primary Care Provider [phone] Allergies Active Allergy Reactions Criticality Noted Date Comments Diphenhydramine Hallucinations Medium 06/05/[address] (VOLTAREN) 75 mg EC tablet Take 75 mg by mouth daily as needed Active atorvastatin (LIPITOR) 10 mg tablet Take 1 tablet (10 mg total) by mouth daily Active UNABLE TO FIND Take 1 each by mouth daily Med Name: AlgaeCal Plus suppl Active oxyCODONE-aceta minophen (PERCOCET) 5-325 mg per tabletIndicatio ns:Pain Take 1 tablet every 4 hours as needed for pain 30 tablet 1 Active Additional Information Patient not taking.Reported on 10/18/2020 oxyCODONE-aceta minophen (PERCOCET) 5-325 mg per tabletIndicatio ns:Pain Take 1 tablet every 4 hours as needed for pain 30 tablet 1 Active Additional Information Patient not taking.Reported on 10/18/2020 aspirin 81 mg enteric coated tabletIndicatio ns:Deep Vein Thrombosis Prevention Take 1 tablet (81 mg total) by mouth 2 (two) times a day 1 Active Additional Information Patient not taking.Reported on 10/18/2020 vitamin B complex (VITAMINS B COMPLEX ORAL) Take 1 tablet by mouth daily Active acetaminophen (TYLENOL) 325 mg tablet Take 1 tablet (325 mg total) by mouth every 4 (four) hours as needed Active Active Problems Problem Noted Date Diagnosed Date Preop cardiovascular exam 06/24/2023 Abnormality of gait and mobility 10/18/2020 Primary osteoarthritis of right shoulder 021 Overview (04/24/2020): Added automatically from request for surgery [id number] Arthropathy, unspecified 04/24/2020 Overview (04/24/2020): Added automatically from request for surgery [id number] Immunizations Immunization Administration Dates Next Due Hep A, Unspecified 02/27/2016 Meningococcal MCV4P (Menactra) 02/27/2016 Yellow Fever 02/27/2016 Social History Tobacco Use Types Packs/Day Years Used Date Smoking Tobacco: Former Cigarettes Q uit: 1980 Smokeless Tobacco: Never AUDIT-C Answer Date Recorded Q1: How often do you have a drink containing alcohol? 4 or more times a week 06/19/2020 Q2: How many drinks containi ng alcohol do you have on a typical day when you are drinking? 1 or 2 Q3: How often do you have si x or more drinks on one occasion? 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 Gender Identity Not on file Sexual Orientation Not on file Last Filed Vital Signs Vital Sign Reading Time Taken Comments Blood Pressure 126/72 06/24/2023 10:14 AM CDT Pulse 76 06/24/2023 10:14 AM CDT Temperature 36.3 C (97.4 F) 06/20/2020 5:07 AM CDT Respiratory Rate 16 10/18/2020 12:56 PM CDT Oxygen Saturation 94% 06/24/2023 10:14 AM CDT Inhaled Oxygen Concentration - - Weight 66.2 kg (146 lb) 06/24/2023 10:14 AM CDT Height 152.4 cm (5') 06/24/2023 10:14 AM CDT Body Mass Index 28.51 06/24/2023 10:14 AM CDT Plan of Treatment Not on file Medical Devices Implanted Type Area Admitting Interviewer Device Identifier Shelf Expiration Date Model / Serial / Lot Depuy [employer] [id number] Delta Xtend 27mm Cementless Shoulder Standard Component Glenoid Latex Free - [id number] Implanted:Qty: 1 on 06/19/2020 by Scout Lea MD at [facility] [employer] [id number] 03/29/2025 [id number] / / [id number] [employer] [id number] Delta Xtend 4.5mm 18mm Shoulder Glenoid Screw Bone Metaglene - [id number] Implanted:Qty: 1 on 06/19/2020 by Scout Lea MD at [facility] Right: Shoulder [employer] [id number] 10/27/2024 [id number] / / [id number] [employer] [id number] Component Glenoid Delta Xtend +4mm Od38mm - [id number] Implanted:Qty: 1 on 06/19/2020 by Scout Lea MD at [facility] Right: Shoulder [employer] [id number] 09/27/2023 [id number] / / [id number] [employer] [id number] Delta Xtend 4.5mm 42mm Lock Shoulder Glenoid Screw Bone Metaglene - [id number] Implanted:Qty: 1 on 06/19/2020 by Scout Lea MD at [facility] Right: Shoulder [employer] [id number] 01/27/2025 [id number] / / [id number] [employer] [id number] Delta Xtend 4.5mm 18mm Shoulder Glenoid Screw Bone Metaglene - [id number] Implanted:Qty: 1 on 06/19/2020 by Scout Lea MD at [facility] Right: Shoulder [employer] [id number] 02/26/2025 [id number] / / [id number] [employer] [id number] Delta Xtend 4.5mm 42mm Lock Shoulder Glenoid Screw Bone Metaglene - [id number] Implanted:Qty: 1 on 06/19/2020 by Scout Lea MD at [facility] Right: Shoulder [employer] [id number] 01/27/2025 [id number] / / [id number] [employer] [id number] Global Unite 10mm 113mm Modular Shoulder Standard Stem Humeral - [id number] Implanted:Qty: 1 on 06/19/2020 by Scout Lea MD at [facility] Right: Shoulder [employer] [id number] 02/26/2030 [id number] / / [id number] [employer] [id number] Implant Shldr Xtend Modecc 145epi Por Sz1 Rt - [id number] Implanted:Qty: 1 on 06/19/2020 by Scout Lea MD at [facility] Right: Shoulder [employer] [id number] 04/29/2030 [id number] / / [id number] Dep[employer] [id number] Delta Xtend 38mm Shoulder +3mm Standard Cup Humeral Polyethylene Latex Free - [id number] Implanted:Qty: 1 on 06/19/2020 by Scout Lea MD at [facility] Right: Shoulder [employer] [id number] 12/27/2024 [id number] / / [id number] Insurance [facility] MEDICARE ADVANTAGE [facility] MEDIC[facility] Address: [address] [address] [facility] MEDICARE ADVANTAGE [facility]ARE Address: [place] [id number] [facility] MEDICARE ADVANTAGE [facility] MEDICARE Address: [place] [address] [facility] MEDICARE Advance Directives For more information, please contact: [phone] Documents on File Type Date Recorded Patient Plaster Block Layer Expl anation ADVANCE DIRECTIVE 06/05/2020 12:23 PM * Full Code (Latest Code Status on File) Date Activated Date Inactivated Comments 06/19/2020 4:16 PM 06/20/2020 7:52 PM Care Teams Import Coordination And Production Head Relationship Specialty Start Date End Date Gordo Huntley MD [address] [address] PCP - General Family Medicine 06/24/23 Scout Lea MD [address] [address] Consulting Physician Orthopedic Surgery 06/20/20
--- OUTSIDE RECORDS SUMMARY | 2024-07-22 07:21 | XMS_ITS | Clinical Summary ---
Author Organization [facility] Address [address] [place] [address] Care Team Providers Care Physical Education Professor Name Role Phone Scout Lea MD Unavailable [phone] Gordo Huntley MD Primary Care Provider [phone] Allergies Active Allergy Reactions Criticality Noted Date [...] (04/24/2020): Added automatically from request for surgery [id number] Arthropathy, unspecified 04/24/2020 Overview (04/24/2020): Added automatically from request for surgery [id number] Immunizations Immunization Administration Dates Next Due Hep A, Unspecified 02/27/2016 Meningococcal MCV4P (Menactra) 02/27/2016 Yellow Fever 02/27/2016 Surgical History Surgery Date Site/Laterality Comments TONSILLECTOMY SECTION 03/30/1972 - 03/29/1973 BREAST LUMPECTOMY 03/30/1997 - 03/29/1998 CATARACT EXTRACTION TOTAL KNEE ARTHROPLASTY 2015, 2016 Bilateral CARPAL TUNNEL RELEASE 2004, 2006 Right KNEE ARTHROSCOPY 03/30/2007 - 03/29/2008 Left TOTAL HIP ARTHROPLASTY 03/30/2018 - 03/29/2019 Right Medical History Medical History Date Comments Primary osteoarthritis of ri ght shoulder 04/24/2020 Added automatically from req uest for surgery [id number] Hyperlipidemia VINICIUS (obstructive sleep apnea) GERD (gastroesophageal reflux disease) Gastric erosion Migraine PONV (postoperative nausea a nd vomiting) Anesthesia hx PONV. 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 Gender Identity Not on file Sexual Orientation Not on file Obstetrics History Last Filed Vital Signs Vital Sign Reading [...] 06/24/2023 10:14 AM CDT Plan of Treatment Health Maintenance Due Date Last Done Comments Depression Screening 1940 Osteoporosis Screening-Bone Density Scan 1942 DTaP/Tdap/Td Vaccine (1 - Tdap) 1953 Hepatitis B Screening 01/06/1960 Pneumococcal vaccine 65+ (1 of 1 - PCV) 01/06/1992 Zoster Vaccine (1 of 2) 01/06/1992 Well Visit 65+ 2007 Fall Risk Assessment 06/20/2021 06/20/2020 Covid-19 Vaccine (3 - 2023-2 5 season) 2023 05/29/2020, 04/26/2020 Influenza Vaccine (Season Ended) 2024 12/29/2019, 12/15/2016, 01/06/2016, Additional history exists Medical Devices Implanted Type Area [place] Clerk Device Identifier Shelf Expiration Date Model / Serial / Lot Depuy [employer] [id number] Delta Xtend 27mm Cementless Shoulder Standard Component Glenoid Latex Free - [id number] Implanted:Qty: 1 on 06/19/2020 by Scout Lea MD at [facility] [employer] [id number] 03/29/2025 [id number] / / [id number] [employer] [id number] Delta Xtend 4.5mm 18mm Shoulder Glenoid Screw Bone Metaglene - [id number] Implanted:Qty: 1 on 06/19/2020 by Scout Lea MD at [facility] Right: Shoulder [employer] [id number] 10/27/2024 [id number] / / [id number] [employer] [id number] Component Glenoid Delta Xtend +4mm Od38mm - [id number] Implanted:Qty: 1 on 06/19/2020 by Scout Lea MD at [facility] Right: Shoulder [employer] [id number] 09/27/2023 [id number] / / [id number] [employer] [id number] Delta Xtend 4.5mm 42mm Lock Shoulder Glenoid Screw Bone Metaglene - [id number] Implanted:Qty: 1 on 06/19/2020 by Scout Lea MD at [facility] Right: Shoulder [employer] [id number] 01/27/2025 [id number] / / [id number] [employer] [id number] Delta Xtend 4.5mm 18mm Shoulder Glenoid Screw Bone Metaglene - [id number] Implanted:Qty: 1 on 06/19/2020 by Scout Lea MD at [facility] Right: Shoulder [employer] [id number] 02/26/2025 [id number] / / [id number] [employer] [id number] Delta Xtend 4.5mm 42mm Lock Shoulder Glenoid Screw Bone Metaglene - [id number] Implanted:Qty: 1 on 06/19/2020 by Scout Lea MD at [facility] Right: Shoulder [employer] [id number] 01/27/2025 [id number] / / [id number] [employer] [id number] Global Unite 10mm 113mm Modular Shoulder Standard Stem Humeral - [id number] Implanted:Qty: 1 on 06/19/2020 by Scout Lea MD at [facility] Right: Shoulder [employer] [id number] 02/26/2030 [id number] / / [id number] Dep[employer] [id number] Implant Shldr Xtend Modecc 145epi Por Sz1 Rt - [id number] Implanted:Qty: 1 on 06/19/2020 by Scout Lea MD at [facility] Right: Shoulder [employer] [id number] 04/29/2030 [id number] / / [id number] Dep[employer] [id number] Delta Xtend 38mm Shoulder +3mm Standard Cup Humeral Polyethylene Latex Free - [id number] Implanted:Qty: 1 on 06/19/2020 by Scout Lea MD at [facility] Right: Shoulder [employer] [id number] 12/27/2024 [id number] / / [id number] Insurance [facility] MEDICARE ADVANTAGE [facility] MEDICARE ADVANTAGE UHC MEDICARE ADVANTAGE [employer]ET[employer] MEDICARE Advance Directives For more information, please contact: [phone] Documents on File Type Date Recorded Patient Local Tanker Truck Driver Expl anation ADVANCE DIRECTIVE 06/05/2020 12:23 PM * Full Code (Latest Code Status on File) Date Activated Date Inactivated Comments 06/19/2020 4:16 PM 06/20/2020 7:52 PM Care Teams Physical Education Professor Relationship Specialty Start Date End Date Gordo Huntley MD [address] [address] PCP - General Family Medicine 06/24/23 Scout Lea MD [address] [address] Consulting Physician Orthopedic Surgery 06/20/20
[2024-07-22 07:53] LABS: Basophils Absolute Auto 0.1 K/mm3 (0.0-0.1); Basophils Percent Auto 2.1 % (0.2-1.2); Eosinophils Absolute Auto 0.3 K/mm3 (0-0.3); Eosinophils Percent Auto 4.7 % (0-4.4); Hematocrit 31.4 % (37.0-47.0); Hemoglobin 10.1 g/dL (12.0-15.0); Immature Granulocyte Absolute 0.03 K/mm3 (0.00-0.031); Immature Granulocyte Percent A 0.6 % (0-0.5); Lymphocytes Percent Auto 41.4 % (18.3-44.2); Mean Corpuscular HGB Conc 32.2 g/dl (32-36); Mean Corpuscular Hemoglobin 34.9 pg (26-34); Mean Corpuscular Volume 108.7 fl (80-100); Mean Platelet Volume 9.8 fl (7.4-10.4); Monocytes Absolute Auto 0.6 K/mm3 (0.1-0.6); Monocytes Percent Auto 10.5 % (2.6-8.5); Neutrophils Absolute Auto 2.2 K/mm3 (1.3-6.7); Neutrophils Percent Auto 40.7 % (45.5-73.1); Nucleated Red Blood Cells Perc 0.9 % (0.0-0.2); Platelet Count Result 329 k/mm3 (150-375); Red Blood Count 2.89 M/mm3 (4.2-5.4); Red Cell Distribution Width 16.4 % (11.5-14.5); White Blood Count 5.3 K/mm3 (4.5-10.0)
[2024-07-22 08:00] LABS: Add Urine Microscopic? YES; Appearance Urine Clear (Clear); Bacteria Urine None Seen /hpf; Bilirubin Urine Negative (Negative); Blood Urine Negative (Negative); Color Urine Yellow (Yellow); Glucose Urine UA Negative (Negative); Ketones Urine Negative (Negative); Leukocyte Esterase Ur 2+ LEU/UL (Negative); Nitrate Urine Negative (Negative); Non Pathogenic Casts 0-2; Protein Urine Negative (Negative); RBC Urine 0-2 /hpf (0-2); Specific Grav Ur 1.024 (1.001-1.035); Squamous Epithelial Cell Urine Occasional /hpf (Few)
[2024-07-22 08:04] LABS: Alanine Aminotransferase 19 U/L (6-35); Alkaline Phosphatase 51 U/L (38-126); Anion Gap 5 mmol/L (4-12); Aspartate Amino Transferase 24 U/L (14-36); Bilirubin,Total 0.7 mg/dL (0.2-1.3); Blood Urea Nitrogen 16 mg/dL (7-17); Calcium 9.1 mg/dL (8.4-10.2); Carbon Dioxide 28 mmol/L (22-30); Chloride 107 mmol/L (98-107); Cholesterol 145 mg/dL (0-200); Estimated Glomerular Filt Rate > 60; Glucose 98 mg/dL (65-110); HDL Direct 58 mg/dL; Potassium 4.1 mmol/L (3.4-5.0); Sodium 140 mmol/L (137-145); Triglycerides 55 mg/dL (<150)
[2024-07-22 08:05] LABS: Iron 155 ug/dL (37-170)
[2024-07-22 08:15] LABS: LDL Cholesterol Direct 62 mg/dL; Macrocytosis 1+ (NORMAL); Platelet Estimate Adequate (Adequate); Schistocytes None Seen
[2024-07-22 08:18] LABS: Percent Iron Saturation 50 % (20-50)
[2024-07-22 08:39] LABS: Hemoglobin A1C 5.7 % (<5.7)
[2024-07-22 09:07] LABS: Folic Acid 18.7 ng/mL (2.76->20)
== END 2024-07-22 07:18 | disposition home or self-care (01) ==
LOC: ANHLAB 07:18
PROVIDERS: PCP Family Medicine; Visit Provider Family Medicine
DX: E78.2 Mixed hyperlipidemia (principal); R73.01 Impaired fasting glucose; E55.9 Vitamin D deficiency, unspecified; D53.1 Other megaloblastic anemias, not elsewhere classified
CPT/HCPCS: 36415; 80048; 80061; 80076; 81001; 82607; 82652; 82728; 82746; 83036; 83540; 83550; 84443; 85025

== ENCOUNTER 2024-08-25 07:09 | Outpatient (CLI) | payer MEDICARE, SELFPAY ==
--- OUTSIDE RECORDS SUMMARY | 2024-08-25 07:13 | XMS_ITS | Clinical Summary ---
Author Organization [facility] Address [address] [place] [address] Phone Care Team Providers Care Print Cutter Name Role Phone Gordo Huntley MD Primary Care Provider [phone] Allergies Active Allergy Reactions Criticality Noted Date Comments Diphenhydramine Hallucination Medium 06/05/2020 Medications cyanocobalamin 1,000 mcg Tablet Active atorvastatin (LIPITOR) 10 mg tablet Take 10 mg by mouth daily. Active OTHER Algae KEVIN - calcium sea weed supplement Active Active Problems Problem Noted Date Diagnosed Date Macrocytic anemia 04/11/2021 Encounters Date Type Department Care Team Description 08/18/2024 External Device Data ST[facility] ABSTRACTION Provider, Abstract 08/17/2024 External Device Data STL ABSTRACTION Provider, Abstract 08/16/2024 External Device Data ST[facility] ABSTRACTION Provider, Abstract [...] on file Legal Sex Female 11:32 AM CARE WORKER Gender Identity Not on file Sexual Orientation Not on file Last Filed Vital Signs Vital Sign Reading Time Taken Comments Blood Pressure 103/69 03/02/2024 11:40 AM CARE WORKER Pulse 86 03/02/2024 11:40 AM CARE WORKER Temperature 36.3 C (97.3 F) 03/02/2024 11:40 AM CARE WORKER Respiratory Rate 18 03/02/2024 11:40 AM CARE WORKER Oxygen Saturation 95% 03/02/2024 11:40 AM CARE WORKER Inhaled Oxygen Concentration - - Weight 65.8 kg (145 lb) 03/02/2024 11:40 AM CARE WORKER Height 152.4 cm (5') 04/25/2021 11:26 AM CARE WORKER Body Mass Index 28.32 04/25/2021 11:26 AM CARE WORKER Plan of Treatment Upcoming Encounters Date Type Department Care Team (Late st Contact Info) Description 09/01/2024 10:15 AM CDT Office Visit [facility] Oncology and Hematology - [place] [address] [facility] [address] [place] [address] Raul Disla MD [address] [facility] [address] [place] [address] Health Maintenance Due Date Last Done Comments DTAP/TDAP/TD VACCINES (1 - Tdap) 1961 PNEUMOCOCCAL VACCINE 50+ YEA RS (1 of 1 - PCV) 01/06/1992 ZOSTER VACCINE (1 of 2) 01/06/1992 OSTEOPOROSIS SCREENING 2007 RSV VACCINE (60+ or ) (1 - 1-dose 75+ series) 2017 INFLUENZA VACCINE (#1) 2023 COVID-19 Vaccine (3 - 2023- season) 11/29/202304/2020, 04/26/2020 Insurance [employer] PPO MCR Care Teams Print Cutter Relationship Specialty Start Date End Date Gordo Huntley MD [address] [place] [address] PCP - General Family Practice 04/23/23
--- OUTSIDE RECORDS SUMMARY | 2024-08-25 07:13 | XMS_ITS | Clinical Summary ---
Author Organization [facility] Address [address] [place] [address] Care Team Providers Care Assembly Cleaner Name Role Phone Scout Lea MD Unavailable [phone] Gordo Huntley MD Primary Care Provider [phone] Allergies Active Allergy Reactions Criticality Noted Date [...] (04/24/2020): Added automatically from request for surgery [id number] Arthropathy, unspecified 04/24/2020 Overview (04/24/2020): Added automatically from request for surgery [id number] Immunizations Immunization Administration Dates Next Due Hep [...] Added automatically from req uest for surgery [id number] Hyperlipidemia VINICIUS (obstructive sleep apnea) GERD (gastroesophageal [...] on file 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 Gender Identity Not on file Sexual Orientation [...] history exists Medical Devices Implanted Type Area Chemist Physical Device Identifier Shelf Expiration Date Model / Serial / Lot Dep[employer] [id number] Delta Xtend 27mm Cementless Shoulder Standard Component Glenoid Latex Free - [id number] Implanted:Qty: 1 on 06/19/2020 by Scout Lea MD at [facility] [employer] [id number] 03/29/2025 [id number] / / [id number] [employer] [id number] Delta Xtend 4.5mm 18mm Shoulder Glenoid Screw Bone Metaglene - [id number] Implanted:Qty: 1 on 06/19/2020 by Scout Lea MD at [facility] Right: Shoulder [employer] [id number] 10/27/2024 [id number] / / [id number] [employer] [id number] Component Glenoid Delta Xtend +4mm Od38mm - [id number] Implanted:Qty: 1 on 06/19/2020 by Scout Lea MD at [facility] Right: Shoulder [employer] [id number] 09/27/2023 [id number] / / [id number] [employer] [id number] Delta Xtend 4.5mm 42mm Lock Shoulder Glenoid Screw Bone Metaglene - [id number] Implanted:Qty: 1 on 06/19/2020 by Scout Lea MD at [facility] Right: Shoulder [employer] [id number] 01/27/2025 [id number] / / [id number] [employer] [id number] Delta Xtend 4.5mm 18mm Shoulder Glenoid Screw Bone Metaglene - [id number] Implanted:Qty: 1 on 06/19/2020 by Scout Lea MD at [facility] Right: Shoulder [employer] [id number] 02/26/2025 [id number] / / [id number] [employer] [id number] Delta Xtend 4.5mm 42mm Lock Shoulder Glenoid Screw Bone Metaglene - [id number] Implanted:Qty: 1 on 06/19/2020 by Scout Lea MD at [facility] Right: Shoulder [employer] [id number] 01/27/2025 [id number] / / [id number] [employer] [id number] Global Unite 10mm 113mm Modular Shoulder Standard Stem Humeral - [id number] Implanted:Qty: 1 on 06/19/2020 by Scout Lea MD at [facility] Right: Shoulder [employer] [id number] 02/26/2030 [id number] / / [id number] [employer] [id number] Implant Shldr Xtend Modecc 145epi Por Sz1 Rt - [id number] Implanted:Qty: 1 on 06/19/2020 by Scout Lea MD at [facility] Right: Shoulder [employer] [id number] 04/29/2030 [id number] / / [id number] [employer] [id number] Delta Xtend 38mm Shoulder +3mm Standard Cup Humeral Polyethylene Latex Free - [id number] Implanted:Qty: 1 on 06/19/2020 by Scout Lea MD at [facility] Right: Shoulder [employer] [id number] 12/27/2024 [id number] / / [id number] Insurance [facility] MEDICARE ADVANTAGE [facility] MEDICARE ADVANTAGE UHC MEDICARE ADVANTAGE AETNA MEDICARE Advance Directives For more information, please contact: [phone] Documents on File Type Date Recorded Patient Radar Air Traffic Controller Expl anation ADVANCE DIRECTIVE 06/05/2020 12:23 PM * Full Code (Latest Code Status on File) Date Activated Date Inactivated Comments 06/19/2020 4:16 PM 06/20/2020 7:52 PM Care Teams Assembly Cleaner Relationship Specialty Start Date End Date Gordo Huntley MD [address] [address] PCP - General Family Medicine 06/24/23 Scout Lea MD [address] [address] Consulting Physician Orthopedic Surgery 06/20/20
--- OUTSIDE RECORDS SUMMARY | 2024-08-25 07:13 | XMS_ITS | Data Portability ---
Author Organization [place] - [facility], Main Office Address [address] [place] [address] Care Team Providers Care Electric Dolly Operator Name Role Phone PAULINE MAURICIO Primary Care Provider MIC HAIRSTON Referring Provider [phone] Assessment Encounter Date Assessment Date Assessment LastModified [...] She is going to be seeing her single fold machine operator in the next couple of weeks and will need his report. I advised her that since she is 83, I would also recommend that she be seen by a movement therapist before surgery. This would be for cardiac risk assessment. I have discussed with her that the risks of cardiac problems and mortality are higher in Octogenarians. She is going to start working on that now. I explained that I am not scheduling surgeries at the moment because I am going to be finishing my employment at [employer] and starting employment at [employer] June 28. I discussed with her that if she would like to have her hip replacement done more quickly she may wish to see 1 of the other orthopedic surgeons at 2 hip replacement surgery. She would like to wait. She was very happy with a direct anterior approach on the right side. The I explained that she could see me in the of June if she would like. 2. [...] more than half the time spent in nelm-tb-dbxw care. Not available 04/26/2023 13:01:10 Plan of Treatment Reminders Order Date Submit Date Provider Last Modified By Organization Details Last Modified Time Details Appointments None recorded. Lab None recorded. Referral None recorded. Procedures None recorded. Surgeries None recorded. Imaging XR, hip, unilateral 2023 024 [email or web address] [facility] [place], [address], [place], [address], 11:37:43 XR, lumbar spine 2023 024 [email or web address] [facility] [place], [address], [place], [address], 11:37:43 Medication Orders None recorded. Patient TargetsNo targets recorded. Patient InstructionsNo instructions recorded. Reason for Referral None Reported. Results Created Date Observation Date Name Description Value Unit Range Abnormal Flag Note LastModifiedBy Organization Detail LastModifiedTime 04/24/19 24 XR, hip, unila teral No observ ation record ed. [facility] [place] [address], [place], [address], 04/26/2023 12:54:26 04/24/19 24 XR, lumba r spine No observ ation record ed. [facility] [place] [address], [place], [address], 04/26/2023 12:56:59 Result Notes None recorded. Problems Name Problem SNOMED Code Status Onset Date Resolution Date Notes Provider Name and Address Organization Details Recorded Time Pain of left hip joint 2576963564044 00 Active 2023 RENAY Cruz, [place] [facility] 01/26/202 4 09:36:32 Preoperativ e cardiovascu lar examination Active 2023 Manisha Lay, SHIN null, [facility] 4 11:36:04 Problem Notes None recorded. Procedures Surgical History Date Name Laterality Status Provider Name and Address Organization Details Recorded Time Carpal tunnel surgery completed RENAY Cruz [facility] 04/24/2023 09:35:03 Knee Surgery completed Nimisha Morris Tabatha [facility] 04/24/2023 09:35:10 Hip surgery completed Nimisha Morris Tabatha [facility] 04/24/2023 09:35:18 Imaging Results None recorded. Procedure Notes None recorded. Medical Equipment None [...] completed Not Available Not Available Not Available CAR TRIMMER-GSTN 27 mg-20 mg-200 unit capsule TK 1 C PO Q 12 H 04/24 completed Not Available Not Available Not Available Virt-Onesimo 2.5 mg-25 mg-1 mg tablet 04/24 completed Not Available Not Available Not Available Fluzone High-Dose 2291-1627 (PF) 180 mcg/0.5 mL intramuscul ar syringe 04/24 completed Not Available Not Available Not Available Virtussin AC 10 mg-100 mg/5 mL oral liquid 04/24 completed Not Available Not Available Not Available Fluzone High-Dose (PF) 180 mcg/0.5 mL intramuscul ar syringe 04/24 completed Not Available Not Available Not Available Vivotif 2 billion unit capsule,del ayed release 04/24 completed Not Available Not Available Not Available Fluzone High-Dose 5794-4846 (PF) 180 mcg/0.5 mL intramuscul ar syringe ADM 0.5ML IM UTD 04/24 completed Not Available Not Available Not Available Yuvafem 10 mcg vaginal tablet 04/24 completed Not Available Not Available Not Available Fluzone High-Dose (PF) 180 mcg/0.5 mL intramuscul ar syringe ADM 0.5ML IM UTD 04/24 completed Not Available Not Available Not Available BinaxNOW COVID-19 Ag Self Test kit TEST DIRECTED TODAY 04/24 completed Not Available Not Available Not Available Vitals Date Recorded Body height Body mass index (BMI) Body weight Provider Name and Address Organization Details Last Updated DateTime 04/24/2023 153.67 cm 27.7 kg/m2 91498.[address] Cruz [facility] [facility] 04/24/2023 09:40:37 Social History None recorded. Functional Status None recorded. Mental Status None recorded. Family History Relationship Description Onset Age of this Age Resolved Age Notes LastModified by Organization Details LastModified Time Father Heart disease [email or web address] Not available 2023 09:34:22 Mother Heart disease [email or web address] Not available 2023 09:34:22 Medical History Condition Response ARTHRITIS Y ANEMIA/BLOOD DISORDER Y Gynecological HistoryNo gynecological history recorded. Obstetrics History GPAL:G 0 P 0 0 0 0 Past Encounters Encounter ID Performer Location Encounter Start Date Encounter Closed Date Diagnosis/Indication Diagnosis SNOMED-CT Code Diagnosis ICD10 Code Diagnosis Note [id number] Deuce Minaya MD [facility] [address] [facility] [address] [place] [id number] 04/24/2023 08:59:38 04/27/2023 11:37:43 Pain of left hip joint [id number] 45350 M25.552 Health Concerns Section Related Observation LastModified by Organization Detai ls LastModified Time None Recorded Concern Status LastModified by Organization Details LastModified Time None Recorded Advance Directives Directive None Recorded Payers Encounter Date Sequence Insurance Name Policy Number Policy Srivastava Covered Member ID Srivastava Member ID Guarantor Name 04/24/2023 1 [employer] (MEDICARE REPLACEMENT/ ADVANTAGE - PPO) [id number] 1 Brenda Maher [id number] Brenda Maher Notes Date Note Type Note Provider Name [...] direct anterior approach with Dr. Hairston in 2018. She would like to be considered for [...] an appointment coming up Deuce Minaya MD [address] [place] [address], [place] [address], [place], [address], [place] - [facility] [employer] [facility] [employer] 04/26/2023 13:01:27 OBGyn Episode No OBEpisode recorded.
--- OUTSIDE RECORDS SUMMARY | 2024-08-25 07:13 | XMS_ITS | Continuity of Care Document ---
Author Organization [facility] Address [address] [place] [address] Phone Care Team Providers Care Precision Instrument And Tool Maker Name Role Phone Scout Lea MD Unavailable [...] Encounter Office/outpa tient visit,est, low [facility], [address] [address], [place], [place], [id number], [place] tel:[phone] [facility] Right shoulder (chief complaint) Presence of right artificial shoulder joint 2 Leonora Butterfield. [address] [facility], [place] [address], [place], [place], [id number] , [place]. tel: [phone] Referring Provider: Scout Reilly, [address] [facility] [address] [facility], [place], [address] . tel:[phone] [facility], [address] [address], [place], [place], [id number], [place] [phone] [facility] Presence of right artificial shoulder joint 1 Leonora Butterfield. [address] [facility], [place] [address], [place], [place], [id number] , [place]. tel: [phone] [facility], [address] [address], [place], [place], [address], [place] tel:[phone] [facility] Presence of right artificial shoulder joint 1 Leonora Butterfield. [address] [facility], [place] [address], [place], [place], [address] , [place]. tel: [phone] Office/outpa tient visit,est, mod [facility], [address] [address], [place], [place], [address], [place] [phone] [facility] Right shoulder (chief complaint) Presence of right artificial shoulder joint 1 Leonora Butterfield. [address] [facility], [facility] [address], [place], [place], [address] , [place]. tel: [phone] Referring Provider: Scout Reilly, [address] [facility] [address] [facility], [place], [address] . tel:[phone] [facility], [address] [address], [place], [place], [address], [place] [phone] [facility] Right shoulder (chief complaint) Presence of right artificial shoulder joint May-0 7-202 1 Leonora Butterfield. [address] [facility], [place] [address], [place], [place], [address] , . tel:[phone] Referring Provider: Scout Reilly, [address] [place] [address], [place], [address] . tel:[phone] [facility], [address] [place] [address], [id number], tel:[phone] [facility] Right shoulder (chief complaint) Presence of right artificial shoulder joint 1 Leonora Butterfield. [address] [place] [address], [place], [place], [address] , [place]. tel:[phone] Referring Provider: Scout Reilly, [address] [place] [address], [place], [address] . tel:[phone] Office/outpa tient visit,[facility], [facility], [address] [place] [address], [id number], tel:[phone] [facility] right shoulder (chief complaint) Pain in right shoulderPrimary osteoarthritis, right shoulderComplete rotatr-cuff tear/ruptr of r shoulder, not trauma 1 Leonora Butterfield. [address] [place] [address], [id number] , . tel:[phone] Referring Provider: Scout Reilly, [address] [place] [address], [place], [address] . tel:[phone] Family History Family Member Type Diagnosis Age At Onset Mother Problem (finding) Osteoarthritis Mother Problem (finding) Heart Disease Father Problem (finding) Heart Disease Payers Payer name Insurance type Covered libertarian ID Cathy akbar(s) [facility] Medicare Solutions CI [id number] Social History Type Description Quantity Date Captured [...]
--- OUTSIDE RECORDS SUMMARY | 2024-08-25 07:13 | XMS_ITS | Referral Summary ---
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 Gender Identity Not on file Sexual Orientation [...] on file Medical Devices Implanted Type Area Aeronautical Engineer Device Identifier Shelf Expiration Date Model / Serial / Lot Depuy [employer] [id number] Delta Xtend 27mm Cementless Shoulder Standard Component Glenoid Latex Free - [id number] Implanted:Qty: 1 on 06/19/2020 by Scout Lea MD at [facility] [employer] [id number] 03/29/2025 [id number] / / [id number] [employer] [id number] Delta Xtend 4.5mm 18mm Shoulder Glenoid Screw Bone Metaglene - [id number] Implanted:Qty: 1 on 06/19/2020 by Scout Lea MD at [facility] Right: Shoulder [employer] [id number] 10/27/2024 [id number] / / [id number] [employer] [id number] Component Glenoid Delta Xtend +4mm Od38mm - [id number] Implanted:Qty: 1 on 06/19/2020 by Scout Lea MD at [facility] Right: Shoulder [employer] [id number] 09/27/2023 [id number] / / [id number] [employer] [id number] Delta Xtend 4.5mm 42mm Lock Shoulder Glenoid Screw Bone Metaglene - [id number] Implanted:Qty: 1 on 06/19/2020 by Scout Lea MD at [facility] Right: Shoulder [employer] [id number] 01/27/2025 [id number] / / [id number] [employer] [id number] Delta Xtend 4.5mm 18mm Shoulder Glenoid Screw Bone Metaglene - [id number] Implanted:Qty: 1 on 06/19/2020 by Scout Lea MD at [facility] Right: Shoulder [employer] [id number] 02/26/2025 [id number] / / [id number] [employer] [id number] Delta Xtend 4.5mm 42mm Lock Shoulder Glenoid Screw Bone Metaglene - [id number] Implanted:Qty: 1 on 06/19/2020 by Scout Lea MD at [facility] Right: Shoulder [employer] [id number] 01/27/2025 [id number] / / [id number] Dep[employer] [id number] Global Unite 10mm 113mm Modular Shoulder Standard Stem Humeral - [id number] Implanted:Qty: 1 on 06/19/2020 by Scout Lea MD at [facility] Right: Shoulder [employer] [id number] 02/26/2030 [id number] / / [id number] [employer] [id number] Implant Shldr Xtend Modecc 145epi Por Sz1 Rt - [id number] Implanted:Qty: 1 on 06/19/2020 by Scout Lea MD at [facility] Right: Shoulder [employer] [id number] 04/29/2030 [id number] / / [id number] [employer] [id number] Delta Xtend 38mm Shoulder +3mm Standard Cup Humeral Polyethylene Latex Free - [id number] Implanted:Qty: 1 on 06/19/2020 by Scout Lea MD at [facility] Right: Shoulder [employer] [id number] 12/27/2024 [id number] / / [id number] Insurance [facility] MEDICARE ADVANTAGE [facility] MEDICARE ADVANTAGE Member Subscriber Plan / Payer (Ef fective 2020-Present) Name:Gunnar, Brenda Lopez Relation to Subscriber:Self Name:Gunnar, Brenda Lopez Payer ID:[id number] (NAIC) Type:[facility] MEDICARE Address: [place] [phone] [facility] MEDICARE ADVANTAGE [facility] MED[facility] Advance Directives For more information, please contact: [phone] Documents on File Type Date Recorded Patient Extracting Machine Operator Expl anation ADVANCE DIRECTIVE 06/05/2020 12:23 PM * Full Code (Latest Code Status on File) Date Activated Date Inactivated Comments 06/19/2020 4:16 PM 06/20/2020 7:52 PM Care Teams Home And Family Living Professor Relationship Specialty Start Date End Date Gordo Huntley MD [address] [address] PCP - General Family Medicine 06/24/23 Scout Lea MD [address] [address] Consulting Physician Orthopedic Surgery 06/20/20
--- OUTSIDE RECORDS SUMMARY | 2024-08-25 07:13 | XMS_ITS | Clinical Summary ---
Author Organization [facility] Address [address], [facility] [address] [place] [address] Phone Care Team Providers Care Rn Surgical Pcu Name Role Phone Eloy Colby MD Primary Care Provider [phone] Calixto Perez DO Unavailable [phone] Allergies No known active allergies Medications polyethylene glycol (MIRALAX) Powder Use entire 255g bottle with 64oz of clear liquid as directed for colonoscopy prep. 255 g 0 6 Active Genistein-Zn Chelate-Vit D (ICT SUPPORT ENGINEER-GSTN) 27-20-200 MG-MG-UNIT Capsule Take 1 Cap by [...] to complete this topic Insurance MEDICARE [facility] Care Teams Rn Surgical Pcu Relationship Specialty Start Date End Date Eloy Colby MD [address] [place] [address] PCP - General Auto Body Customizer 09/11/15 Calixto Perez DO [address] [place] [address] Gastroenterology 09/11/15
[2024-08-25 07:52] LABS: Basophils Absolute Auto 0.1 K/mm3 (0.0-0.1); Basophils Percent Auto 1.5 % (0.2-1.2); Eosinophils Absolute Auto 0.1 K/mm3 (0-0.3); Eosinophils Percent Auto 1.7 % (0-4.4); Hematocrit 31.2 % (37.0-47.0); Immature Granulocyte Absolute 0.04 K/mm3 (0.00-0.031); Immature Granulocyte Percent A 0.7 % (0-0.5); Lymphocytes Absolute Auto 1.65 K/mm3 (0.9-3.2); Lymphocytes Percent Auto 28.1 % (18.3-44.2); Mean Corpuscular HGB Conc 32.1 g/dl (32-36); Mean Corpuscular Hemoglobin 34.7 pg (26-34); Mean Corpuscular Volume 108.3 fl (80-100); Mean Platelet Volume 9.7 fl (7.4-10.4); Monocytes Absolute Auto 0.5 K/mm3 (0.1-0.6); Monocytes Percent Auto 8.5 % (2.6-8.5); Neutrophils Absolute Auto 3.5 K/mm3 (1.3-6.7); Neutrophils Percent Auto 59.5 % (45.5-73.1); Nucleated Red Blood Cells Perc 1.4 % (0.0-0.2); Platelet Count Result 368 k/mm3 (150-375); Red Blood Count 2.88 M/mm3 (4.2-5.4); Red Cell Distribution Width 16.8 % (11.5-14.5); White Blood Count 5.9 K/mm3 (4.5-10.0)
[2024-08-25 08:25] LABS: Platelet Estimate Adequate (Adequate); Schistocytes None Seen
[2024-08-25 08:26] LABS: Macrocytosis 1+ (NORMAL)
[2024-08-25 09:36] LABS: Anion Gap 5 mmol/L (4-12); Blood Urea Nitrogen 14 mg/dL (7-17); Calcium 9.8 mg/dL (8.4-10.2); Carbon Dioxide 27 mmol/L (22-30); Chloride 107 mmol/L (98-107); Estimated Glomerular Filt Rate > 60; Glucose 95 mg/dL (65-110); Potassium 4.1 mmol/L (3.4-5.0); Sodium 139 mmol/L (137-145)
[2024-08-25 10:04] LABS: Iron 174 ug/dL (37-170)
[2024-08-25 10:14] LABS: Percent Iron Saturation 55 % (20-50)
[2024-08-25 10:38] LABS: Folic Acid > 20.0 ng/mL (2.76->20)
== END 2024-08-25 07:10 | disposition home or self-care (01) ==
LOC: ANHLAB 07:10
PROVIDERS: PCP Family Medicine; Visit Provider Internal Medicine Hematology & Oncology
DX: D64.9 Anemia, unspecified (principal)
CPT/HCPCS: 36415; 80048; 82607; 82728; 82746; 83540; 83550; 85025

== ENCOUNTER 2024-09-01 10:52 | Outpatient (CLI) | payer MEDICARE, SELFPAY ==
--- OUTSIDE RECORDS SUMMARY | 2024-09-01 11:55 | XMS_ITS | Data Portability ---
Author Organization [place] [facility], Main Office Address [address] [place] [address] Care Team Providers Care Check Processing Clerk Name Role Phone PAULINE MAURICIO Primary Care Provider MIC HAIRSTON Referring Provider Assessment Encounter Date [...] She is going to be seeing her reverberatory skimmer in the next couple of weeks and will need his report. I advised her that since she is 83, I would also recommend that she be seen by a e marketing specialist before surgery. This would be for cardiac risk assessment. I have discussed with her that the risks of cardiac problems and mortality are higher in Octogenarians. She is going to start working on that now. I explained that I am not scheduling surgeries at the moment because I am going to be finishing my employment at [employer] and starting employment at [employer] June 28. I discussed with her that [...] more than half the time spent in rtcp-pe-hcyb care. Not available 04/26/2023 13:01:10 Plan of Treatment Reminders Order Date Submit Date Provider Last Modified By Organization Details Last Modified Time Details Appointments None recorded. Lab None recorded. Referral None recorded. Procedures None recorded. Surgeries None recorded. Imaging XR, hip, unilateral 2023 024 [email or web address] [facility] [place], [address], [place], [address], 11:37:43 XR, lumbar spine 2023 024 [email or web address] [facility] [place], [address], [place], [address], 11:37:43 Medication Orders None recorded. Patient TargetsNo targets recorded. Patient InstructionsNo instructions recorded. Reason for Referral None Reported. Results Created Date Observation Date Name Description Value Unit Range Abnormal Flag Note LastModifiedBy Organization Detail LastModifiedTime 04/24/19 24 XR, hip, unila teral No observ ation record ed. [facility] [place] [address], [place], [address], 04/26/2023 12:54:26 04/24/19 24 XR, lumba r spine No observ ation record ed. [facility] [place] [address], [place], [address], 04/26/2023 12:56:59 Result Notes None recorded. Problems Name Problem SNOMED Code Status Onset Date Resolution Date Notes Provider Name and Address Organization Details Recorded Time Pain of left hip joint 3404180848280 00 Active 2023 RENAY Cruz, [place] [employer] [facility] 01/26/202 4 09:36:32 Preoperativ e cardiovascu lar examination Active 2023 Manisha Lay, SHIN null, [facility] 4 11:36:04 Problem Notes None recorded. Procedures Surgical History Date Name Laterality Status Provider Name and Address Organization Details Recorded Time Carpal tunnel surgery completed RENAY Cruz [facility] 04/24/2023 09:35:03 Knee Surgery completed Nimisha Morris Tabatha [facility] 04/24/2023 09:35:10 Hip surgery completed Nimisha Morris Tabatha [facility] 04/24/2023 09:35:18 Imaging Results None recorded. [...] completed Not Available Not Available Not Available STEEL ANALYST-GSTN 27 mg-20 mg-200 unit capsule TK 1 C PO Q 12 H 04/24 completed Not Available Not Available Not Available Virt-Onesimo 2.5 mg-25 mg-1 mg tablet 04/24 completed Not Available Not Available Not Available Fluzone High-Dose 4482-8031 (PF) 180 mcg/0.5 mL intramuscul ar syringe [...] Available Not Available Not Available Fluzone High-Dose 6739-1734 (PF) 180 mcg/0.5 mL intramuscul ar syringe [...] Updated DateTime 04/24/2023 153.67 cm 27.7 kg/m2 17832.3 g RENAY Cruz [place] [employer] 04/24/2023 09:40:37 Social History None recorded. Functional Status None recorded. Mental Status None recorded. Family History Relationship Description Onset Age of this Age Resolved Age Notes LastModified by Organization Details LastModified Time Father Heart disease [email or web address] Not available 2023 09:34:22 Mother Heart disease [email or web address] Not available 2023 09:34:22 Medical History Condition Response ARTHRITIS Y ANEMIA/BLOOD DISORDER Y Gynecological HistoryNo gynecological history recorded. Obstetrics History GPAL:G 0 P 0 0 0 0 Past Encounters Encounter ID Performer Location Encounter Start Date Encounter Closed Date Diagnosis/Indication Diagnosis SNOMED-CT Code Diagnosis ICD10 Code Diagnosis Note [id number] Deuce Minaya MD [facility] [address] [facility] [address] [place] [id number] 04/24/2023 08:59:38 04/27/2023 11:37:43 Pain of left hip joint [id number] 25252 M25.552 Health Concerns Section Related Observation LastModified by Organization Detai ls LastModified Time None Recorded Concern Status LastModified by Organization Details LastModified Time None Recorded Advance Directives Directive None Recorded Payers Encounter Date Sequence Insurance Name Policy Number Policy Srivastava Covered Member ID Srivastava Member ID Guarantor Name 04/24/2023 1 [employer] (MEDICARE REPLACEMENT/ ADVANTAGE - PPO) [id number] 1 Brenda Maher [id number] Brenda Maher Notes Date Note Type Note [...] an appointment coming up Deuce Minaya MD [address] [place] [address], [place] [address], [place], [address], [place] [facility] [employer] [facility] [employer] 04/26/2023 13:01:27 OBGyn Episode No OBEpisode recorded.
--- OUTSIDE RECORDS SUMMARY | 2024-09-01 11:55 | XMS_ITS | Clinical Summary ---
Author Organization [facility] Address [address] [place] [address] Phone Care Team Providers Care Radial Arm Saw Operator Name Role Phone Gordo Huntley MD Primary Care Provider [phone] Allergies Active Allergy Reactions Criticality Noted Date Comments Diphenhydramine Hallucination Medium 06/05/2020 Medications cyanocobalamin 1,000 mcg Tablet Active atorvastatin (LIPITOR) 10 mg tablet Take 10 mg by mouth daily. Active OTHER Algae KEVIN - calcium sea weed supplement Active Active Problems Problem Noted Date Diagnosed Date Macrocytic anemia 04/11/2021 Encounters Date Type Department Care Team Description 09/01/2024 10:15 AM CDT Office Visit [facility] Oncology and Hematology [facility] [address] [place] [phone] Raul Disla MD Iron overload (Primary Dx); Chronic anemia 08/25/2024 Orders Only [facility] Oncology and Hematology [facility] [address] [place] [id number] Raul Disla MD 08/18/2024 External Device Data STL ABSTRACTION Provider, [...] on file 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 Gender Identity Not on file Sexual Orientation Not on file Last Filed Vital Signs Vital Sign Reading Time Taken Comments Blood Pressure 122/72 09/01/2024 10:02 AM CDT Pulse 72 09/01/2024 10:02 AM CDT Temperature 36.2 C (97.2 F) 09/01/2024 10:02 AM CDT Respiratory Rate 15 09/01/2024 10:02 AM CDT Oxygen Saturation 97% 09/01/2024 10:02 AM CDT Inhaled Oxygen Concentration - - Weight 65 kg (143 lb 6.4 oz) 09/01/2024 10:02 AM CDT Height 152.4 cm (5') 04/25/2021 11:26 AM KINDERGARTEN PREP TEACHER Body Mass Index 28.01 04/25/2021 11:26 AM KINDERGARTEN PREP TEACHER Plan of Treatment Upcoming Encounters Date Type Department Care Team (Late st Contact Info) Description 09/19/2024 4:30 PM CDT Telephone Check Up [facility] Oncology and Hematology [place] [address] [place] [address] Raul Disla MD [address] [place] [address] License Acquisitions [address] [address] 03/09/2025 11:00 AM KINDERGARTEN PREP TEACHER Office Visit [facility] Oncology and Hematology [place] [address] [place] [address] Raul Disla MD [address] [place], [place] [address] [address] [place] [phone] Health Maintenance Due Date Last Done Comments DTAP/TDAP/TD VACCINES (1 - Tdap) 1961 PNEUMOCOCCAL VACCINE 50+ YEA RS (1 of 1 - PCV) 01/06/1992 ZOSTER VACCINE (1 of 2) 01/06/1992 OSTEOPOROSIS SCREENING 2007 RSV VACCINE (60+ or ) (1 - 1-dose 75+ series) 2017 INFLUENZA VACCINE (#1) 2023 COVID-19 Vaccine ( season) 11/29/202304/2020, 04/26/2020 [place] Prev entative Visit/Annual Wellness Visit 03/30/2024 Procedures Procedure Name Priority Date/Time Associated Diagnosis Comments BASIC METABOLIC PANEL Routine 08/25/2024 3:14 PM CDT CBC WITH DIFFERENTIAL Routine 08/25/2024 3:11 PM CDT from Last 3 Months Results * BASIC METABOLIC PANEL (08/25/2024 3:14 PM CDT) Blood us Raul Disla MD CHEMISTRY ORDERABLES Final Resu lt * CBC WITH DIFFERENTIAL (08/25/2024 3:11 PM CDT) Blood us Raul Disla MD HEMATOLOGY ORDERABLES Final Res ult from Last 3 Months Insurance [employer] PPO MCR Care Teams Radial Arm Saw Operator Relationship Specialty Start Date End Date Gordo Huntley MD [address] [place] [address] PCP - General Family Practice 04/23/23
--- OUTSIDE RECORDS SUMMARY | 2024-09-01 11:55 | XMS_ITS | Referral Summary ---
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 Gender Identity Not on file Sexual [...] on file Medical Devices Implanted Type Area Barrel Racer Device Identifier Shelf Expiration Date Model / Serial / Lot [employer] [id number] Delta Xtend 27mm Cementless Shoulder Standard Component Glenoid Latex Free - [id number] Implanted:Qty: 1 on 06/19/2020 by Scout Lea MD at [facility] [employer] [id number] 03/29/2025 [id number] / / [id number] [employer] [id number] Delta Xtend 4.5mm 18mm Shoulder Glenoid Screw Bone Metaglene - [id number] Implanted:Qty: 1 on 06/19/2020 by Scout Lea MD at [facility] Right: Shoulder [employer] [id number] 10/27/2024 [id number] / / [id number] [employer] [id number] Component Glenoid Delta Xtend +4mm Od38mm - [id number] Implanted:Qty: 1 on 06/19/2020 by Scout Lea MD at [facility] Right: Shoulder [employer] [id number] 09/27/2023 [id number] / / [id number] [employer] [id number] Delta Xtend 4.5mm 42mm Lock Shoulder Glenoid Screw Bone Metaglene - [id number] Implanted:Qty: 1 on 06/19/2020 by Scout Lea MD at [facility] Right: Shoulder [employer] [id number] 01/27/2025 [id number] / / [id number] [employer] [id number] Delta Xtend 4.5mm 18mm Shoulder Glenoid Screw Bone Metaglene - [id number] Implanted:Qty: 1 on 06/19/2020 by Scout Lea MD at [facility] Right: Shoulder [employer] [id number] 02/26/2025 [id number] / / [id number] [employer] [id number] Delta Xtend 4.5mm 42mm Lock Shoulder Glenoid Screw Bone Metaglene - [id number] Implanted:Qty: 1 on 06/19/2020 by Scout Lea MD at [facility] Right: Shoulder [employer] [id number] 01/27/2025 [id number] / / [id number] [employer] [id number] Global Unite 10mm 113mm Modular Shoulder Standard Stem Humeral - [id number] Implanted:Qty: 1 on 06/19/2020 by Scout Lea MD at [facility] Right: Shoulder [employer] [id number] 02/26/2030 [id number] / / [id number] [employer] [id number] Implant Shldr Xtend Modecc 145epi Por Sz1 Rt - [id number] Implanted:Qty: 1 on 06/19/2020 by Scout Lea MD at [facility] Right: Shoulder [employer] [id number] 04/29/2030 [id number] / / [id number] [employer] [id number] Delta Xtend 38mm Shoulder +3mm Standard Cup Humeral Polyethylene Latex Free - [id number] Implanted:Qty: 1 on 06/19/2020 by Scout Lea MD at [facility] Right: Shoulder [employer] [id number] 12/27/2024 [id number] / / [id number] Insurance [facility] MEDICARE ADVANTAGE [facility] MEDICARE ADVANTAGE Member Subscriber Plan / Payer (Ef fective 2020-Present) Name:Gunnar, Brenda Lopez Relation to Subscriber:Self Name:Gunnar, Brenda Lopez Payer ID:[id number] (NAIC) Type:[facility] MEDICARE Address: [place] [id number] [facility] MEDICARE ADVANTAGE REPLACED BY [facility] MEDICARE Advance Directives For more information, please contact: [phone] Documents on File Type Date Recorded Patient Rolling Up Machine Operator Expl anation ADVANCE DIRECTIVE 06/05/2020 12:23 PM * Full Code (Latest Code Status on File) Date Activated Date Inactivated Comments 06/19/2020 4:16 PM 06/20/2020 7:52 PM Care Teams Foot Piece Assembler Relationship Specialty Start Date End Date Gordo Huntley MD [address] [address] PCP - General Family Medicine 06/24/23 Scout Lea MD [address] [address] Consulting Physician Orthopedic Surgery 06/20/20
--- OUTSIDE RECORDS SUMMARY | 2024-09-01 11:55 | XMS_ITS | Continuity of Care Document ---
Author Organization [facility] Address [address] [place] [address] Phone Care Team Providers Care Wine Master Name Role Phone Scout Lea MD Unavailable [...] Encounter Office/outpa tient visit,est, low [facility], [address] [address], [place], [place], [id number], [place] tel:[phone] [facility] Right shoulder (chief complaint) Presence of right artificial shoulder joint 2 Leonora Butterfield. [address] [facility], [place] [address], [place], [place], [id number] , [place]. tel: [phone] Referring Provider: Scout Reilly, [address] [facility] [address] [facility], [place], [address] . tel:[phone] [facility], [address] [address], [place], [place], [id number], [place] [phone] [facility] Presence of right artificial shoulder joint 1 Leonora Butterfield. [address] [facility], [place] [address], [place], [place], [id number] , [place]. tel: [phone] [facility], [address] [address], [place], [place], [id number], [place] tel:[phone] [facility] Presence of right artificial shoulder joint 1 Leonora Butterfield. [address] [facility], [place] [address], [place], [place], [id number] , [place]. tel: [phone] Office/outpa tient visit,est, mod [facility], [address] [address], [place], [place], [id number], [place] [phone] [facility] Right shoulder (chief complaint) Presence of right artificial shoulder joint 1 Leonora Butterfield. [address] [facility], [facility] [address], [place], [place], [id number] , [place]. tel: [phone] Referring Provider: Scout Reilly, [address] [facility] [address] [facility], [place], [address] . tel:[phone] [facility], [address] [address], [place], [place], [id number], [place] [phone] [facility] Right shoulder (chief complaint) Presence of right artificial shoulder joint May-0 7-202 1 Leonora Butterfield. [address] [facility], [place] [address], [place], [place], [id number] , . tel:[phone] Referring Provider: Scout Reilly, [address] [place] [address], [place], [address] . tel:[phone] [facility], [address] [place] [address], [id number], tel:[phone] [facility] Right shoulder (chief complaint) Presence of right artificial shoulder joint 1 [address] [place] [address], [place], [place], [id number] , [place]. tel:[phone] Referring Provider: Scout Reilly, [address] [place] [address], [place], [address] . tel:[phone] Office/outpa tient visit,[facility], [address] [place] [address], [id number], tel:[phone] [facility] right shoulder (chief complaint) Pain in right shoulderPrimary osteoarthritis, right shoulderComplete rotatr-cuff tear/ruptr of r shoulder, not trauma 1 Leonora Butterfield. [address] [place] [address], [id number] , . tel:[phone] Referring Provider: Scout Reilly, [address] [place] [address], [place], [address] . tel:[phone] Family History Family Member Type Diagnosis Age At Onset Mother Problem (finding) Osteoarthritis Mother Problem (finding) Heart Disease Father Problem (finding) Heart Disease Payers Payer name Insurance type Covered green party ID Cathy akbar(s) [facility] Medicare Solutions CI [id number] Social History Type Description Quantity Date Captured [...]
--- OUTSIDE RECORDS SUMMARY | 2024-09-01 11:55 | XMS_ITS | Clinical Summary ---
Author Organization [facility] Address [address], [facility] [address] [place] [address] Phone Care Team Providers Care Motel Keeper Name Role Phone Eloy Colby MD Primary Care Provider [phone] Calixto Perez DO Unavailable [phone] Allergies No known active allergies Medications polyethylene glycol (MIRALAX) Powder Use entire 255g bottle with 64oz of clear liquid as directed for colonoscopy prep. 255 g 0 6 Active Genistein-Zn Chelate-Vit D (HOUSE VISITOR-GSTN) 27-20-200 MG-MG-UNIT Capsule Take 1 Cap by [...] to complete this topic Insurance [facility] Care Teams Motel Keeper Relationship Specialty Start Date End Date Eloy Colby MD [address] [place] [address] PCP - General Orthoptist 09/11/15 Calixto Perez DO [address] [place] [address] Gastroenterology 09/11/15
--- OUTSIDE RECORDS SUMMARY | 2024-09-01 11:55 | XMS_ITS | Encounter Summary ---
Author Organization [facility] Address [address] [place] [address] Care Team Providers Care Cell Tender Name Role Phone Gordo Huntley MD Primary Care Provider [phone] Reason for Referral * Laboratory Services (Routine) - Open Specialty Diagnoses / Procedures Referred By Nilsa jackman Referred To Contact Diagnoses Iron overload Procedures HEMOCHROMATOSIS GENOTYPE Raul Disla MD [address] [place] [address] Phone: tel: fax: Referral ID Status Reason Start Date Expiration Date Visits Re quested Visits Authorized [id number] Open 09/01/2024 10/02/2025 1 1 Reason for Visit * Reason Comments Follow Up Encounter Details Date Type Department Care Team ([facility] st Contact Info) Description 09/01/2024 10:15 AM CDT Office Visit 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 Gender Identity Not on file Sexual Orientation Not on file documented as of this encounter Last Filed Vital Signs Vital Sign Reading Time Taken Comments Blood Pressure 122/72 09/01/2024 10:02 AM CDT Pulse 72 09/01/2024 10:02 AM CDT Temperature 36.2 C (97.2 F) 09/01/2024 10:02 AM CDT Respiratory Rate 15 09/01/2024 10:02 AM CDT Oxygen Saturation 97% 09/01/2024 10:02 AM CDT Inhaled Oxygen Concentration - - Weight 65 kg (143 lb 6.4 oz) 09/01/2024 10:02 AM CDT Height - - Body Mass Index 28.01 04/25/2021 11:26 AM EMISSION TECHNICIAN documented in this encounter Progress Notes * Raul Disla MD - 09/01/2024 10:48 AM CDT HEMATOLOGY / ONCOLOGY PROGRESS NOTE Patient Identification: Name: Brenda Maher Age: 84 y.o. Sex: female : 1940 DIAGNOSIS Macrocytic anemia CURRENT TREATMENT Vitamin B12 500 mcg daily TREATMENT HISTORY SUBJECTIVE Patient came to the office for follow-up visit. She denies any excessive tiredness and fatigue. No bleeding and bruising. No chest pain or shortness of breath. Weight and appetite stable. No other new complaints. Review of system Constitutional: denies fevers, sweats, denies any tiredness and fatigue, weight and appetite stable HEENT: denies sinus congestion, hearing or vision problems Respiratory: denies cough, dyspnea, wheeze Cardiovascular: denies chest pain, exertional chest pressure/discomfort, nausea, syncope, shortnessof breath GI: denies constipation, diarrhea, dsyphagia, reflux symptoms, vomiting, melena : denies dysuria, frequency, incontinence, urgency Integumentary system: no lymphadenopathy, sweats, flushing Musculoskeletal: denies: myalgia, arthralgia Neurological: denies blurry or disturbed vision, numbness/weakness, dizziness Skin: No lumps, bumps or rashes. 12 point review of system was reviewed Objective: Vital signs in last 24 hours: As per nursing note Exam: General appearance: alert, cooperative, no distress, appears stated age Head: normocephalic, without obvious abnormality, atraumatic Eyes: conjunctivae/corneas clear, EOM's intact Ears: normal external ear canals AU Nose: Nares normal. Septum midline. Mucosa normal. No drainage or sinus tenderness Throat: Lips, mucosa, and tongue normal. Teeth and gums normal Neck: supple, symmetrical, trachea midline. Lungs: clear to auscultation bilaterally Heart: regular rate and rhythm, S1, S2 normal, no murmur, click, rub or gallop Abdomen: soft, non-tender. Bowel sounds normal. No masses, No organomegaly Extremities: extremities normal, atraumatic, no cyanosis or edema Skin: Skin color, texture, turgor normal. No rashes or lesions Lymph nodes: No lymphadenopathy Neuro: No obvious focal deficit Exam as above PATH LABS Labs from April 12, 2021 showed creatinine 0.7 total bilirubin 0.3 vitamin B12 more than 1000 folic acid more than 20 TSH 1.8 AST 27 ALT 22 iron 91 iron saturation 28% WBC 7.1 hemoglobin 11.6 MCV 105 platelet 321,000 Labs from April 18 showed creatinine 0.5 total bilirubin 0.6 WBC 5.5 hemoglobin 11.9 MCV 107 platelet 316,000 Labs from April 15 showed WBC 5.8 hemoglobin 11.3 MCV 107 platelet 410,000 creatinine 0.5 Labs from October 15 showed hemoglobin 10.9 MCV 109 creatinine 0.5 vitamin B12 more than 1000 iron 168saturation 52% ferritin 245 Labs from February 17 showed WBC 5.6 hemoglobin 10.8 MCV 108 platelet 355,000 vitamin B12 more [id number] iron 169 saturation 53% Labs from showed WBC 5.9 hemoglobin 10 platelet 368,000 MCV 108 iron 174 saturation 55 [id number] creatinine 0.5 B12 906 Assessment: Plan: Patient Active Problem List Diagnosis Date Noted Macrocytic anemia 04/11/2021 Macrocytic anemia. Blood work-up showed normal liver enzymes. TSH is also normal. Vitamin B12 and folic acid came back elevated. Iron level is normal. Likely macrocytosis and anemia is due to bone marrow problem like MDS. Her macrocytosis could be secondary to alcohol intake but now she only drinks occasionally. Remains clinically asymptomatic. Labs show slight decline in hemoglobin now down to 10. No need forbone marrow biopsy testing at this time unless patient is symptomatic of blood close down further. Patient will continue vitamin B12 500 mcg just on the weekends. Vitamin B12 level came back normal. She is not taking any iron supplements. Iron overload. Patient only drinks twice a month and not taking any iron supplement. I suggested donot drink any alcohol due to iron overload. Will check hemochromatosis testing and phone visit in 2weeks. I will see her back in 6 months as well. Hyperlipidemia. Stable on Lipitor. 09/01/2024 Raul Disla MD documented in this encounter Plan of Treatment Upcoming Encounters Date Type Department Care Team (Late st Contact Info) Description 09/19/2024 4:30 PM CDT Telephone Check Up [facility] Oncology and Hematology [facility] [address] [place] [address] [place] [address] [place] [address] [facility] [address] [place] [address] 03/09/2025 11:00 AM EMISSION TECHNICIAN Office Visit [facility] Oncology and [facility] [address] [place] [address] Raul Disla MD [address] [facility] [address] [place] [address] Scheduled Orders Name Type Priority Associated Diagnoses Orde r Schedule HEMOCHROMATOSIS GENOTYPE Lab Routine Iron overload Ordered: 09/01/2024 CBC WITH DIFFERENTIAL Lab Stat Chronic anemia Expected: 03/03/2025, Expires: 09/01/2025 FERRITIN Lab Routine Chronic anemia Expected: 03/03/2025, Expires: 09/01/2025 IRON, TIBC, AND PERCENT SATURATION Lab Routine Chronic anemia Expected: 03/03/2025, Expires: 09/01/2025 BASIC METABOLIC PANEL Lab Stat Chronic anemia Expected: 03/03/2025, Expires: 09/01/2025 documented as of this encounter Visit Diagnoses Diagnosis Iron overload- Primary Other disorders of iron metabolism Chronic anemia Anemia, unspecified documented in this encounter Care Teams Cell Tender Relationship Specialty Start Date End Date Gordo Huntley MD [address] [place] [address] PCP - General Family Practice 04/23/23 documented as of this encounter
--- OUTSIDE RECORDS SUMMARY | 2024-09-01 11:55 | XMS_ITS | Clinical Summary ---
Author Organization [facility] Address [address] [place] [address] Care Team Providers Care Senior Director Of Strategy Name Role Phone Scout Lea MD Unavailable [phone] Gordo Huntley MD Primary Care Provider [phone] Allergies Active Allergy Reactions Criticality Noted Date [...] (04/24/2020): Added automatically from request for surgery [id number] Arthropathy, unspecified 04/24/2020 Overview (04/24/2020): Added automatically from request for surgery [id number] Immunizations Immunization Administration Dates Next Due Hep [...] Added automatically from req uest for surgery [id number] Hyperlipidemia VINICIUS (obstructive sleep apnea) GERD (gastroesophageal [...] on file 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 Gender Identity Not on file Sexual [...] history exists Medical Devices Implanted Type Area Shipping Order Clerk Device Identifier Shelf Expiration Date Model / Serial / Lot Depuy [employer] [id number] Delta Xtend 27mm Cementless Shoulder Standard Component Glenoid Latex Free - [id number] Implanted:Qty: 1 on 06/19/2020 by Scout Lea MD at [facility] [employer] [id number] 03/29/2025 [id number] / / [id number] Dep[employer] [id number] Delta Xtend 4.5mm 18mm Shoulder Glenoid Screw Bone Metaglene - [id number] Implanted:Qty: 1 on 06/19/2020 by Scout Lea MD at [facility] Right: Shoulder [employer] [id number] 10/27/2024 [id number] / / [id number] Depuy [employer] [id number] Component Glenoid Delta Xtend +4mm Od38mm - [id number] Implanted:Qty: 1 on 06/19/2020 by Scout Lea MD at [facility] Right: Shoulder [employer] [id number] 09/27/2023 [id number] / / [id number] Dep[employer] [id number] Delta Xtend 4.5mm 42mm Lock Shoulder Glenoid Screw Bone Metaglene - [id number] Implanted:Qty: 1 on 06/19/2020 by Scout Lea MD at [facility] Right: Shoulder [employer] [id number] 01/27/2025 [id number] / / [id number] [employer] [id number] Delta Xtend 4.5mm 18mm Shoulder Glenoid Screw Bone Metaglene - [id number] Implanted:Qty: 1 on 06/19/2020 by Scout Lea MD at [facility] Right: Shoulder [employer] [id number] 02/26/2025 [id number] / / [id number] [employer] [id number] Delta Xtend 4.5mm 42mm Lock Shoulder Glenoid Screw Bone Metaglene - [id number] Implanted:Qty: 1 on 06/19/2020 by Scout Lea MD at [facility] Right: Shoulder [employer] [id number] 01/27/2025 [id number] / / [id number] Dep[employer] [id number] Global Unite 10mm 113mm Modular Shoulder Standard Stem Humeral - [id number] Implanted:Qty: 1 on 06/19/2020 by Scout Lea MD at [facility] Right: Shoulder [employer] [id number] 02/26/2030 [id number] / / [id number] Dep[employer] [id number] Implant Shldr Xtend Modecc 145epi Por Sz1 Rt - [id number] Implanted:Qty: 1 on 06/19/2020 by Scout Lea MD at [facility] Right: Shoulder [employer] [id number] 04/29/2030 [id number] / / [id number] Dep[employer] [id number] Delta Xtend 38mm Shoulder +3mm Standard Cup Humeral Polyethylene Latex Free - [id number] Implanted:Qty: 1 on 06/19/2020 by Scout Lea MD at [facility] Right: Shoulder [employer] [id number] 12/27/2024 [id number] / / [id number] Insurance [facility] MEDICARE ADVANTAGE [facility] MEDICARE ADVANTAGE UHC MEDICARE ADVANTAGE AETNA MEDICARE Advance Directives For more information, please contact: [phone] Documents on File Type Date Recorded Patient Rock Singer Expl anation ADVANCE DIRECTIVE 06/05/2020 12:23 PM * Full Code (Latest Code Status on File) Date Activated Date Inactivated Comments 06/19/2020 4:16 PM 06/20/2020 7:52 PM Care Teams Senior Director Of Strategy Relationship Specialty Start Date End Date Gordo Huntley MD [address] [address] PCP - General Family Medicine 06/24/23 Scout Lea MD [address] [address] Consulting Physician Orthopedic Surgery 06/20/20
== END 2024-09-01 10:53 | disposition home or self-care (01) ==
PROVIDERS: PCP Family Medicine; Visit Provider Internal Medicine Hematology & Oncology
DX: E83.19 Other disorders of iron metabolism (principal)
CPT/HCPCS: 36415; 81256

== ENCOUNTER 2024-10-03 10:00 | Outpatient (CLI) | payer MEDICARE, SELFPAY ==
--- NOTE | ~2024-10-03 | MM_ITS ---
EXAMINATION: MM screening heather BI w yancy HISTORY: Screening TECHNIQUE: Craniocaudal and mediolateral oblique 3-D tomosynthesis images were obtained and synthetic 2-D images were generated. CAD analysis was submitted and interpreted. COMPARISON: Comparison to multiple prior studies sequentially, with oldest reviewed study dated 02/27. BREAST PARENCHYMAL COMPOSITION: Not dense: There are scattered areas of fibroglandular density. FINDINGS: There is no evidence of suspicious mass, calcification, or architectural distortion to sugg est malignancy in either breast. There has been no suspicious interval change. IMPRESSION: 1. No mammographic evidence of malignancy. 2. Recommend routine screening mammography in one year. BI-RADS Category 1: Negative Reviewed, dictated and finalized at location A.
--- OUTSIDE RECORDS SUMMARY | 2024-10-03 10:08 | XMS_ITS | Clinical Summary ---
Author Organization [facility] Address [address], [facility] [address] [place] [address] Phone Care Team Providers Care Detail Manager Name Role Phone Eloy Colby MD Primary Care Provider [phone] Calixto Perez DO Unavailable [phone] Allergies No known active allergies Medications polyethylene glycol (MIRALAX) Powder Use entire 255g bottle with 64oz of clear liquid as directed for colonoscopy prep. 255 g 0 6 Active Genistein-Zn Chelate-Vit D (REFINERY OPERATOR ALKYLATION-GSTN) 27-20-200 MG-MG-UNIT Capsule Take 1 Cap by [...] to complete this topic Insurance MEDICARE C [facility] on file Care Teams Detail Manager Relationship Specialty Start Date End Date Eloy Colby MD [address] [place] [address] PCP - General Automotive Alignment Specialist 09/11/15 Calixto Perez DO [address] [place] [address] Gastroenterology 09/11/15
--- OUTSIDE RECORDS SUMMARY | 2024-10-03 10:08 | XMS_ITS | Referral Summary ---
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 [facility] Gender Identity Not on file Sexual Orientation [...] on file Medical Devices Implanted Type Area Clinical Unit Coordinator Device Identifier Shelf Expiration Date Model / Serial / Lot Depuy [employer] [id number] Delta Xtend 27mm Cementless Shoulder Standard Component Glenoid Latex Free - [id number] Implanted:Qty: 1 on 06/19/2020 by Scout Lea MD at [facility] [employer] [id number] 03/29/2025 [id number] / / [id number] [employer] [id number] Delta Xtend 4.5mm 18mm Shoulder Glenoid Screw Bone Metaglene - [id number] Implanted:Qty: 1 on 06/19/2020 by Scout Lea MD at [facility] Right: Shoulder [employer] [id number] 10/27/2024 [id number] / / [id number] [employer] [id number] Component Glenoid Delta Xtend +4mm Od38mm - [id number] Implanted:Qty: 1 on 06/19/2020 by Scout Lea MD at [facility] Right: Shoulder [employer] [id number] 09/27/2023 [id number] / / [id number] [employer] [id number] Delta Xtend 4.5mm 42mm Lock Shoulder Glenoid Screw Bone Metaglene - [id number] Implanted:Qty: 1 on 06/19/2020 by Scout Lea MD at [facility] Right: Shoulder [employer] [id number] 01/27/2025 [id number] / / [id number] Dep[employer] [id number] Delta Xtend 4.5mm 18mm Shoulder Glenoid Screw Bone Metaglene - [id number] Implanted:Qty: 1 on 06/19/2020 by Scout Lea MD at [facility] Right: Shoulder [employer] [id number] 02/26/2025 [id number] / / [id number] Dep[employer] [id number] Delta Xtend 4.5mm 42mm Lock Shoulder Glenoid Screw Bone Metaglene - [id number] Implanted:Qty: 1 on 06/19/2020 by Scout Lea MD at [facility] Right: Shoulder [employer] [id number] 01/27/2025 [id number] / / [id number] Dep[employer] [id number] Global Unite 10mm 113mm Modular Shoulder Standard Stem Humeral - [id number] Implanted:Qty: 1 on 06/19/2020 by Scout Lea MD at [facility] Right: Shoulder [employer] [id number] 02/26/2030 [id number] / / [id number] Dep[employer] [id number] Implant Shldr Xtend Modecc 145epi Por Sz1 Rt - [id number] Implanted:Qty: 1 on 06/19/2020 by Scout Lea MD at [facility] Right: Shoulder [employer] [id number] 04/29/2030 [id number] / / [id number] Dep[employer] [id number] Delta Xtend 38mm Shoulder +3mm Standard Cup Humeral Polyethylene Latex Free - [id number] Implanted:Qty: 1 on 06/19/2020 by Scout Lea MD at [facility] Right: Shoulder [employer] [id number] 12/27/2024 [id number] / / [id number] Insurance [facility] MEDIC[facility] ADVANTAGE [facility] Address: [address] [address] [facility] ADVANTAGE [facility] Address: [place] [id number] [facility] MEDIC[facility] ADVANTAGE [facility] Address: [place] [address] [facility] MEDIC[facility] Advance Directives For more information, please contact: [phone] Documents on File Type Date Recorded Patient President And Chief Executive Officer Expl anation ADVANCE DIRECTIVE 06/05/2020 12:23 PM * Full Code (Latest Code Status on File) Date Activated Date Inactivated Comments 06/19/2020 4:16 PM 06/20/2020 7:52 PM Care Teams Customer Development Manager Relationship Specialty Start Date End Date Gordo Huntley MD [address] [address] PCP - General Family Medicine 06/24/23 Scout Lea MD [address] [address] Consulting Physician Orthopedic Surgery 06/20/20
--- OUTSIDE RECORDS SUMMARY | 2024-10-03 10:08 | XMS_ITS | Continuity of Care Document ---
Author Organization [facility] Address [address] [place] [address] Phone Care Team Providers Care Tool Setter Apprentice Name Role Phone Scout Lea MD Unavailable [...] Encounter Office/outpa tient visit,est, low [facility], [address] [place] [address], [place], [place], [id number], [place] tel:[phone] [facility] Right shoulder (chief complaint) Presence of right artificial shoulder joint 2 Leonora Butterfield. [address] [facility], [place] [address], [place], [place], [id number] , [place]. tel: [phone] Referring Provider: Scout Reilly, [address] [facility] [address] [facility], [place], [address] . tel:[phone] [facility], [address] [address], [place], [place], [id number], [place] [phone] [facility] Presence of right artificial shoulder joint 1 Leonora Butterfield. [address] [facility], [place] [address], [place], [place], [id number] , [place]. tel: [phone] [facility], [address] [address], [place], [id number], [place] tel:[phone] [facility] Presence of right artificial shoulder joint 1 Leonora Butterfield. [address] [facility], [place] [address], [place], [place], [id number] , [place]. tel: [phone] Office/outpa tient visit,est, mod [facility], [address] [address], [place], [place], [id number], [place] [phone] [facility] Right shoulder (chief complaint) Presence of right artificial shoulder joint 1 Leonora Butterfield. [address] [facility], [facility] [address], [place], [place], [id number] , [place]. tel: [phone] Referring Provider: Scout Reilly, [address] [facility] [address] [facility], [place], [address] . tel:[phone] [facility], [address] [address], [place], [place], [id number], [place] [phone] [facility] Right shoulder (chief complaint) Presence of right artificial shoulder joint May-0 7-202 1 Leonora Butterfield. [address] [facility], [place] [address], [place], [place], [id number] , . tel:[phone] Referring Provider: Scout Reilly, [address] [place] [address], [place], [address] . tel:[phone] [facility], [address] [place] [address], [id number], tel:[phone] [facility] Right shoulder (chief complaint) Presence of right artificial shoulder joint 1 Leonora Butterfield. [address] [place] [address], [place], [place], [address] , [place]. tel:[phone] Referring Provider: Scout Reilly, [address] [place] [address], [place], [address] . tel:[phone] Office/outpa tient visit,[facility], [facility], [address] [place] [address], [id number], tel:[phone] [facility] right shoulder (chief complaint) Pain in right shoulderPrimary osteoarthritis, right shoulderComplete rotatr-cuff tear/ruptr of r shoulder, not trauma 1 Leonora Butterfield. [address] [place] [address], [id number] , . tel:[phone] Referring Provider: Scout Reilly, [address] [place] [address], [place], [address] . tel:[phone] Family History Family Member Type Diagnosis Age At Onset Mother Problem (finding) Osteoarthritis Mother Problem (finding) Heart Disease Father Problem (finding) Heart Disease Payers Payer name Insurance type Covered republican ID Cathy akbar(s) [facility] Medicare Solutions CI [id number] Social History Type Description Quantity Date Captured [...]
--- OUTSIDE RECORDS SUMMARY | 2024-10-03 10:08 | XMS_ITS | Clinical Summary ---
Author Organization [facility] Address [address] [place] [address] Phone Care Team Providers Care Veneer Taping Machine Offbearer Name Role Phone Gordo Huntley MD Primary Care Provider Allergies Active Allergy Reactions Criticality Noted Date Comments Diphenhydramine Hallucination Medium 06/05/2020 Medications cyanocobalamin 1,000 mcg Tablet Active atorvastatin (LIPITOR) 10 mg tablet Take 10 mg by mouth daily. Active OTHER Algae KEVIN - calcium sea weed supplement Active Active Problems Problem Noted Date Diagnosed Date Macrocytic anemia 04/11/2021 Encounters Date Type Department Care Team Description 09/19/2024 4:30 PM CDT Telephone Check Up [facility] Oncology and Hematology [facility] [address] [place] [address] Raul Disla MD Iron overload (Primary Dx) 09/14/2024 External Device Data STL ABSTRACTION Provider, Abstract 09/13/2024 External Device Data STL ABSTRACTION Provider, Abstract 09/13/2024 Orders Only [facility] Oncology and Hematology [facility] [address] [place] [address] Raul Disla MD 09/01/2024 10:15 AM CDT Office Visit [facility] Oncology and Hematology [address] [place] [address] Raul Disla MD Iron overload (Primary Dx); Chronic anemia 08/25/2024 Orders Only [facility] Oncology and Hematology [address] [place] [address] Raul Disla MD 08/18/2024 External Device Data [...] on file 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 Gender Identity Not on file Sexual [...] Height 152.4 cm (5') 04/25/2021 11:26 AM ADJUNCT TEACHER Body Mass Index 28.01 04/25/2021 11:26 AM ADJUNCT TEACHER Plan of Treatment Upcoming Encounters Date Type Department Care Team (Late st Contact Info) Description 12/26/2024 10:00 AM CDT Office Visit [facility] Oncology and Hematology - [address] [place] [address] Raul Disla MD [address] [facility] [address] [place] [address] 03/09/2025 11:00 AM ADJUNCT TEACHER Office Visit [facility] Oncology and Hematology - [place] [place] [address] Raul Disla MD [address] [facility] [address] [place] [address] Health Maintenance Due Date Last Done Comments DTAP/TDAP/TD VACCINES (1 - Tdap) 1961 PNEUMOCOCCAL VACCINE 50+ YEA RS (1 of 1 - PCV) 01/06/1992 ZOSTER VACCINE (1 of 2) 01/06/1992 OSTEOPOROSIS SCREENING 2007 RSV VACCINE (60+ or ) (1 - 1-dose 75+ series) 2017 COVID-19 Vaccine (3 - season) 11/29/202304/2020, 04/26/2020 INFLUENZA VACCINE (#1) 2024 Procedures Procedure Name Priority Date/Time Associated Diagnosis Comments CHG HEREDITARY HEMOCHROM GENE Routine 09/01/2024 5:41 PM CDT BASIC METABOLIC PANEL Routine 08/25/2024 3:14 PM CDT CBC WITH DIFFERENTIAL Routine 08/25/2024 3:11 PM CDT from Last 3 Months Results * CHG HEREDITARY HEMOCHROM GENE (09/01/2024 5:41 PM CDT) Raul Dilsa MD [facility] - LABORATORY Final Result * BASIC METABOLIC PANEL (08/25/2024 3:14 PM CDT) Blood Raul Disla MD CHEMISTRY ORDERABLES Final Resu lt * CBC WITH DIFFERENTIAL (08/25/2024 3:11 PM CDT) Blood us Raul Disla MD HEMATOLOGY ORDERABLES Final Res ult from Last 3 Months Insurance [employer] PPO MCR Care Teams Veneer Taping Machine Offbearer Relationship Specialty Start Date End Date Gordo Huntley MD [facility] [place] [address] PCP - General Family Practice 04/23/23
--- OUTSIDE RECORDS SUMMARY | 2024-10-03 10:08 | XMS_ITS | Data Portability ---
Author Organization [place] [facility], Main Office Address [address] [place] [address] Care Team Providers Care Regional Marketing Director Name Role Phone PAULINE MAURICIO Primary Care Provider MIC HAIRSTON Referring Provider [phone] Assessment Encounter Date Assessment Date Assessment LastModified [...] She is going to be seeing her traffic operations engineer in the next couple of weeks and will need his report. I advised her that since she is 83, I would also recommend that she be seen by a transmission engineer before surgery. This would be for cardiac risk assessment. I have discussed with her that the risks of cardiac problems and mortality are higher in Octogenarians. She is going to start working on that now. I explained that I am not scheduling surgeries at the moment because I am going to be finishing my employment at [employer] and starting employment at [employer] June 28. I discussed with her that [...] more than half the time spent in toaj-bs-ndko care. Not available 04/26/2023 13:01:10 Plan of Treatment Reminders Order Date Submit Date Provider Last Modified By Organization Details Last Modified Time Details Appointments None recorded. Lab None recorded. Referral None recorded. Procedures None recorded. Surgeries None recorded. Imaging XR, hip, unilateral 2023 024 [email or web address] [facility] [place], [address], [place], [address], 11:37:43 XR, lumbar spine 2023 024 [email or web address] [facility] [place], [address], [place], [address], 11:37:43 Medication Orders None recorded. Patient TargetsNo targets recorded. Patient InstructionsNo instructions recorded. Reason for Referral None Reported. Results Created Date Observation Date Name Description Value Unit Range Abnormal Flag Note LastModifiedBy Organization Detail LastModifiedTime 04/24/19 24 XR, hip, unila teral No observ ation record ed. [facility] [place] [address] [facility] [address], [place], [address], 04/26/2023 12:54:26 04/24/19 24 XR, lumba r spine No observ ation record ed. [facility] [place] [address], [place], [address], 04/26/2023 12:56:59 Result Notes None recorded. Problems Name Problem SNOMED Code Status Onset Date Resolution Date Notes Provider Name and Address Organization Details Recorded Time Pain of left hip joint [id number] 00 Active 2023 RENAY Cruz, [place] - [facility] 09:36:32 Preoperativ e cardiovascu lar examination Active 2023 Manisha Lay CMA null, [facility] 11:36:04 Problem Notes None recorded. Procedures Surgical History Date Name Laterality Status Provider Name and Address Organization Details Recorded Time Carpal tunnel surgery completed Nimishaavni Morris [facility] 04/24/2023 09:35:03 Knee Surgery completed Nimisha Morris [facility] 04/24/2023 09:35:10 Hip surgery completed Nimishaavni Morris [facility] 04/24/2023 09:35:18 Imaging Results None recorded. [...] completed Not Available Not Available Not Available TRANSFER CAR OPERATOR-GSTN 27 mg-20 mg-200 unit capsule TK 1 C PO Q 12 H 04/24 completed Not Available Not Available Not Available Virt-Onesimo 2.5 mg-25 mg-1 mg tablet 04/24 completed Not Available Not Available Not Available Fluzone High-Dose [id number] (PF) 180 mcg/0.5 mL intramuscul ar syringe [...] Available Not Available Not Available Fluzone High-Dose 8800-3580 (PF) 180 mcg/0.5 mL intramuscul ar syringe [...] Updated DateTime 04/24/2023 153.67 cm 27.7 kg/m2 61308.3 g [place] [facility] 04/24/2023 09:40:37 Social History None recorded. Functional Status None recorded. Mental Status None recorded. Family History Relationship Description Onset Age of this Age Resolved Age Notes LastModified by Organization Details LastModified Time Father Heart disease [email or web address] Not available 2023 09:34:22 Mother Heart disease [email or web address] Not available 2023 09:34:22 Medical History Condition Response ARTHRITIS Y ANEMIA/BLOOD DISORDER Y Gynecological HistoryNo gynecological history recorded. Obstetrics History GPAL:G 0 P 0 0 0 0 Past Encounters Encounter ID Performer Location Encounter Start Date Encounter Closed Date Diagnosis/Indication Diagnosis SNOMED-CT Code Diagnosis ICD10 Code Diagnosis Note [id number] Deuce Minaya MD [facility] [address] [facility] [address] [place] [address] 04/24/2023 08:59:38 04/27/2023 11:37:43 Pain of left hip joint [id number] 79124 M25.552 Health Concerns Section Related Observation LastModified by Organization Detai ls LastModified Time None Recorded Concern Status LastModified by Organization Details LastModified Time None Recorded Advance Directives Directive None Recorded Payers Insurance Date Sequence Insurance Name Policy Number Policy Srivastava Covered Member ID Srivastava Member ID Guarantor Name 04/24/2023 1 [employer] (MEDICARE REPLACEMENT/ ADVANTAGE - PPO) [id number] 1 Fredna C Gunnar [id number] Fredna C Gunnar 04/24/2023 1 [facility] (MEDICARE REPLACEMENT/ ADVANTAGE - PPO) [id number] Fredna C Gunnar [id number] Fredna C Gunnar Notes Date Note Type Note [...] an appointment coming up Deuce Minaya MD [address] [place] [address], [place] [address], [place], [address], [place] [facility] 04/26/2023 13:01:27 OBGyn Episode No OBEpisode recorded.
--- OUTSIDE RECORDS SUMMARY | 2024-10-03 10:09 | XMS_ITS | Clinical Summary ---
Author Organization [facility] Address [address] [place] [address] Care Team Providers Care Qa Software Tester Name Role Phone Scout Lea MD Unavailable Gordo Huntley MD Primary Care Provider [phone] Allergies Active Allergy Reactions Criticality Noted Date [...] (04/24/2020): Added automatically from request for surgery [id number] Arthropathy, unspecified 04/24/2020 Overview (04/24/2020): Added automatically from request for surgery [id number] Immunizations Immunization Administration Dates Next Due Hep [...] Added automatically from req uest for surgery [id number] Hyperlipidemia VINICIUS (obstructive sleep apnea) GERD (gastroesophageal [...] on file 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 Gender Identity Not on file Sexual Orientation [...] history exists Medical Devices Implanted Type Area Drawer In Plain Loom Device Identifier Shelf Expiration Date Model / Serial / Lot [employer] [id number] Delta Xtend 27mm Cementless Shoulder Standard Component Glenoid Latex Free - [id number] Implanted:Qty: 1 on 06/19/2020 by Scout Lea MD at [facility] [employer] [id number] 03/29/2025 [id number] / / [id number] [employer] [id number] Delta Xtend 4.5mm 18mm Shoulder Glenoid Screw Bone Metaglene - [id number] Implanted:Qty: 1 on 06/19/2020 by Scout Lea MD at [facility] Right: Shoulder [employer] [id number] 10/27/2024 [id number] / / [id number] [employer] [id number] Component Glenoid Delta Xtend +4mm Od38mm - [id number] Implanted:Qty: 1 on 06/19/2020 by Scuot Lea MD at [facility] Right: Shoulder [employer] [id number] 09/27/2023 [id number] / / [id number] [employer] [id number] Delta Xtend 4.5mm 42mm Lock Shoulder Glenoid Screw Bone Metaglene - [id number] Implanted:Qty: 1 on 06/19/2020 by Scout Lea MD at [facility] Right: Shoulder [employer] [id number] 01/27/2025 [id number] / / [id number] [employer] [id number] Delta Xtend 4.5mm 18mm Shoulder Glenoid Screw Bone Metaglene - [id number] Implanted:Qty: 1 on 06/19/2020 by Scout Lea MD at [facility] Right: Shoulder [employer] [id number] 02/26/2025 [id number] / / [id number] [employer] [id number] Delta Xtend 4.5mm 42mm Lock Shoulder Glenoid Screw Bone Metaglene - [id number] Implanted:Qty: 1 on 06/19/2020 by Scout Lea MD at [facility] Right: Shoulder [employer] [id number] 01/27/2025 [id number] / / [id number] [employer] [id number] Global Unite 10mm 113mm Modular Shoulder Standard Stem Humeral - [id number] Implanted:Qty: 1 on 06/19/2020 by Scout Lea MD at [facility] Right: Shoulder [employer] [id number] 02/26/2030 [id number] / / [id number] [employer] [id number] Implant Shldr Xtend Modecc 145epi Por Sz1 Rt - [id number] Implanted:Qty: 1 on 06/19/2020 by Scout Lea MD at [facility] Right: Shoulder [employer] [id number] 04/29/2030 [id number] / / [id number] [employer] [id number] Delta Xtend 38mm Shoulder +3mm Standard Cup Humeral Polyethylene Latex Free - [id number] Implanted:Qty: 1 on 06/19/2020 by Scout Lea MD at [facility] Right: Shoulder [employer] [id number] 12/27/2024 [id number] / / [id number] Insurance [facility] MEDIC[facility] ADVANTAGE [facility] MEDIC[facility] ADVANTAGE [employer] MEDICARE ADVANTAGE [employer] MEDICARE Advance Directives For more information, please contact: [phone] Documents on File Type Date Recorded Patient Hospice Music Therapist Expl anation ADVANCE DIRECTIVE 06/05/2020 12:23 PM * Full Code (Latest Code Status on File) Date Activated Date Inactivated Comments 06/19/2020 4:16 PM 06/20/2020 7:52 PM Care Teams Qa Software Tester Relationship Specialty Start Date End Date Gordo Huntley MD [address] [address] PCP - General Family Medicine 06/24/23 Scout Lea MD [address] [address] Consulting Physician Orthopedic Surgery 06/20/20
== END 2024-10-03 10:01 | disposition home or self-care (01) ==
LOC: ANHIMG 10:01
PROVIDERS: PCP Family Medicine; Visit Provider Obstetrics & Gynecology
DX: Z12.31 Encounter for screening mammogram for malignant neoplasm of breast (principal)
CPT/HCPCS: 77063; 77067

== ENCOUNTER 2024-10-06 08:44 | Emergency (ER) | payer MEDICARE, SELFPAY ==
[2024-10-06 09:21] VITALS: BP 143/63; PULSE 67; RESP 16; TEMP 36.6; O2SAT 100
[2024-10-06 09:50] LABS: EDINFLUASCREEN Negative (Negative); EDINFLUBSCREEN Negative (Negative)
[2024-10-06 09:53] LABS: EDCOVIDSCREEN Negative (Negative)
--- NOTE | 2024-10-06 11:44 | ED.URI ---
HPI - URI/Sore Throat General Chief Complaint: Upper Respiratory Infection Stated Complaint: Cold Symptoms Time Seen by Provider: 10/06/24 09:45 Source: patient and RN notes reviewed Mode of arrival: ambulatory Limitations: no limitations History of Present Illness HPI Narrative: 84-year-old female presents Express Care complaining of upper respiratory symptoms for approximately 10 days. Patient said 10 days ago she recently returned from and [place] trip states she develops symptoms are while she was at her trip. She reports having congestion, runny nose, dry cough does not seem to be getting better. Patient denies any chest pain, shortness of breath, nausea vomiting, diarrhea, in her symptoms. Patient says her friend recently was diagnosed with influenza a and she wants to make sure she does not the flu. Related Data Home Medications ?Medication ?Instructions ?Recorded ?Confirmed ?Last Taken ?Type famotidine-Ca carb-mag hydrox 10 1 tablet PO BID PRN indigestion 03/06/22 10/06/24 Unknown History mg-800 mg-165 mg chewable tablet (Pepcid Complete) Allergies Allergy/AdvReac Type Severity Reaction Status Date / Time diphenhydramine (From Allergy Intermediate Hallucinati Verified 10/06/24 09:30 Benadryl) ng Inhaled Anesthetics (Halogen AdvReac Severe Nausea and Verified 10/06/24 09:30 Based) Vomiting meperidine AdvReac Intermediate Nausea and Verified 10/06/24 09:30 Vomiting Review of Systems Review of Systems: CONSTITUTIONAL: Denies fever, chills, body aches, or sweats. EYES: Denies visual changes, redness, or discharge. ENT: Positive for rhinorrhea, sinus pressure, congestion. Negative for sore throat, or otalgia. CARDIOVASCULAR: Denies chest pain, palpitations, or edema. RESPIRATORY: Positive for cough. Negative for dyspnea or wheezing. GASTROINTESTINAL: Denies abdominal pain, nausea, vomiting, or diarrhea. GENITOURINARY: Denies dysuria or hematuria. SKIN: Denies rash or itching. MUSCULOSKELETAL: Denies back pain, joint pain, or myalgia. NEUROLOGIC: Denies headache, numbness, or weakness. PSYCHIATRIC: Denies anxiety or depression. All other systems reviewed are negative, except as documented in HPI. 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 BMI 28.0-28.9,adult Osteoarthritis of left hip Elevated fasting glucose Fasting glucose 104 with hemoglobin A1c 5.7 on 03/12/2022. glucose 99 with hemoglobin A1c 5.7. Fasting glucose 103 on 04/15/2023. nonfasting glucose 106 with hemoglobin A1c 5.5 on 08/12/2023. Glucose 97 on 10/16/2023. Fasting glucose 98 07/22/2024. Peripheral neuropathy history of peripheral neuropathy in the feet causing problems with balance Colon cancer screening colonoscopy with Dr. Perez on 05/29/2016 unremarkable except for diverticulosis. Ear itching Arthritis of left hip UTI (urinary tract infection) Dysuria Trigger finger, right ring finger Arthritis, lumbar spine At moderate risk for fall Osteopenia after menopause DEXA bone density study on 08/19/2021 with T-score normal at the spine at 1.346 with -2.1 at the left hip with osteopenia Chronic low back pain with right-sided sciatica GERD (gastroesophageal reflux disease) Mixed hyperlipidemia Total cholesterol 174, triglycerides 64, HDL 56, LDL 87 on 03/12/2022. cholesterol 145, triglycerides 55, HDL 58, LDL 62 on 07/22/2024. Overweight (BMI 25.0-29.9) (~02/09/23) Hallux valgus (acquired), right foot Acquired hallux valgus of left foot VINICIUS (obstructive sleep apnea) Osteoporosis Lower back pain Screening mammogram, encounter for normal mammogram 08/11/2022. normal mammogram 08/27/2023. Primary osteoarthritis involving multiple joints Post-menopause Dyslipidemia Anemia Lymphocytosis Cyst of ear canal Ear canal mass Vaccine counseling Other specified personal risk factors, not elsewhere classified COVID-19 vaccine series completed Unsteady gait IFG (impaired fasting glucose) Fasting glucose 104 with hemoglobin A1c 5.7 on 03/12/2022. Arthritis of right shoulder region Prediabetes Right hip pain Sleep apnea Headache, migraine Hearing loss Cataract BMI 27.0-27.9,adult Arthritis of left shoulder region BMI 26.0-26.9,adult Elevated cholesterol Carpal tunnel syndrome Surgical History Surgical History History of left hip replacement 09/01/23 History of shoulder replacement reverse right shoulder 2020 Dr. Lea H/O cataract extraction H/O arthroscopy of knee H/O lumpectomy H/O carpal tunnel repair History of section History of hip replacement Right hip 2018 History of knee replacement 2017 & 2016 Family History Family History Mother Acute myocardial infarction, Onset Age: 62 Cancer Father , 42 Bleeding ulcer No problems noted. Other Alcoholism Arthritis CHF (congestive heart failure), NYHA class I Family history of malignant neoplasm of breast Hearing loss Heart disease Hypertension Ulcer Social History Social History Smoking packs per day: 1 Smoking cigarettes per day: 20.0 Years smoked: 18 Smoking pack-years: 18.00 Smoking status: Former smoker Tobacco type: cigarettes Second hand tobacco smoke exposure: No Smoking end date: 03/30/81 Additional smoking assessment comments: DENIES ANY FORM OF TOBACCO USE Alcohol intake: current Drinks per week: 1 Alcohol use details: rarely- beer, gin, hui whiskey Substance use: never Substance use type: does not use Do You Feel Safe in your Home?: Yes Lack of Transportation: No Lack of Food: Never True Current Housing: I Have Housing Concerned About Future Housing: No Difficulty Paying Gas/Electric Bills: No Difficulty Paying for Meds: No Currently Unemployed: No Education: Master's Degree or Higher Difficulty w/ Childcare or Family Care: No Living arrangements: alone Occupation/Education: retired 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 There is no relevant family history pertinent to the patient complaint. Exam Narrative: GENERAL: This is a well-nourished, well-developed adult, in no apparent distress. They are non ill-appearing, nontoxic appearing. HEAD: normocephalic, atraumatic. EYES: Sclera clear/white. Vision is grossly intact. Conjunctiva normal bilaterally. Extraocular movements intact. EARS: External ears normal, auditory canals clear and without drainage, TMs without erythema or perforation. Hearing grossly intact. NOSE: External nose normal with no obvious nasal discharge, nasal turbinates erythematous, no rhinorrhea. Maxillary sinus tenderness to palpation. THROAT: Mucous membranes moist, posterior pharynx without redness or swelling, no exudate. Uvula is midline. Postnasal drip present. NECK: Neck supple, non-tender without lymphadenopathy, masses or thyromegaly. CARDIOVASCULAR: Regular rate and rhythm without murmurs, gallops, or rubs. RESPIRATORY: Clear to auscultation. Breath sounds equal bilaterally. No wheezes, rales, or rhonchi. SKIN: warm, Dry, intact with no suspicious lesions or rash, good texture and turgor. NEURO: awake, alert, and oriented to person, place and time. There were no obvious focal neurologic abnormalities. EXTREMITIES: No joint tenderness, effusion, or edema noted. BACK: Nontender without deformity. Course Course Emergency Course: Portions of this record may have been created with voice recognition software Level of Care: Express Care Visit Vital Signs Vital signs: Vital Signs Temperature 97.8 F 10/06/24 09:21 Pulse Rate 67 10/06/24 09:21 Respiratory Rate 16 10/06/24 09:21 Blood Pressure 143/63 H 10/06/24 09:21 Pulse Oximetry 100 10/06/24 09:21 Temperature 97.8 F 10/06/24 09:21 Pulse Rate 67 10/06/24 09:21 Respiratory Rate 16 10/06/24 09:21 Blood Pressure 143/63 H 10/06/24 09:21 Pulse Oximetry 100 10/06/24 09:21 MDM - URI/Sore Throat MDM Narrative Medical decision making narrative: Rapid COVID and flu were negative. Given patient's length of symptoms is likely she has a bacterial sinusitis. Will treat with Augmentin. Discussed physical exam findings. Advised supportive measures and signs/symptoms to go to the ER. Pt is appropriate for outpt treatment and f/u. Differential Diagnosis Differential diagnosis: Likely upper respiratory infection, sinusitis and viral infection Lab Data Attestation: I reviewed the patient's lab results. Labs: Lab Results 10/06/24 10/06/24 Range/Units 09:48 09:51 POC Influenza A Ag Negative (Negative) POC Influenza B Ag Negative (Negative) POC SARS CoV-2 Ag Negative (Negative) Discharge Plan Discharge Clinical Impression: Sinusitis Qualifiers: Sinusitis location: unspecified location Chronicity: acute Recurrence: non-recurrent Qualified Code(s): J01.90 - Acute sinusitis, unspecified Patient Disposition: Home Condition: Stable Instructions: Antibiotic Form, Sinusitis (ED) Additional Instructions: Take the antibiotics as directed and complete the course even if you start to feel better. You may use a Neti pot saline rinse 3 times a day with lukewarm distilled water Continue to take Tylenol or Motrin for pain. Use a humidifier or vaporizer at night. Drink plenty of water. 8-10 glasses per day. Use flonase 2 times per day for 5 days then as needed Take mucinex 2 times per day and be sure to take with 8oz of water. Follow up with Primary provider in 3-5 days Please go to the ER if he develops any difficulty breathing, worsening symptoms, or any other concerns Patient Language: Kazakh Prescriptions: New fluticasone propionate [Flonase Allergy Relief] 50 mcg/actuation spray,suspension 2 spray intranasal DAILY 14 Days Qty: 16 0RF Rx Instructions: administer into each nostril amoxicillin-pot clavulanate 875-125 mg tablet 1 tablet PO Q12H 7 Days Qty: 14 0RF No Action Pepcid Complete 10-800-165 mg tablet,chewable 1 tablet PO BID PRN (Reason: indigestion) acetaminophen [Tylenol Extra Strength] 500 mg tablet 500 mg PO Q4H Qty: 100 0RF atorvastatin 10 mg tablet 10 mg PO . q.h.s. Qty: 90 3RF Follow-up/Referrals: Gordo Huntley MD [Primary Care Provider] - Time of Disposition: 10:05
== END 2024-10-06 10:09 | disposition home or self-care (01) ==
PROVIDERS: PCP Family Medicine
DX: J01.90 Acute sinusitis, unspecified (principal); Z20.822 Contact with and (suspected) exposure to COVID-19; Z87.891 Personal history of nicotine dependence; M16.12 Unilateral primary osteoarthritis, left hip; G62.9 Polyneuropathy, unspecified; M47.816 Spondylosis without myelopathy or radiculopathy, lumbar region; M85.80 Other specified disorders of bone density and structure, unspecified site; K21.9 Gastro-esophageal reflux disease without esophagitis; M81.0 Age-related osteoporosis without current pathological fracture; E78.2 Mixed hyperlipidemia; R73.01 Impaired fasting glucose; R73.03 Prediabetes; M19.012 Primary osteoarthritis, left shoulder; Z96.643 Presence of artificial hip joint, bilateral
CPT/HCPCS: 87426; 87804; 99213; G0463

== ENCOUNTER 2024-11-26 08:33 | Emergency (ER) | payer MEDICARE, SELFPAY ==
[2024-11-26 08:41] VITALS: BP 135/64; PULSE 76; RESP 14; TEMP 36.5; O2SAT 99
--- NOTE | 2024-11-26 08:54 | ED.URI ---
HPI - URI/Sore Throat General Chief Complaint: Upper Respiratory Infection Stated Complaint: Cough Time Seen by Provider: 11/26/24 08:55 Source: patient, RN notes reviewed and old records reviewed Mode of arrival: ambulatory Limitations: no limitations History of Present Illness HPI Narrative: 84 year old female who presents to [facility] care with 10 day duration of initially runny nose which has gone to her chest with hacking cough which is at times productive of small amounts of mucous. Patient reports that she has not noted any fevers or any chills,denies any shortness of breath, no ear pain or any sore throat. Patient reports that she has been taking cough medication without improvement in her symptoms. MD elicited complaint: cough (productive), nasal congestion and other Pertinent past history: sinusitis Onset (ago): day(s) (10) Severity: moderate Description of mucous: clear Able to tolerate fluids by mouth: Yes Treatments prior to arrival: other (cough medication) Related Data Home Medications ?Medication ?Instructions ?Recorded ?Confirmed ?Last Taken ?Type famotidine-Ca carb-mag hydrox 10 1 tablet PO BID PRN indigestion 03/06/22 10/06/24 Unknown History mg-800 mg-165 mg chewable tablet (Pepcid Complete) Allergies Allergy/AdvReac Type Severity Reaction Status Date / Time diphenhydramine (From Allergy Intermediate Hallucinati Verified 11/26/24 08:40 Benadryl) ng Inhaled Anesthetics (Halogen AdvReac Severe Nausea and Verified 11/26/24 08:40 Based) Vomiting meperidine AdvReac Intermediate Nausea and Verified 11/26/24 08:40 Vomiting Review of Systems Review of Systems: CONSTITUTIONAL: Denies malaise, chills, sweats, or fever. EYES: Denies visual changes, redness, or discharge. ENT: Reports mild rhinorrhea, congestion,no sinus pain,no otalgia and no sore throat. CARDIOVASCULAR: Denies chest pain, palpitations, or edema. RESPIRATORY: Reports cough which is productive? Denies dyspnea. GASTROINTESTINAL: Denies abdominal pain, nausea, vomiting, diarrhea SKIN: Denies rash or itching. MUSCULOSKELETAL: Denies myalgia. NEUROLOGIC: Denies headache. 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 BMI 28.0-28.9,adult Osteoarthritis of left hip Elevated fasting glucose Fasting glucose 104 with hemoglobin A1c 5.7 on 03/12/2022. glucose 99 with hemoglobin A1c 5.7. Fasting glucose 103 on 04/15/2023. nonfasting glucose 106 with hemoglobin A1c 5.5 on 08/12/2023. Glucose 97 on 10/16/2023. Fasting glucose 98 07/22/2024. Peripheral neuropathy history of peripheral neuropathy in the feet causing problems with balance Colon cancer screening colonoscopy with Dr. Perez on 05/29/2016 unremarkable except for diverticulosis. Ear itching Arthritis of left hip UTI (urinary tract infection) Dysuria Trigger finger, right ring finger Arthritis, lumbar spine At moderate risk for fall Osteopenia after menopause DEXA bone density study on 08/19/2021 with T-score normal at the spine at 1.346 with -2.1 at the left hip with osteopenia Chronic low back pain with right-sided sciatica GERD (gastroesophageal reflux disease) Mixed hyperlipidemia Total cholesterol 174, triglycerides 64, HDL 56, LDL 87 on 03/12/2022. cholesterol 145, triglycerides 55, HDL 58, LDL 62 on 07/22/2024. Overweight (BMI 25.0-29.9) (~02/09/23) Hallux valgus (acquired), right foot Acquired hallux valgus of left foot VINICIUS (obstructive sleep apnea) Osteoporosis Lower back pain Screening mammogram, encounter for normal mammogram 08/11/2022. normal mammogram 08/27/2023. Normal mammogram 10/03/2024. Primary osteoarthritis involving multiple joints Post-menopause Dyslipidemia Anemia Lymphocytosis Cyst of ear canal Ear canal mass Vaccine counseling Other specified personal risk factors, not elsewhere classified COVID-19 vaccine series completed Unsteady gait IFG (impaired fasting glucose) Fasting glucose 104 with hemoglobin A1c 5.7 on 03/12/2022. Arthritis of right shoulder region Prediabetes Right hip pain Sleep apnea Headache, migraine Hearing loss Cataract BMI 27.0-27.9,adult Arthritis of left shoulder region BMI 26.0-26.9,adult Elevated cholesterol Carpal tunnel syndrome Surgical History Surgical History History of left hip replacement 09/01/23 History of shoulder replacement reverse right shoulder 2020 Dr. Lea H/O cataract extraction H/O arthroscopy of knee H/O lumpectomy H/O carpal tunnel repair History of section History of hip replacement Right hip 2018 History of knee replacement 2017 & 2016 Family History Family History Mother Acute myocardial infarction, Onset Age: 62 Cancer Father , 42 Bleeding ulcer No problems noted. Other Alcoholism Arthritis CHF (congestive heart failure), NYHA class I Family history of malignant neoplasm of breast Hearing loss Heart disease Hypertension Ulcer Social History Social History Smoking packs per day: 1 Smoking cigarettes per day: 20.0 Years smoked: 18 Smoking pack-years: 18.00 Smoking status: Former smoker Tobacco type: cigarettes Second hand tobacco smoke exposure: No Smoking end date: 03/30/81 Additional smoking assessment comments: DENIES ANY FORM OF TOBACCO USE Alcohol intake: current Drinks per week: 1 Alcohol use details: rarely- beer, gin, maltese whiskey Substance use: never Substance use type: does not use Do You Feel Safe in your Home?: Yes Lack of Transportation: No Lack of Food: Never True Current Housing: I Have Housing Concerned About Future Housing: No Difficulty Paying Gas/Electric Bills: No Difficulty Paying for Meds: No Currently Unemployed: No Education: Master's Degree or Higher Difficulty w/ Childcare or Family Care: No Living arrangements: alone Occupation/Education: 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 There is no relevant family history pertinent to the presenting complaint Exam Narrative: GENERAL: Well-appearing, well-nourished, and in no acute distress. HEAD: Normocephalic EYES: PERRLA, conjunctivae clear ENT: Nares clear, turbinates edematous and erythematous, clear discharge. Mucous membranes moist. TM pearly manuel with dull light reflex bilaterally; no tragal tenderness. Oropharynx erythematous without lesions. Tonsils not present and throat without exudate, no drooling, no hoarseness, no trismus, uvula midline. NECK: Supple. No lymphadenopathy CHEST: Clear to auscultation, breath sounds equal. No wheezing, rhonchi, rales, or stridor. No respiratory distress, speaks in full sentences,productive cough noted denies any dyspnea. HEART: Regular rate and rhythm. No murmur heard. SKIN: Warm, dry, no rash. NEURO: Alert and oriented x3. PSYCH: Normal mood and affect Course Course Emergency Course: Patient is aware of diagnosis, understands and agrees to treatment plan.? Anticipatory guidance given.? Patient agrees to follow-up as directed and is aware of reasons to seek care at the emergency department. Portions of this record may have been created with voice recognition software Level of Care: Express Care Visit Vital Signs Vital signs: Vital Signs Temperature 36.5 C 11/26/24 08:41 Pulse Rate 76 11/26/24 08:41 Respiratory Rate 14 11/26/24 08:41 Blood Pressure 135/64 11/26/24 08:41 Pulse Oximetry 99 11/26/24 08:41 Oxygen Delivery Room Air 11/26/24 08:41 Temperature 36.5 C 11/26/24 08:41 Pulse Rate 76 11/26/24 08:41 Respiratory Rate 14 11/26/24 08:41 Blood Pressure 135/64 11/26/24 08:41 Pulse Oximetry 99 11/26/24 08:41 Oxygen Delivery Room Air 11/26/24 08:41 Reviewed MDM - URI/Sore Throat MDM Narrative Medical decision making narrative: Differential diagnosis considered: Palomo virus, strep pharyngitis, allergic rhinitis, upper respiratory tract infection, sinusitis, rhinosinusitis, nasopharyngitis. viral pharyngitis, otitis media, otitis externa, pneumonia, bronchitis, viral cough syndrome, viral syndrome, and influenza.? Exam findings show no acute concerns or changes; patient is non-toxic appearing and is in no distress.? Patient is appropriate for outpatient treatment and follow-up. Differential Diagnosis Differential diagnosis: Likely upper respiratory infection, sinusitis, viral infection and other (acute cough) Medical Records Attestation: I reviewed the patient's medical records. Lab Data Attestation: I reviewed the patient's lab results. Critical Care Time Critical Care Time Critical Care Time: No Discharge Plan Discharge Clinical Impression: URI with cough and congestion, Upper respiratory infection Patient Disposition: Home Condition: Stable Instructions: Antibiotic Form, Upper Respiratory Infection (ED), Acute Cough (ED) Additional Instructions: Increase fluids especially juices and water Ctyp-woj-cwtkvic cough and cold medicine of your choice for your symptoms Cough tablets as directed for cough--do not bite, chew or suck on--swallow whole Zyrtec Claritin or Nella daily heat to the face 20-30 minutes 4-6 times a day for pain Salt water gargles, throat lozenges or throat sprays as desired Antibiotic as directed--finished the medication If your symptoms persist, change or worsen significantly before you can contact your personal physician then please, without delay, go to the emergency department for further evaluation. Follow-up with PCP in 7-10 days or sooner if needed Follow up with PCP soon in regards to your blood pressure which is elevated above threshold for referral. Blood pressure above 120/80 may indicate pre-hypertension. 135/64 Patient Language: Angolan Prescriptions: New amoxicillin-pot clavulanate 875-125 mg tablet 1 tablet PO Q12H Qty: 14 0RF Rx Instructions: take with food recommend taking probiotic or eating Activia yogurt while on this medication No Action fluticasone propionate [Flonase Allergy Relief] 50 mcg/actuation spray,suspension 2 spray intranasal DAILY 14 Days Qty: 16 0RF Rx Instructions: administer into each nostril Pepcid Complete 10-800-165 mg tablet,chewable 1 tablet PO BID PRN (Reason: indigestion) acetaminophen [Tylenol Extra Strength] 500 mg tablet 500 mg PO Q4H Qty: 100 0RF atorvastatin 10 mg tablet 10 mg PO . q.h.s. Qty: 90 3RF Follow-up/Referrals: Gordo Huntley MD [Primary Care Provider, [facility]] Time of Disposition: 09:13 Quality Terra Coma Scale Eyes: Open Verbal: Oriented and Alert Motor: Follows Commands Terra Coma Total Score: 15
== END 2024-11-26 09:15 | disposition home or self-care (01) ==
PROVIDERS: Emergency Provider Registered Nurse; PCP Family Medicine
DX: J06.9 Acute upper respiratory infection, unspecified (principal); R05.9 Cough, unspecified; Z87.891 Personal history of nicotine dependence; E78.00 Pure hypercholesterolemia, unspecified; R73.03 Prediabetes; M81.0 Age-related osteoporosis without current pathological fracture; K21.9 Gastro-esophageal reflux disease without esophagitis; G62.9 Polyneuropathy, unspecified; E83.110 Hereditary hemochromatosis; M16.12 Unilateral primary osteoarthritis, left hip; M47.816 Spondylosis without myelopathy or radiculopathy, lumbar region; M19.011 Primary osteoarthritis, right shoulder; Z96.643 Presence of artificial hip joint, bilateral; Z96.611 Presence of right artificial shoulder joint
CPT/HCPCS: 99213; G0463

== ENCOUNTER 2024-12-02 08:36 | Emergency (ER) | payer MEDICARE, SELFPAY ==
--- NOTE | 2024-12-02 08:38 | ED.SKABFB ---
HPI - Skin/Abscess/Foreign Bdy General Chief complaint: Skin/Abscess/Foreign Body Stated complaint: Tick Bite Time Seen by Provider: 12/02/24 08:43 Source: patient, RN notes reviewed and old records reviewed Mode of arrival: ambulatory Limitations: no limitations History of Present Illness HPI narrative: 84-year-old female presents to the [facility] with a puncture wound, bruise to the mid volar aspect of forearm. Patient states that she was working in her garden on her [employer] but believes that she may have been bit by a tick. She bruising is 1.5 cm. No treatment prior to arrival. Denies any pain, itching. No drainage. No fluctuance, no increased warmth Related Data Home Medications ?Medication ?Instructions ?Recorded ?Confirmed ?Last Taken ?Type famotidine-Ca carb-mag hydrox 10 1 tablet PO BID PRN indigestion 03/06/22 10/06/24 Unknown History mg-800 mg-165 mg chewable tablet (Pepcid Complete) Allergies Allergy/AdvReac Type Severity Reaction Status Date / Time diphenhydramine (From Allergy Intermediate Hallucinati Verified 12/02/24 08:47 Benadryl) ng Inhaled Anesthetics (Halogen AdvReac Severe Nausea and Verified 12/02/24 08:47 Based) Vomiting meperidine AdvReac Intermediate Nausea and Verified 12/02/24 08:47 Vomiting Review of Systems Review of Systems: All systems reviewed & are unremarkable except as noted in HPI and below Constitutional: Constitutional: Reports no additional constitutional complaints ENT: Reports system reviewed and no additional complaints, except as documented Cardiovascular: Cardiovascular: Reports no additional cardiovascular complaints, Denies chest pain and Denies dyspnea Respiratory: Respiratory: Reports no additional respiratory complaints, Denies chest congestion, Denies cough and Denies dyspnea Integumentary/Breasts: Skin/Breast: Reports as per HPI [facility] Past Medical History Medical History 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 BMI 28.0-28.9,adult Osteoarthritis of left hip Elevated fasting glucose Fasting glucose 104 with hemoglobin A1c 5.7 on 03/12/2022. glucose 99 with hemoglobin A1c 5.7. Fasting glucose 103 on 04/15/2023. nonfasting glucose 106 with hemoglobin A1c 5.5 on 08/12/2023. Glucose 97 on 10/16/2023. Fasting glucose 98 07/22/2024. Peripheral neuropathy history of peripheral neuropathy in the feet causing problems with balance Colon cancer screening colonoscopy with Dr. Perez on 05/29/2016 unremarkable except for diverticulosis. Ear itching Arthritis of left hip UTI (urinary tract infection) Dysuria Trigger finger, right ring finger Arthritis, lumbar spine At moderate risk for fall Osteopenia after menopause DEXA bone density study on 08/19/2021 with T-score normal at the spine at 1.346 with -2.1 at the left hip with osteopenia Chronic low back pain with right-sided sciatica GERD (gastroesophageal reflux disease) Mixed hyperlipidemia Total cholesterol 174, triglycerides 64, HDL 56, LDL 87 on 03/12/2022. cholesterol 145, triglycerides 55, HDL 58, LDL 62 on 07/22/2024. Overweight (BMI 25.0-29.9) (~02/09/23) Hallux valgus (acquired), right foot Acquired hallux valgus of left foot VINICIUS (obstructive sleep apnea) Osteoporosis Lower back pain Screening mammogram, encounter for normal mammogram 08/11/2022. normal mammogram 08/27/2023. Normal mammogram 10/03/2024. Primary osteoarthritis involving multiple joints Post-menopause Dyslipidemia Anemia Lymphocytosis Cyst of ear canal Ear canal mass Vaccine counseling Other specified personal risk factors, not elsewhere classified COVID-19 vaccine series completed Unsteady gait IFG (impaired fasting glucose) Fasting glucose 104 with hemoglobin A1c 5.7 on 03/12/2022. Arthritis of right shoulder region Prediabetes Right hip pain Sleep apnea Headache, migraine Hearing loss Cataract BMI 27.0-27.9,adult Arthritis of left shoulder region BMI 26.0-26.9,adult Elevated cholesterol Carpal tunnel syndrome Surgical History Surgical History History of left hip replacement 09/01/23 History of shoulder replacement reverse right shoulder 2020 Dr. Lea H/O cataract extraction H/O arthroscopy of knee H/O lumpectomy H/O carpal tunnel repair History of section History of hip replacement Right hip 2017 History of knee replacement 2017 & 2016 Family History Family History Mother Acute myocardial infarction, Onset Age: 62 Cancer Father , 42 Bleeding ulcer No problems noted. Other Alcoholism Arthritis CHF (congestive heart failure), NYHA class I Family history of malignant neoplasm of breast Hearing loss Heart disease Hypertension Ulcer Social History Social History Smoking packs per day: 1 Smoking cigarettes per day: 20.0 Years smoked: 18 Smoking pack-years: 18.00 Smoking status: Former smoker Tobacco type: cigarettes Second hand tobacco smoke exposure: No Smoking end date: 03/30/81 Additional smoking assessment comments: DENIES ANY FORM OF TOBACCO USE Alcohol intake: current Drinks per week: 1 Alcohol use details: rarely- beer, gin, hui whiskey Substance use: never Substance use type: does not use Do You Feel Safe in your Home?: Yes Lack of Transportation: No Lack of Food: Never True Current Housing: I Have Housing Concerned About Future Housing: No Difficulty Paying Gas/Electric Bills: No Difficulty Paying for Meds: No Currently Unemployed: No Education: Master's Degree or Higher Difficulty w/ Childcare or Family Care: No Living arrangements: alone Occupation/Education: retired 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 There is no relevant family history pertinent to the patient complaint. Exam Const: General: cooperative, healthy appearing, comfortable, no acute distress, well developed, alert and well nourished Nutritional Appearance: well nourished Orientation/consciousness: patient oriented x3 Limitations: no limitations HENMT: Head: normal to inspection Eyes: General: appearance normal, both eyes and all related structures Alignment and Position: alignment normal Neck: Neck: normal visual inspection, full ROM, no lymphadenopathy and no meningeal signs Chest: Chest palpation & inspection: normal inspection of the chest Resp: Effort & Inspection: normal respiratory effort and able to speak in complete sentences Cardio: Rate: regular rate Skin: General skin exam: normal color and no rashes or lesions noted Other: Right mid volar aspect forearm, 1.5 cm puncture wound center, bruising. Neuro: General: patient oriented x3, gait normal, moves all extremities and no meningeal signs Cognition (Neuro): normal cognition Speech: normal speech Gait exam (Neuro): Normal gait present Extrem: General: normal to inspection, full ROM, capillary refill normal and normal gait Psych: Appearance: grossly normal and well kempt Mental Status: mental status grossly normal Speech and movement: Normal speech and movement present and Clear speech present Affect: normal affect Attitude: cooperative Course Course Level of Care: Express Care Visit Vital Signs Vital signs: Vital Signs Temperature 97.0 F L 12/02/24 08:43 Pulse Rate 72 12/02/24 08:43 Respiratory Rate 16 12/02/24 08:43 Blood Pressure 122/61 12/02/24 08:43 Pulse Oximetry 98 12/02/24 08:43 Oxygen Delivery Room Air 12/02/24 08:43 Temperature 97.0 F L 12/02/24 08:43 Pulse Rate 72 12/02/24 08:43 Respiratory Rate 16 12/02/24 08:43 Blood Pressure 122/61 12/02/24 08:43 Pulse Oximetry 98 12/02/24 08:43 Oxygen Delivery Room Air 12/02/24 08:43 Reviewed MDM - Skin/Abscess/Foreign Bdy MDM Narrative Medical decision making narrative: Patient sitting in exam room. Patient is nontoxic, vitals stable. Patient presents with a puncture wound, bruise to the forearm, concerned of a tick bite. Will prescribe a single dose of doxycycline. Patient appropriate for outpatient treatment with close follow-up Discharge instructions reviewed with patient, as well as provided in writing per nursing staff. The instructions also include specific and strict return/GO TO THE ER as well as f/u information. All questions have been answered, and the patient deny any further questions with discharge and discharge plan. Some parts of this dictation were generated by voice recognition software and may contain typographical and/or grammatical inaccuracies. Differential Diagnosis Differential diagnosis: Likely abscess of skin or subcutaneous tissue, urticaria, cellulitis, insect bites, impetigo and contact dermatitis Critical Care Time Critical Care Time Critical Care Time: No Discharge Plan Discharge Clinical Impression: Arm wound Patient Disposition: Home Condition: Stable Instructions: Antibiotic Form, Acute Wounds (ED) Additional Instructions: Keep area clean and dry. Wash with warm soapy water twice daily, pat dry and apply bacitracin. Follow-up with primary care provider Patient Language: [place] Citizen Prescriptions: New doxycycline monohydrate 100 mg tablet 200 mg PO ONCE Qty: 2 0RF No Action amoxicillin-pot clavulanate 875-125 mg tablet 1 tablet PO Q12H Qty: 14 0RF Rx Instructions: take with food recommend taking probiotic or eating Activia yogurt while on this medication fluticasone propionate [Flonase Allergy Relief] 50 mcg/actuation spray,suspension 2 spray intranasal DAILY 14 Days Qty: 16 0RF Rx Instructions: administer into each nostril Pepcid Complete 10-800-165 mg tablet,chewable 1 tablet PO BID PRN (Reason: indigestion) acetaminophen [Tylenol Extra Strength] 500 mg tablet 500 mg PO Q4H Qty: 100 0RF atorvastatin 10 mg tablet 10 mg PO . q.h.s. Qty: 90 3RF Follow-up/Referrals: Gordo Huntley MD [Primary Care Provider, [facility]] - 2 Weeks Time of Disposition: 08:57
[2024-12-02 08:43] VITALS: BP 122/61; PULSE 72; RESP 16; TEMP 36.1; O2SAT 98
== END 2024-12-02 09:16 | disposition home or self-care (01) ==
PROVIDERS: Emergency Provider Nurse Practitioner; PCP Family Medicine
DX: S51.831A Puncture wound without foreign body of right forearm, initial encounter (principal); X58.XXXA Exposure to other specified factors, initial encounter; Z87.891 Personal history of nicotine dependence; E78.00 Pure hypercholesterolemia, unspecified; R73.03 Prediabetes; M81.0 Age-related osteoporosis without current pathological fracture; G62.9 Polyneuropathy, unspecified; M15.9 Polyosteoarthritis, unspecified; Z96.643 Presence of artificial hip joint, bilateral; Z96.611 Presence of right artificial shoulder joint
CPT/HCPCS: 99213; G0463

== ENCOUNTER 2024-12-14 08:08 | Emergency (ER) | payer MEDICARE, SELFPAY ==
[2024-12-14 08:17] VITALS: BP 106/67; PULSE 82; RESP 16; TEMP 36.6; O2SAT 100
--- NOTE | 2024-12-14 08:20 | ED_ITS ---
HPI - General Adult General Chief complaint: Urogenital-Female Stated complaint: UTI SYMPTOMS Source: patient Mode of arrival: ambulatory Limitations: no limitations History of Present Illness HPI narrative: patient is an 84-year-old female presenting with complaint of UTI symptoms. Symptoms reported include dysuria, urinary frequency, cloudy urine. Symptoms began 5 days ago and have waxed and waned since onset. Voices concern due to presence of blood last night. No recent UTI diagnosis. No concern for STI. No distal complaints. Related Data Home Medications ?Medication ?Instructions ?Recorded ?Confirmed ?Last Taken ?Type famotidine-Ca carb-mag hydrox 10 1 tablet PO BID PRN i ndigestion 03/06/22 12/14/24 Unknown History mg-800 mg-165 mg chewable tablet (Pepcid Complete) Allergies Allergy/AdvReac Type Severity Reaction Status Date / Time diphenhydramine (From Allergy Intermediate Hallucinati Verified 12/14/24 08:17 Benadryl) ng Inhaled Anesthetics (Halogen AdvReac Severe Nausea and Verified 12/14/24 08:17 Based) Vomiting meperidine AdvReac Intermediate Nausea and Verified 12/14/24 08:17 Vomiting Review of Systems Review of Systems: CONSTITUTIONAL: Denies body aches, fever, chills, or sweats. EYES: Denies visual changes, redness, or discharge. ENT: Denies rhinorrhea, congestion, sore throat, or otalgia. CARDIOVASCULAR: Denies chest pain, palpitations, or edema. RESPIRATORY: Denies cough or dyspnea. GASTROINTESTINAL: Denies abdominal pain, nausea, vomiting, or diarrhea. GENITOURINARY: Reports dysuria, frequency, cloudy appearance to the urine, hematuria. SKIN: Denies rash, itching, or wounds. MUSCULOSKELETAL: Denies back pain, joint pain, or myalgia. NEUROLOGIC: Denies headache, numbness, tingling, or weakness. PSYCH: Denies depression or anxiety. 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 BMI 28.0-28.9,adult Osteoarthritis of left hip Elevated fasting glucose Fasting glucose 104 with hemoglobin A1c 5.7 on 03/12/2022. glucose 99 with hemoglobin A1c 5.7. Fasting glucose 103 on 04/15/2023. nonfasting glucose 106 with hemoglobin A1c 5.5 on 08/12/2023. Glucose 97 on 10/16/2023. Fasting glucose 98 07/22/2024. Peripheral neuropathy history of peripheral neuropathy in the feet causing problems with balance Colon cancer screening colonoscopy with Dr. Perez on 05/29/2016 unremarkable except for diverticulosis. Ear itching Arthritis of left hip UTI (urinary tract infection) Dysuria Trigger finger, right ring finger Arthritis, lumbar spine At moderate risk for fall Osteopenia after menopause DEXA bone density study on 08/19/2021 with T-score normal at the spine at 1.346 with -2.1 at the left hip with osteopenia Chronic low back pain with right-sided sciatica GERD (gastroesophageal reflux disease) Mixed hyperlipidemia Total cholesterol 174, triglycerides 64, HDL 56, LDL 87 on 03/12/2022. cholesterol 145, triglycerides 55, HDL 58, LDL 62 on 07/22/2024. Overweight (BMI 25.0-29.9) (~02/09/23) Hallux valgus (acquired), right foot Acquired hallux valgus of left foot VINICIUS (obstructive sleep apnea) Osteoporosis Lower back pain Screening mammogram, encounter for normal mammogram 08/11/2022. normal mammogram 08/27/2023. Normal mammogram 10/03/2024. Primary osteoarthritis involving multiple joints Post-menopause Dyslipidemia Anemia Lymphocytosis Cyst of ear canal Ear canal mass Vaccine counseling Other specified personal risk factors, not elsewhere classified COVID-19 vaccine series completed Unsteady gait IFG (impaired fasting glucose) Fasting glucose 104 with hemoglobin A1c 5.7 on 03/12/2022. Arthritis of right shoulder region Prediabetes Right hip pain Sleep apnea Headache, migraine Hearing loss Cataract BMI 27.0-27.9,adult Arthritis of left shoulder region BMI 26.0-26.9,adult Elevated cholesterol Carpal tunnel syndrome Surgical History Surgical History History of left hip replacement 09/01/23 History of shoulder replacement reverse right shoulder 2020 Dr. Lea H/O cataract extraction H/O arthroscopy of knee H/O lumpectomy H/O carpal tunnel repair History of section History of hip replacement Right hip 2018 History of knee replacement 2017 & 2016 Family History Family History Mother Acute myocardial infarction, Onset Age: 62 Cancer Father , 42 Bleeding ulcer No problems noted. Other Alcoholism Arthritis CHF (congestive heart failure), NYHA class I Family history of malignant neoplasm of breast Hearing loss Heart disease Hypertension Ulcer Social History Social History Smoking packs per day: 1 Smoking cigarettes per day: 20.0 Years smoked: 18 Smoking pack-years: 18.00 Smoking status: Former smoker Tobacco type: cigarettes Second hand tobacco smoke exposure: No Smoking end date: 03/30/81 Additional smoking assessment comments: DENIES ANY FORM OF TOBACCO USE Alcohol intake: current Drinks per week: 1 Alcohol use details: rarely- beer, gin, yakut whiskey Substance use: never Substance use type: does not use Do You Feel Safe in your Home?: Yes Lack of Transportation: No Lack of Food: Never True Current Housing: I Have Housing Concerned About Future Housing: No Difficulty Paying Gas/Electric Bills: No Difficulty Paying for Meds: No Currently Unemployed: No Education: Master's Degree or Higher Difficulty w/ Childcare or Family Care: No Living arrangements: alone Occupation/Education: retired 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 HEAD: Normocephalic, atraumatic. EYES: EOMI. No redness or drainage. Conjunctivae normal. NECK: Normal AROM. Supple. CHEST: No respiratory distress. HEART: Regular rate ABDOMEN: Soft, nontender, nondistended, normal active bowel sounds.No CVAT SKIN: Warm, dry, no rash. Capillary refill normal. Normal skin turgor. NEURO: No focal deficits. Alert and oriented x3. Gait steady. PSYCH: Normal affect. No signs of depression or anxiety. Course Course Level of Care: Express Care Visit Vital Signs Vital signs: Vital Signs Temperature 98 F 12/14/24 08:17 Pulse Rate 82 12/14/24 08:17 Respiratory Rate 16 12/14/24 08:17 Blood Pressure 106/67 12/14/24 08:17 Pulse Oximetry 100 12/14/24 08:17 Temperature 98 F 12/14/24 08:17 Pulse Rate 82 12/14/24 08:17 Respiratory Rate 16 12/14/24 08:17 Blood Pressure 106/67 12/14/24 08:17 Pulse Oximetry 100 12/14/24 08:17 Medical Decision Making Vital Signs Vital Signs: Vital Signs Temperature 98 F 12/14/24 08:17 Pulse Rate 82 12/14/24 08:17 Respiratory Rate 16 12/14/24 08:17 Blood Pressure 106/67 12/14/24 08:17 Pulse Oximetry 100 12/14/24 08:17 Temperature 98 F 12/14/24 08:17 Pulse Rate 82 12/14/24 08:17 Respiratory Rate 16 12/14/24 08:17 Blood Pressure 106/67 12/14/24 08:17 Pulse Oximetry 100 12/14/24 08:17 Discharge Plan Discharge Clinical Impression: Dysuria Patient Disposition: Home Condition: Stable Instructions: Antibiotic Form, Dysuria (ED) Additional Instructions: Go straight to ER should your symptoms become worse or should any new symptoms develop Patient Language: Hebrew Prescriptions: New nitrofurantoin monohyd/m-cryst [Macrobid] 100 mg capsule 100 mg PO Q12H 5 Days Qty: 10 0RF Rx Instructions: must administer with a meal/food No Action fluticasone propionate [Flonase Allergy Relief] 50 mcg/actuation spray,suspension 2 spray intranasal DAILY 14 Days Qty: 16 0RF Rx Instructions: administer into each nostril Pepcid Complete 10-800-165 mg tablet,chewable 1 tablet PO BID PRN (Reason: indigestion) acetaminophen [Tylenol Extra Strength] 500 mg tablet 500 mg PO Q4H Qty: 100 0RF atorvastatin 10 mg tablet 10 mg PO . q.h.s. Qty: 90 3RF Follow-up/Referrals: Gordo Huntley MD [Primary Care Provider, Family Practice] - 12/15/24 Time of Disposition: 08:28
[2024-12-14 08:30] LABS: EDUAAPPEAR Cloudy; EDUABILI Negative (Negative); EDUABLOOD 3+ (Negative); EDUACOLOR1 Yellow; EDUAGLUCOSE Negative (Negative); EDUAKETONE Negative (Negative); EDUALEUKO Trace (Negative); EDUANITRATE Negative (Negative); EDUAPH 6.5; EDUAPROTEIN 2+ (Negative); EDUASPGRAVITY 1.020; EDUAUROBILI 0.2
== END 2024-12-14 08:31 | disposition home or self-care (01) ==
PROVIDERS: Emergency Provider Registered Nurse; PCP Family Medicine
DX: R30.0 Dysuria (principal); Z87.891 Personal history of nicotine dependence; R73.03 Prediabetes; M81.0 Age-related osteoporosis without current pathological fracture; E78.2 Mixed hyperlipidemia; K21.9 Gastro-esophageal reflux disease without esophagitis; M85.80 Other specified disorders of bone density and structure, unspecified site; G62.9 Polyneuropathy, unspecified; M16.12 Unilateral primary osteoarthritis, left hip; M19.012 Primary osteoarthritis, left shoulder; M19.011 Primary osteoarthritis, right shoulder; M47.816 Spondylosis without myelopathy or radiculopathy, lumbar region; Z96.643 Presence of artificial hip joint, bilateral; Z96.611 Presence of right artificial shoulder joint
CPT/HCPCS: 81003; 87077; 87086; 87186; 99213; G0463

== ENCOUNTER 2025-01-04 06:59 | Outpatient (CLI) | payer MEDICARE, SELFPAY ==
--- OUTSIDE RECORDS SUMMARY | 2025-01-04 07:02 | XMS_ITS | Clinical Summary ---
Author Organization [facility] Address [address] [place] [address] Phone Care Team Providers Care Visual Lead Name Role Phone Gordo Huntley MD Primary Care Provider [phone] Allergies Active Allergy Reactions Criticality Noted Date Comments Diphenhydramine Hallucination Medium 06/05/2020 Medications cyanocobalamin 1,000 mcg Tablet Active atorvastatin (LIPITOR) 10 mg tablet Take 10 mg by mouth daily. Active OTHER Algae KEVIN - calcium sea weed supplement Active Active Problems Problem Noted Date Diagnosed Date Macrocytic anemia 04/11/2021 Encounters Date Type Department Care Team Description 11/29/2024 External Device Data [facility] ABSTRACTION Provider, Abstract 11/15/2024 External Device Data [facility] ABSTRACTION Provider, Abstract 11/02/2024 External Device Data [facility] ABSTRACTION Provider, Abstract 10/12/2024 External Device Data [facility] ABSTRACTION Provider, Abstract 10/12/2024 External Device Data [facility] ABSTRACTION Provider, Abstract 10/12/2024 External Device Data [facility] ABSTRACTION Provider, Abstract 10/11/2024 External Device Data [facility] ABSTRACTION Provider, Abstract [...] on file Legal Sex Female 11:32 AM [employer] CONSULTANT Gender Identity Not on file Sexual Orientation [...] Height 152.4 cm (5') 04/25/2021 11:26 AM [employer] CONS[employer]ANT Body Mass Index 28.01 04/25/2021 11:26 AM [employer] CONSULTANT Plan of Treatment Upcoming Encounters Date Type Department Care Team (Late st Contact Info) Description 01/10/2025 11:15 AM CDT [facility] Visit [facility] [place] [address] [place] [address] [place] [address] [place] [address] [facility] [address] [place] [phone] 03/09/2025 11:00 AM [employer] CONSULTANT Office Visit [facility] [address] [place] [phone] [place] [address] [place] [address] [facility] [address] [place] [phone] Health Maintenance Due Date Last Done Comments DTAP/TDAP/TD VACCINES (1 - Tdap) 1959 PNEUMOCOCCAL VACCINE 50+ YEA RS (1 of 1 - PCV) 01/06/1992 ZOSTER VACCINE (1 of 2) 01/06/1992 OSTEOPOROSIS SCREENING 2007 RSV VACCINE (60+ or ) (1 - 1-dose 75+ series) 2017 INFLUENZA VACCINE (#1) 2024 COVID-19 Vaccine (3 - season) 11/28/202404/2020, 04/26/2020 Insurance [employer] PPO MCR Care Teams Visual Lead Relationship Specialty Start Date End Date Gordo Huntley MD [address] [place] [address] PCP - General Family Practice 04/23/23
--- OUTSIDE RECORDS SUMMARY | 2025-01-04 07:02 | XMS_ITS | Clinical Summary ---
Author Organization [facility] Address [address] [facility] [address] [place] [address] Phone Care Team Providers Care Dev Manager Name Role Phone Eloy Colby MD Primary Care Provider [phone] Calixto Perez DO Unavailable [phone] Allergies No known active allergies Medications polyethylene glycol (MIRALAX) Powder Use entire 255g bottle with 64oz of clear liquid as directed for colonoscopy prep. 255 g 0 6 Active Genistein-Zn Chelate-Vit D (MANUFACTURING TEST TECHNICIAN-GSTN) 27-20-200 MG-MG-UNIT Capsule Take 1 Cap by [...] Health Maintenance Due Date Last Done Comments Hepatitis C Virus (HCV) Screening 1940 TdaP Immunization 1940 Pneumococcal Immunization (50+ years) (1 of 1 - PCV) 01/06/1992 Zoster Immunization (1 of 2) 01/06/1992 Medicare Initial AWV [id number] 03/30/2016 Respiratory Syncytial Virus (RSV) Immunization (Adult) (1 - 1-dose 75+ series) 2017 Influenza Immunization (#1) 11/28/202403/2019, 12/15/2016, 01/06/2016, Additional history exists SARS-COV-2 Immunization (2024- season) 2024 07/01/2021, 01/22/2021, 05/29/2020, Additional history exists Hepatitis B Immunization Aged Out No longer eligible based on patient's age to complete this topic Human Papillomavirus (HPV) Immunization Aged Out No longer eligible based on patient's age to complete this topic Meningococcal Immunization (ACWY) Aged Out No longer eligible based on patient's age to complete this topic Rotavirus Immunization Aged Out No lo nger eligible based on patient's age to complete this topic Insurance [facility] Care Teams Dev Manager Relationship Specialty Start Date End Date Eloy Colby MD [address] [place] [address] PCP - General Fun House Attendant 09/11/15 Calixto Perez DO [address] [place] [address] Gastroenterology 09/11/15
--- OUTSIDE RECORDS SUMMARY | 2025-01-04 07:02 | XMS_ITS | Data Portability ---
Author Organization [place] - [facility], Main Office Address [address] [place] [address] Care Team Providers Care Commodities Clerk Name Role Phone PAULINE MAURICIO Primary Care Provider [phone] MIC HAIRSTON Referring Provider [phone] Assessment Encounter Date Assessment Date Assessment LastModified [...] She is going to be seeing her fire and explosion investigator in the next couple of weeks and will need his report. I advised her that since she is 83, I would also recommend that she be seen by a grails web application developer before surgery. This would be for cardiac risk assessment. I have discussed with her that the risks of cardiac problems and mortality are higher in Octogenarians. She is going to start working on that now. I explained that I am not scheduling surgeries at the moment because I am going to be finishing my employment at [employer] and starting employment at [employer] June 28. I discussed with her that [...] more than half the time spent in [id number] care. Not available 04/26/2023 13:01:10 Plan of Treatment Reminders Order Date Submit Date Provider Last Modified By Organization Details Last Modified Time Details Appointments None recorded. Lab None recorded. Referral None recorded. Procedures None recorded. Surgeries None recorded. Imaging XR, hip, unilateral 2023 024 [email or web address] [facility] [place], [address], [place], [address], 11:37:43 XR, lumbar spine 2023 024 [email or web address] [facility] [place], [address], [place], [address], 11:37:43 Medication Orders None recorded. Patient TargetsNo targets recorded. Patient InstructionsNo instructions recorded. Reason for Referral None Reported. Results Created Date Observation Date Name Description Value Unit Range Abnormal Flag Note LastModifiedBy Organization Detail LastModifiedTime 04/24/19 24 XR, hip, unila teral No observ ation record ed. [facility] [place] [address] [facility] [address], [place], [address], 04/26/2023 12:54:26 04/24/19 24 XR, lumba r spine No observ ation record ed. [facility] [place] [address], [place], [address], 04/26/2023 12:56:59 Result Notes None recorded. Problems Name Problem SNOMED Code Status Onset Date Resolution Date Notes Provider Name and Address Organization Details Recorded Time Pain of left hip joint 5823020131149 00 Active 2023 RENAY Cruz, [place] - [facility] 09:36:32 Preoperativ e cardiovascu lar examination Active 2023 Manisha Lay CMA null, [facility] 11:36:04 Problem Notes None recorded. Procedures Surgical History Date Name Laterality Status Provider Name and Address Organization Details Recorded Time Carpal tunnel surgery completed Nimishaavni Morris [facility] 04/24/2023 09:35:03 Knee Surgery completed Nimisha Morris [facility] 04/24/2023 09:35:10 Hip surgery completed Nimishaavni Morris [facility] 04/24/2023 09:35:18 Imaging Results None recorded. [...] completed Not Available Not Available Not Available CUTCH CLEANER-GSTN 27 mg-20 mg-200 unit capsule TK 1 C PO Q 12 H 04/24 completed Not Available Not Available Not Available Virt-Onesimo 2.5 mg-25 mg-1 mg tablet 04/24 completed Not Available Not Available Not Available Fluzone High-Dose 9591-0120 (PF) 180 mcg/0.5 mL intramuscul ar syringe [...] Available Not Available Not Available Fluzone High-Dose 0419-8260 (PF) 180 mcg/0.5 mL intramuscul ar syringe [...] Updated DateTime 04/24/2023 153.67 cm 27.7 kg/m2 45467.3 g RENAY Cruz [place] [facility] [employer] [facility] 04/24/2023 09:40:37 Social History None recorded. Functional Status None recorded. Mental Status None recorded. Family History Relationship Description Onset Age of this Age Resolved Age Notes LastModified by Organization Details LastModified Time Father Heart disease [email or web address] Not available 2023 09:34:22 Mother Heart disease Not available 2023 09:34:22 Medical History Condition Response ARTHRITIS Y ANEMIA/BLOOD DISORDER Y Gynecological HistoryNo gynecological history recorded. Obstetrics History GPAL:G 0 P 0 0 0 0 Past Encounters Encounter ID Performer Location Encounter Start Date Encounter Closed Date Diagnosis/Indication Diagnosis SNOMED-CT Code Diagnosis ICD10 Code Diagnosis IMO Codes Diagnosis Note [id number] Deuce Minaya MD [facility] [address] [facility] [address] [place] [phone] 04/24/2023 08:59:38 04/27/2023 11:37:43 Pain of left hip joint 4301880312 34662 M25.552 Health Concerns Section Related Observation LastModified by Organization Detai ls LastModified Time None Recorded Concern Status LastModified by Organization Details LastModified Time None Recorded Advance Directives Directive None Recorded Payers Insurance Date Sequence Insurance Name Policy Number Policy Srivastava Covered Member ID Srivastava Member ID Guarantor Name 04/24/2023 1 [employer] (MEDICARE REPLACEMENT/ ADVANTAGE - PPO) [id number] 1 Fredna C Gunnar [id number] Fredna C Gunnar 04/24/2023 1 [facility] (MEDICARE REPLACEMENT/ ADVANTAGE - PPO) [id number] Fredna C Gunnar [id number] Fredna C Gunnar Notes Date Note Type [...] an appointment coming up Deuce Minaya MD [address] [place] [address], [place] [address], [place], [address], [place] [facility] 04/26/2023 13:01:27 OBGyn Episode No OBEpisode recorded.
--- OUTSIDE RECORDS SUMMARY | 2025-01-04 07:02 | XMS_ITS | Clinical Summary ---
Author Organization [facility] Address [address] [place] [address] Care Team Providers Care Business Control Specialist Name Role Phone Scout Lea MD Unavailable Gordo Huntley MD Primary Care Provider [phone] Allergies Active Allergy Reactions Criticality Noted Date Comments Diphenhydramine Hallucinations Medium 06/05/2020 Medications atorvastatin (LIPITOR) 10 mg tablet Take 1 tablet (10 mg total) by mouth daily Active UNABLE TO FIND Take 1 each by mouth daily Med Name: AlgaeCal Plus suppl Active vitamin B complex (VITAMINS B COMPLEX ORAL) Take 1 tablet by mouth daily Active acetaminophen (TYLENOL) 325 mg tablet Take 1 tablet (325 mg total) by mouth every 4 (four) hours as needed Active diclofenac DR (VOLTAREN) 75 mg EC tablet Take 75 mg by mouth daily as needed 12/14/19 25 Discontinu ed(Patient Reported) oxyCODONE-aceta minophen (PERCOCET) 5-325 mg per tabletIndicatio ns:Pain Take 1 tablet every 4 hours as needed for pain 30 tablet 12/15/19 25 Discontinu ed(Therapy completed) oxyCODONE-aceta minophen (PERCOCET) 5-325 mg per tabletIndicatio ns:Pain Take 1 tablet every 4 hours as needed for pain 30 tablet 12/15/19 25 Discontinu ed(Therapy completed) aspirin 81 mg enteric coated tabletIndicatio ns:Deep Vein Thrombosis Prevention Take 1 tablet (81 mg total) by mouth 2 (two) times a day 12/15/19 25 Discontinu ed(Patient Reported) Active Problems Problem Noted Date Diagnosed Date Preop cardiovascular exam 06/24/2023 Abnormality of gait and mobility 10/18/2020 Primary osteoarthritis of right shoulder 021 Overview (04/24/2020): Added automatically from request for surgery [id number] Arthropathy, unspecified 04/24/2020 Overview (04/24/2020): Added automatically from request for surgery [id number] Encounters Date Type Department Care Team Description 12/13/2024 10:15 AM CDT Lab [facility] [address] [place] [address] Elevated ferritin; Anemia, unspecified type 12/13/2024 9:30 AM CDT Office Visit [facility] Medicine Hematology [address] [facility] [address] [place] [address] Jeannie Burrows MD Elevated ferritin (Primary Dx); Anemia, unspecified type 12/06/2024 Telephone [facility] Medicine Hematology [address] [facility] [address] [place] [address] Zenaida Pereira from Last 3 Months Immunizations Immunization Administration Dates Next Due Hep A, Unspecified 02/27/2016 Meningococcal MCV4P (Menactra) 02/27/2016 Yellow Fever 02/27/2016 Surgical History Surgery Date Site/Laterality Comments TONSILLECTOMY SECTION 03/30/1972 - 03/29/1973 BREAST LUMPECTOMY 03/30/1997 - 03/29/1998 CATARACT EXTRACTION TOTAL KNEE ARTHROPLASTY 2015, 2017 Bilateral CARPAL TUNNEL RELEASE 2004, 2007 Right KNEE ARTHROSCOPY 03/30/2007 - 03/29/2008 Left TOTAL HIP ARTHROPLASTY 03/30/2018 - 03/29/2019 Right Medical History Medical History Date Comments Primary osteoarthritis of ri ght shoulder 04/24/2020 Added automatically from req uest for surgery [id number] Hyperlipidemia VINICIUS (obstructive sleep apnea) GERD (gastroesophageal reflux disease) Gastric erosion Migraine PONV (postoperative nausea a nd vomiting) Anesthesia hx PONV. Denies family hx of anesthesia complications Family History Medical History Relation Name Comments Alcohol abuse Father Heart attack Father Ulcers Father during albert for stomach ulcer Heart attack Mother Relation [...] on file Legal Sex Female 12:01 PM [employer] Gender Identity Not on file Sexual Orientation Not on file Obstetrics History Last Filed Vital Signs Vital Sign Reading Time Taken Comments Blood Pressure 129/75 12/13/2024 9:25 AM CDT Pulse 95 12/13/2024 9:25 AM CDT Temperature 36.7 C (98.1 F) 12/13/2024 9:25 AM CDT Respiratory Rate 16 10/18/2020 12:56 PM CDT Oxygen Saturation 97% 12/13/2024 9:25 AM CDT Inhaled Oxygen Concentration - - Weight 65.8 kg (145 lb) 12/13/2024 9:25 AM CDT Height 154.9 cm (5' 1) 12/13/2024 9:25 AM CDT Body Mass Index 27.4 12/13/2024 9:25 AM CDT Plan of Treatment Health Maintenance Due Date Last Done Comments Depression Screening 1940 Osteoporosis Screening-Bone Density Scan 1942 DTaP/Tdap/Td Vaccine (1 - Tdap) 1953 Hepatitis B Screening 01/06/1960 Pneumococcal vaccine 65+ (1 of 1 - PCV) 01/06/1992 Well Visit 65+ 2007 Fall Risk Assessment 06/20/2021 06/20/2020 Zoster Vaccine (2 of 3) 08/15/2021 06/20/2021, 04/01 Covid-19 Vaccine (3 - 2024-2 6 season) 2024 05/29/2020, 04/26/2020 Influenza Vaccine (#1) 2024 , 01/02/2021, 12/29/2019, Additional history exists Medical Devices Implanted Type Area Senior Marketing Data Analyst Device Identifier Shelf Expiration Date Model / Serial / Lot [employer] [id number] Delta Xtend 27mm Cementless Shoulder Standard Component Glenoid Latex Free - [id number] Implanted:Qty: 1 on 06/19/2020 by Scout Lea MD at [facility] [employer] [id number] 03/29/2025 [id number] / / [id number] [employer] [id number] Delta Xtend 4.5mm 18mm Shoulder Glenoid Screw Bone Metaglene - [id number] Implanted:Qty: 1 on 06/19/2020 by Scout Lea MD at [facility] Right: Shoulder [employer] [id number] 10/27/2024 [id number] / / [id number] [employer] [id number] Component Glenoid Delta Xtend +4mm Od38mm - [id number] Implanted:Qty: 1 on 06/19/2020 by Scout Lea MD at [facility] Right: Shoulder [employer] [id number] 09/27/2023 [id number] / / [id number] [employer] [id number] Delta Xtend 4.5mm 42mm Lock Shoulder Glenoid Screw Bone Metaglene - [id number] Implanted:Qty: 1 on 06/19/2020 by Scout Lea MD at [facility] Right: Shoulder [employer] [id number] 01/27/2025 [id number] / / [id number] [employer] [id number] Delta Xtend 4.5mm 18mm Shoulder Glenoid Screw Bone Metaglene - [id number] Implanted:Qty: 1 on 06/19/2020 by Scout Lea MD at [facility] Right: Shoulder [employer] [id number] 02/26/2025 [id number] / / [id number] [employer] [id number] Delta Xtend 4.5mm 42mm Lock Shoulder Glenoid Screw Bone Metaglene - [id number] Implanted:Qty: 1 on 06/19/2020 by Scout Lea MD at [facility] Right: Shoulder [employer] [id number] 01/27/2025 [id number] / / [id number] [employer] [id number] Global Unite 10mm 113mm Modular Shoulder Standard Stem Humeral - [id number] Implanted:Qty: 1 on 06/19/2020 by Scout Lea MD at [facility] Right: Shoulder [employer] [id number] 02/26/2030 [id number] / / [id number] [employer] [id number] Implant Shldr Xtend Modecc 145epi Por Sz1 Rt - [id number] Implanted:Qty: 1 on 06/19/2020 by Scout Lea MD at [facility] Right: Shoulder [employer] [id number] 04/29/2030 [id number] / / [id number] [employer] [id number] Delta Xtend 38mm Shoulder +3mm Standard Cup Humeral Polyethylene Latex Free - [id number] Implanted:Qty: 1 on 06/19/2020 by Scout Lea MD at [facility] Right: Shoulder [employer] [id number] 12/27/2024 [id number] / / [id number] Procedures Procedure Name Priority Date/Time Associated Diagnosis Comments EGFR Routine 12/13/2024 10:15 AM CDT Elevated ferritin Anemia, unspecified type DIFFERENTIAL AUTO Routine 12/13/2024 10: 15 AM CDT Elevated ferritin Anemia, unspecified type LACTATE DEHYDROGENASE Routine 12/13/2024 10:15 AM CDT Elevated ferritin Anemia, unspecified type CRP (ACUTE PHASE) Routine 12/13/2024 10: 15 AM CDT Elevated ferritin Anemia, unspecified type ERYTHROCYTE SEDIMENTATION RATE Routine 12/13/2024 10:15 AM CDT Elevated ferritin Anemia, unspecified type RETICULOCYTES Routine 12/13/2024 10:15 AM CDT Elevated ferritin Anemia, unspecified type IRON PROFILE W/ IBC Routine 12/13/2024 1 0:15 AM CDT Elevated ferritin Anemia, unspecified type FERRITIN Routine 12/13/2024 10:15 AM CDT Elevated ferritin Anemia, unspecified type CBC WITH AUTO DIFFERENTIAL Routine 12/13/2024 10:15 AM CDT Elevated ferritin Anemia, unspecified type COMPREHENSIVE METABOLIC PANEL Routine 12/13/2024 10:15 AM CDT Elevated ferritin Anemia, unspecified type HAPTOGLOBIN Routine 12/13/2024 10:15 AM CDT Elevated ferritin Anemia, unspecified type from Last 3 Months Results * eGFR (12/13/2024 10:15 AM CDT) eGFR >90 >=60 mL/min/1. 73 m2 Comment: Interpretive Data Reference Interval Normal >/= 90 mL/min/1.73m2 Mildly decreased* 60 - 89 mL/min/1.73m2 Mildly to moderately decreased 45 - 59 mL/min/1.73m2 Moderately to severely decreased 30 - 44 mL/min/1.73m2 Severely decreased 15 - 29 mL/min/1.73m2 Kidney Failure < 15 mL/min/1.73m2 *Relative to young adult level Estimated glomerular filtration rate is determined by the 2020 CKD-EPI equation recommended by the National Kidney Foundation (A Unifying Approach to GFR Estimation: Recommendations of the NKF-ASK Task Force on Reassessing the Inclusion of Race in Diagnosing Kidney Disease, JASN 2020). The CKD-EPI equation should not be used for patients with unstable renal function and has not been validated in children and those over 70. Current interpretive data was last reviewed 2021. Blood 12/13/2024 10:1 5 AM CDT 12/13/2024 10:44 AM CDT Jeannie Burrows MD LAB BLOOD ORDERABLES Final Result [facility] Department [place] [address] * (ABNORMAL) Differential, auto (12/13/2024 10:15 AM CDT) Neutrophil abs 6.61(H) 1.50 - 6.50 K/cumm Comment:Testing performed by : [facility], [address] [place] [id number] Imm gran abs 0.11(H) 0.00 - 0.10 K/cumm [facility] Lymphocyte abs 1.29 0.80 - 3.30 K/cumm [facility] Monocyte abs 0.79 0.20 - 0.80 K/cumm [facility] Eosinophil abs 0.16 0.00 - 0.50 K/cumm [facility] Basophil abs 0.11(H) 0.00 - 0.10 K/cumm [facility] Neutrophil pct 72.9 % [facility] Comment: Interpretive Data Percent cell count reference ranges are not reported, since discordance with absolute values may lead to misinterpretation of CBC data. Current Interpretive Data was last revised on 2017. Imm gran pct 1.2 % [facility] Comment: Interpretive Data Percent cell count reference ranges are not reported, since discordance with absolute values may lead to misinterpretation of CBC data. Current Interpretive Data was last revised on 2017. Lymphocyte pct 14.2 % [facility] Comment: Interpretive Data Percent cell count reference ranges are not reported, since discordance with absolute values may lead to misinterpretation of CBC data. Current Interpretive Data was last revised on 2017. Monocyte pct 8.7 % [facility] Comment: Interpretive Data Percent cell count reference ranges are not reported, since discordance with absolute values may lead to misinterpretation of CBC data. Current Interpretive Data was last revised on 2017. Eosinophil pct 1.8 % [facility] Comment: Interpretive Data Percent cell count reference ranges are not reported, since discordance with absolute values may lead to misinterpretation of CBC data. Current Interpretive Data was last revised on 2017. Basophil pct 1.2 % [facility] Comment: Interpretive Data Percent cell count reference ranges are not reported, since discordance with absolute values may lead to misinterpretation of CBC data. Current Interpretive Data was last revised on 2017. Blood 12/13/2024 10:1 5 AM CDT 12/13/2024 10:44 AM CDT Jeannie Burrows MD LAB BLOOD ORDERABLES Final Result Performing Organization Address [facility] Co de Phone Number [facility] [place] [address] * Iron profile w/ IBC (12/13/2024 10:15 AM CDT) Pathologist [facility] [place] Iron 64 35 - 145 mcg/dL TIBC 324 250 - 400 mcg/dL [facility] Transferrin saturation 20 20 - 50 % [facility] Blood 12/13/2024 10:1 5 AM CDT 12/13/2024 2:52 PM CDT Jeannie Burrows MD LAB BLOOD ORDERABLES Final Result Performing Organization Address City/[facility] Co de Phone Number [facility] Department [place] [address] * (ABNORMAL) CBC with auto differential (12/13/2024 10:15 AM CDT) Pathologist [facility] WBC 9.07 3.80 - 9.90 K/cumm Comment:Testing performed by : [facility], [address] [place] [id number] Hgb 11.2(L) 11.9 - 15.5 g/dL [facility] Comment:Testing performed by : [facility], [address] [place] [address] Hct 33.5(L) 35.6 - 45.5 % [facility] Comment:Testing performed by : [facility], [address] [place] [address] Plt 365 150 - 400 K/cumm [facility] Comment:Testing performed by : [facility], [address] [place] [address] MPV 10.0 9.1 - 12.3 fL [facility] RBC 3.16(L) 3.90 - 5.20 M/cumm [facility] MCV 106.0(H) 81.3 - 96.4 fL [facility] MCH 35.4(H) 27.1 - 33.3 pg [facility] MCHC 33.4 32.3 - 35.7 g/dL [facility] RDW CV 16.3(H) 11.1 - 14.9 % [facility] RDW SD 61.0(H) 35.7 - 48.1 fL [facility] NRBC abs 0.09(H) 0.00 - 0.01 K/cumm [facility] Blood 12/13/2024 10:1 5 AM CDT 12/13/2024 10:44 AM CDT us Jeannie Burrows MD LAB BLOOD ORDERABLES Final Result Performing Organization Address [facility] Co de Phone Number [facility] Department [place] [address] * (ABNORMAL) Erythrocyte sedimentation rate (12/13/2024 10:15 AM CDT) Erythrocyte sedimentation rate 52(H) 1 - 30 mm/hr Blood 12/13/2024 10:1 5 AM CDT 12/13/2024 12:17 PM CDT Jeannie Burrows MD LAB BLOOD ORDERABLES Final Result Performing Organization Address City/[facility] Co de Phone Number [facility] [place] [address] * Reticulocyte Count (12/13/2024 10:15 AM CDT) Retics, absolute 66 20 - 87 K/cumm Retics 2.1 0.4 - 2.9 % [facility] Reticulocyte Hgb 33.6 30.5 - 38.0 pg [facility] Blood 12/13/2024 10:1 5 AM CDT 12/13/2024 10:44 AM CDT us Jeannie Burrows MD LAB BLOOD ORDERABLES Final Result Performing Organization Address City/[facility]/ZIP Co de Phone Number [facility] [place] [address] * CRP (acute phase) (12/13/2024 10:15 AM CDT) [facility] CRP 8.3 <=10.0 mg/L Blood 12/13/2024 10:1 5 AM CDT 12/13/2024 2:52 PM CDT us Jeannie Burrows MD LAB BLOOD ORDERABLES Final Result Performing Organization Address City/[facility]/ZIP Co de Phone Number [facility] Department [place] [address] * Lactate dehydrogenase (LD) (12/13/2024 10:15 AM CDT) [facility] Lactate dehydrogenase (LDH) 194 100 - 250 Units/L Comment:Testing performed by : [facility], [address] [place] [id number] Blood 12/13/2024 10:1 5 AM CDT 12/13/2024 10:44 AM CDT us Jeannie Burrows MD LAB BLOOD ORDERABLES Final Result [facility] [place] [address] * Haptoglobin (12/13/2024 10:15 AM CDT) [facility] Haptoglobin 86.0 30.0 - 200.0 mg/dL Blood 12/13/2024 10:1 5 AM CDT 12/13/2024 2:52 PM CDT Jeannie Burrows MD LAB BLOOD ORDERABLES Final Result Performing Organization Address City/[facility]/[place] [address] * (ABNORMAL) Ferritin (12/13/2024 10:15 AM CDT) [facility] Ferritin 592(H) 13 - 150 ng/mL Blood 12/13/2024 10:1 5 AM CDT 12/13/2024 2:52 PM CDT Jeannie Burrows MD LAB BLOOD ORDERABLES Final Result Performing Organization Address [facility] [place] [address] * (ABNORMAL) Comprehensive metabolic panel (12/13/2024 10:15 AM CDT) [facility] Sodium 139 135 - 145 mmol/L Comment:Testing performed by : [facility], [address] [place] [id number] Potassium, pl 4.1 3.3 - 4.9 mmol/L [facility] Chloride 103 97 - 110 mmol/L [facility] CO2 30 22 - 32 mmol/L [facility] Anion gap 6 2 - 15 mmol/L [facility] BUN 12 6 - 25 mg/dL [facility] Creatinine 0.56(L) 0.60 - 1.10 mg/dL [facility] Glucose 83 70 - 199 mg/dL [facility] Comment: Interpretive Data Fasting glucose >/= 126 mg/dl is diagnostic for diabetes. Fasting is defined as no caloric intake for at least 8 hours. Fasting glucose between 100 mg/dl to 125 mg/dl is diagnostic of prediabetes. In a patient with classic symptoms of hyperglycemia or hyperglycemic crisis, a random glucose >/= 200 mg/dl is diagnostic for diabetes. In the absence of unequivocal hyperglycemia, results should be confirmed by repeat testing. The classification and Diagnosis of Diabetes Diabetes Care 2021; 46: S19-S40. Current interpretive data was last revised 2022. Calcium 10.0 8.5 - 10.3 mg/dL [facility] Bilirubin, total 0.8 0.1 - 1.2 mg/dL [facility] Protein, pl 7.3 6.5 - 8.5 g/dL [facility] Albumin 4.4 3.5 - 5.0 g/dL [facility] Alk phos 60 40 - 130 Units/L [facility] ALT 19 7 - 45 Units/L [facility] AST 19 10 - 45 Units/L [facility] Blood 12/13/2024 10:1 5 AM CDT 12/13/2024 10:44 AM CDT Jeannie Burrows MD LAB BLOOD ORDERABLES Final Result [facility] Department [place] [address] from Last 3 Months Insurance T MEDICARE [facility] MEDICARE ADVANTAGE U[employer] MEDICARE ADVANTAGE [employer] MEDICARE Advance Directives For more information, please contact: [phone] Documents on File Type Date Recorded Patient Manager Of [employer] Expl anation ADVANCE DIRECTIVE 06/05/2020 12:23 PM * Full Code (Latest Code Status on File) Date Activated Date Inactivated Comments 06/19/2020 4:16 PM 06/20/2020 7:52 PM Care Teams Business Control Specialist Relationship Specialty Start Date End Date Gordo Huntley MD [address] [phone] PCP - General Family Medicine 06/24/23 Scout Lea MD [address] [facility] [address] [address] Consulting Physician Orthopedic Surgery 06/20/20
[2025-01-04 08:04] LABS: Hematocrit 31.2 % (37.0-47.0); Hemoglobin 10.2 g/dL (12.0-15.0); Immature Granulocyte Percent A 0.9 % (0-0.5); Lymphocytes Absolute Auto 1.95 K/mm3 (0.9-3.2); Mean Corpuscular HGB Conc 32.7 g/dl (32-36); Mean Corpuscular Hemoglobin 35.2 pg (26-34); Mean Corpuscular Volume 107.6 fl (80-100); Nucleated Red Blood Cells Absolute Auto 0.060 K/mm3 (0.0-0.012); Nucleated Red Blood Cells Perc 1.3 % (0.0-0.2); Platelet Count Result 355 k/mm3 (150-375); Red Blood Count 2.90 M/mm3 (4.2-5.4); White Blood Count 4.5 K/mm3 (4.5-10.0)
[2025-01-04 08:18] LABS: Alanine Aminotransferase 18 U/L (6-35); Albumin Level 3.8 g/dL (3.5-5.1); Alkaline Phosphatase 53 U/L (38-126); Anion Gap 8 mmol/L (4-12); Aspartate Amino Transferase 29 U/L (14-36); Bilirubin,Total 0.8 mg/dL (0.2-1.3); Blood Urea Nitrogen 14 mg/dL (7-17); Calcium 9.2 mg/dL (8.4-10.2); Carbon Dioxide 26 mmol/L (22-30); Chloride 105 mmol/L (98-107); Cholesterol 132 mg/dL (0-200); Estimated Glomerular Filt Rate > 60; Glucose 96 mg/dL (65-110); HDL Direct 53 mg/dL; Potassium 4.1 mmol/L (3.4-5.0); Sodium 139 mmol/L (137-145); Total Protein 6.5 g/dL (6.3-8.2); Triglycerides 53 mg/dL (<150)
[2025-01-04 08:19] LABS: Iron 195 ug/dL (37-170)
[2025-01-04 08:26] LABS: Anisocytosis 1+; Hypochromasia 1+
[2025-01-04 08:27] LABS: Schistocytes None Seen; Target Cells Occasional
[2025-01-04 08:31] LABS: Percent Iron Saturation 67 % (20-50)
[2025-01-04 09:01] LABS: Ferritin 238.00 ng/mL (11.1-264)
== END 2025-01-04 07:00 | disposition home or self-care (01) ==
PROVIDERS: PCP Family Medicine; Referring Provider Internal Medicine Hematology & Oncology; Visit Provider Family Medicine
DX: E83.19 Other disorders of iron metabolism (principal); D53.1 Other megaloblastic anemias, not elsewhere classified; R73.01 Impaired fasting glucose; E78.2 Mixed hyperlipidemia
CPT/HCPCS: 36415; 80048; 80061; 80076; 82728; 83540; 83550; 85025